=== PATIENT | male | born 1955 | race Native Hawaiian/Other Pacific Islander ===

== ENCOUNTER 2017-07-28 18:38 | Inpatient (IN) | payer OTHER ==
[2017-07-28] MEDS ORDERED: Sodium Chloride 0.9% 1,000 ML IV SCH (19:15)
[2017-07-28 19:27] LABS: URINE BILIRUBIN SMALL (NEGATIVE); URINE BLOOD TRACE-INTACT (NEGATIVE); URINE GLUCOSE (UA) NEGATIVE (NEGATIVE); URINE KETONE >=80 mg/dL (NEGATIVE); URINE LEUKOCYTE ESTERASE TRACE Leu/uL (NEGATIVE); URINE PROTEIN 30 mg/dL (<30 mg/dL); URINE UROBILINOGEN 0.2 E.U./dL (<1 E.U./dL)
[2017-07-28 19:30] LABS: URINE APPEARANCE SL CLOUDY (CLEAR); URINE COLOR YELLOW (YELLOW)
[2017-07-28 19:52] LABS: BASO # 0.04 K/mm3 (0.0-2.0); BASO % 0.2 % (0.0-3.0); GRAN # 18.98 (1.4-6.5); GRAN % 85.1 % (50.0-68.0); HEMATOCRIT 38.5 % (42.0-52.0); LYMPH # 1.2 (1.2-3.4); LYMPH % 5.3 % (22.0-35.0); MEAN CELL VOLUME 82.4 fl (80.0-105.0); MEAN CORPUSCULAR HEMOGLOBIN 28.5 pg (25.0-35.0); MEAN CORPUSCULAR HGB CONC 34.5 g/dl (31.0-37.0); MEAN PLATELET VOLUME 10.1 fl (7.0-11.0); MONO # 2.1 (0.1-0.6); MONO % 9.4 % (1.0-6.0); RED CELL DISTRIBUTION WIDTH 13.4 % (11.5-14.5); WHITE BLOOD COUNT 22.3 10^3/ul (4.5-11.0)
[2017-07-28 19:57] LABS: VENOUS BLOOD GAS BASE EXCESS -1.7 mmol/L (0.0-2.0); VENOUS BLOOD PH 7.42 (7.32-7.43)
[2017-07-28 20:02] LABS: ALB/GLOB RATIO 1.2 (1.1-1.8); ALKALINE PHOSPHATASE 60 U/L (38-126); ALT/SGPT 33 U/L (7-56); AMYLASE 68 U/L (35-125); AST/SGOT 27 U/L (17-59); BILIRUBIN,TOTAL 1.1 mg/dL (0.2-1.3); BLOOD UREA NITROGEN 16 mg/dL (7-21); CARBON DIOXIDE 20 mmol/L (21-33); CHLORIDE 103 mmol/L (98-107); GFR AFRICAN-AMERICAN > 60; GLUCOSE,RANDOM 133 mg/dL (70-110); LIPASE 118 U/L (23-300); POTASSIUM 3.9 mmol/L (3.6-5.0); SODIUM 136 mmol/L (132-148); TOTAL PROTEIN 7.3 g/dL (5.8-8.3)
[2017-07-28 20:06] LABS: INR 1.18 (0.93-1.08); PARTIAL THROMBOPLASTIN TIME 31.5 Seconds (23.7-30.8)
[2017-07-28 20:15] LABS: TROPONIN I < 0.01 ng/mL
[2017-07-28] MEDS ORDERED: metroNIDAZOLE IV 500 mg/100 ml 500 MG/100 ML BAG IVPB STA (20:29)
[2017-07-28] MEDS ORDERED: cefTRIAXone 1 gm 1 GM/100 ML BAG IVPB STA (20:33)
--- NOTE | 2017-07-28 21:36 | ED PDOC ---
Arrival/HPI - General Chief Complaint: Flu-like Symptoms Time Seen by Provider: 07/28/17 19:03 Historian: Patient - History of Present Illness Narrative History of Present Illness (Text): 07/28/17 21:37 A 61 year old male, whose past medical history includes ulcerative colitis, stomach ulcer, GI bleeding and Crohn's disease, presents to the emergency department complaining of abdominal pain and diarrhea for the past few days. Patient also notes chills and subjective fever. Patient denies any chest pain, nausea, vomiting, shortness of breath, headache, dizziness or any other complaints at this time. PMD: Dr. Lindo Time/Duration: < week Symptom Onset: Sudden Symptom Course: Unchanged Activities at Onset: Rest Context: Home Past Medical History - Provider Review Nursing Documentation Reviewed: Yes - Travel History If Yes, travel location?: [place] - Infectious Disease Hx of Infectious Diseases: None - Cardiac Hx Cardiac Disorders: No - Pulmonary Hx Respiratory Disorders: No - Neurological Hx Neurological Disorder: No Hx Paralysis: No - HEENT Hx HEENT Disorder: Yes Hx Cataracts: Yes (bilat iol) - Renal Hx Kidney Stones: Yes Other/Comment: ELEVATED PSA - Endocrine/Metabolic Hx Endocrine Disorders: No - Hematological/Oncological Hx Blood Transfusions: No Hx Blood Transfusion Reaction: No - Integumentary Hx Dermatological Disorder: No - Musculoskeletal/Rheumatological Hx Musculoskeletal Disorders: No - Gastrointestinal Hx Gastrointestinal Disorders: Yes (ulcerative colitis) Hx Bowel Surgery: Yes (colectomy) Hx Crohn's Disease: Yes - Genitourinary/Gynecological Hx Genitourinary Disorders: Yes (elevated psa) Hx Prostate Problems: Yes - Psychiatric Hx Emotional Abuse: No Hx Physical Abuse: No Hx Substance Use: No - Surgical History Hx Cardiac Catheterization: Yes (aug 2014 just routine asymtomatic per pt negative) Other/Comment: TURP and colectomy 2011 - Anesthesia Hx Anesthesia Reactions: No Hx Malignant Hyperthermia: No - Suicidal Assessment Feels Threatened In Home Enviroment: No Family/Social History - Physician Review Nursing Documentation Reviewed: Yes Family/Social History: No Known Family HX Smoking Status: Never Smoked Hx Alcohol Use: Yes (OCCASSIONAL) Frequency of alcohol use: Socially Hx Substance Use: No Allergies/Home Meds Allergies/Adverse Reactions: Allergies No Known Allergies Allergy (Verified 07/28/17 21:54) Home Medications: Home Meds Medication Instructions Recorded Confirmed Vedolizumab [Entyvio] 1 vial IV ONCE 07/28/17 07/28/17 Review of Systems - Physician Review All systems were reviewed & negative as marked: Yes - Review of Systems Constitutional: Fevers, Other (chills) Respiratory: absent: SOB Cardiovascular: absent: Chest Pain Gastrointestinal: Abdominal Pain, Diarrhea. absent: Nausea, Vomiting Neurological: absent: Headache, Dizziness Physical Exam Vital Signs Reviewed: Yes Vital Signs Temp Pulse Resp BP Pulse Ox 07/28/17 20:26 98.6 F 82 18 111/65 96 07/28/17 18:50 100.2 F H 97 H 18 127/63 96 Temperature: Afebrile Blood Pressure: Normal Pulse: Regular Respiratory Rate: Normal Appearance: Positive for: Well-Appearing, Non-Toxic, Comfortable Pain Distress: None Mental Status: Positive for: Alert and Oriented X 3 - Systems Exam Head: Present: Atraumatic, Normocephalic Pupils: Present: PERRL Extroacular Muscles: Present: EOMI Conjunctiva: Present: Normal Mouth: Present: Moist Mucous Membranes Neck: Present: Normal Range of Motion Respiratory/Chest: Present: Clear to Auscultation, Good Air Exchange. No: Respiratory Distress, Accessory Muscle Use Cardiovascular: Present: Regular Rate and Rhythm, Normal S1, S2. No: Murmurs Abdomen: Present: Normal Bowel Sounds. No: Tenderness, Distention, Peritoneal Signs Back: Present: Normal Inspection Upper Extremity: Present: Normal Inspection. No: Cyanosis, Edema Lower Extremity: Present: Normal Inspection. No: Edema Neurological: Present: GCS=15, CN II-XII Intact, Speech Normal Skin: Present: Warm, Dry, Normal Color. No: Rashes Psychiatric: Present: Alert, Oriented x 3, Normal Insight, Normal Concentration Medical Decision Making ED Course and Treatment: 07/28/17 21:34 Impression: A 61 year old male with abdominal pain, diarrhea, fever and chills. Plan: -- EKG -- chest xray -- labs -- Urinalysis -- Rocephin, IV fluids, Flagyl -- Reassess and disposition Prior Visits: Notes and results from previous visits were reviewed. Patient last reported to the emergency department on 11/10/16 for evaluation of non bloody, watery diarrhea. Progress Notes: EKG: Ordered, reviewed, and independently interpreted the EKG. Rate : 89 BPM Rhythm : NSR Interpretation : incomplete right bundle branch block, nonspecific ST segment changes chest xray: No active disease, interpreted by me. case d/w medical billing coder and dr prieto for admission 07/29/17 06:51 - Lab Interpretations Lab Results: 07/28/17 19:30 07/28/17 19:30 Lab Results 07/28/17 19:30: ESR 30 H 07/28/17 19:30: pO2 128 H, VBG pH 7.42, VBG pCO2 34.0 L, VBG HCO3 22.1, VBG Total CO2 23.1, VBG O2 Sat (Calc) 99.4 H, VBG Base Excess -1.7 L, VBG Potassium 4.0, Sodium 134.0, Chloride 104.0, Glucose 140 H, Lactate 1.9, FiO2 21.0, Venous Blood Potassium 4.0 07/28/17 19:30: Sodium 136, Chloride 103, Potassium 3.9, Carbon Dioxide 20 L, Anion Gap 17, BUN 16, Creatinine 1.1, Est GFR ( Amer) > 60, Est GFR (Non- Af Amer) > 60, Random Glucose 133 H, Calcium 9.0, Total Bilirubin 1.1, AST 27, ALT 33, Alkaline Phosphatase 60, Lactate Dehydrogenase 401, Total Creatine Kinase 98, Troponin I < 0.01, Total Protein 7.3, Albumin 4.0, Globulin 3.3, Albumin/Globulin Ratio 1.2, Amylase 68, Lipase 118 07/28/17 19:30: PT 12.7 H, INR 1.18 H, APTT 31.5 H 07/28/17 19:30: WBC 22.3 H D, RBC 4.67, Hgb 13.3 L, Hct 38.5 L, MCV 82.4, MCH 28.5, MCHC 34.5, RDW 13.4, Plt Count 160, MPV 10.1, Gran % 85.1 H, Lymph % (Auto ) 5.3 L, [place] % (Auto) 9.4 H, Eos % (Auto) 0.0 L, Baso % (Auto) 0.2, Gran # 18.98 H, Lymph # 1.2, [place] # 2.1 H, Eos # 0.0, Baso # 0.04 07/28/17 19:00: Urine Color Yellow, Urine Appearance Sl cloudy, Urine pH 6.0, Ur Specific [place] >= 1.030, Urine Protein 30 H, Urine Glucose (UA) Negative, Urine Ketones >=80, Urine Blood Trace-intact H, Urine Nitrate Negative, Urine Bilirubin Small H, Urine Urobilinogen 0.2, Ur Leukocyte Esterase Trace H, Urine RBC 1 - 3, Urine WBC 5 - 10, Ur Epithelial Cells 1 - 3 I have reviewed the lab results: Yes - RAD Interpretation Radiology Orders: 07/28/17 20:01 CHEST PORTABLE [RAD] Stat - EKG Interpretation Interpreted by ED Physician: Yes Type: 12 lead EKG - Medication Orders Current Medication Orders: Acetaminophen (Tylenol 325mg Tab) 650 mg PO Q6H PRN PRN Reason: Fever >100.4 F Docusate Sodium (Colace) 100 mg PO DAILY KRYS Sodium Chloride (Sodium Chloride 0.9%) 1,000 mls @ 150 mls/hr IV .Q6H40M KRYS Morphine Sulfate (Morphine) 2 mg IVP Q4H PRN PRN Reason: Pain, moderate (4-7) Discontinued Medications Sodium Chloride (Sodium Chloride 0.9%) 1,000 mls @ 200 mls/hr IV .Q5H KRYS Last Admin: 07/28/17 19:48 Dose: 200 mls/hr eMAR Start Stop Document 07/28/17 19:48 CNR (Rec: 07/28/17 19:49 CNR [id number] Intravenous Solution Start Date 07/28/17 Start Time 19:49 Metronidazole (Flagyl) 500 mg in 100 mls @ 100 mls/hr IVPB STAT STA PRN Reason: Protocol Stop: 07/28/17 21:28 Last Admin: 07/28/17 21:22 Dose: 100 mls/hr eMAR Start Stop Document 07/28/17 21:22 OCS (Rec: 07/28/17 21:22 OCS [id number]) Intravenous Solution Start Date 07/28/17 Start Time 21:22 Ceftriaxone Sodium (Rocephin 1 Gram Ivpb) 1 gm in 100 mls @ 200 mls/hr IVPB STAT STA PRN Reason: Protocol Stop: 07/28/17 21:02 Last Admin: 07/28/17 20:49 Dose: 200 mls/hr eMAR Start Stop Document 07/28/17 20:49 CNR (Rec: 07/28/17 20:49 CNR [id number]) Intravenous Solution Start Date 07/28/17 Start Time 20:49 Ciprofloxacin (Cipro 400mg/200ml Dsw) 400 mg in 200 mls @ 133.3 mls/hr IVPB Q12 KRYS PRN Reason: Protocol Stop: 07/29/17 00:31 Last Admin: 07/29/17 00:16 Dose: 133.3 mls/hr eMAR Start Stop Document 07/29/17 00:16 MIRIAM (Rec: 07/29/17 00:16 MIRIAM [id number]) Intravenous Solution Start Date 07/29/17 Start Time 00:16 End Date 07/29/17 End time 01:47 Total Infusion Time 91 Pneumococcal Polyvalent Vaccine (Pneumovax 23 Vaccine) 0.5 ml IM .ONCE ONE Stop: 07/28/17 23:14 - Scribe Statement The provider has reviewed the documentation as recorded by the Alvaro Phan Provider Scribe Attestation: All medical record entries made by the Scribcharlene were at my direction and personally dictated by me. I have reviewed the chart and agree that the record accurately reflects my personal performance of the history, physical exam, medical decision making, and the department course for this patient. I have also personally directed, reviewed, and agree with the discharge instructions and disposition. Disposition/Present on Arrival - Present on Arrival Any Indicators Present on Arrival: No History of DVT/PE: No History of Uncontrolled Diabetes: No Urinary Catheter: No History of Decub. Ulcer: No History Surgical Site Infection Following: None - Disposition Have Diagnosis and Disposition been Completed?: Yes Diagnosis: Leucocytosis Disposition: HOSPITALIZED Disposition Time: 21:00 Condition: GOOD
[2017-07-28] MEDS ORDERED: Ciprofloxacin 400mg/200ml D5W 400 MG/200 ML BAG IVPB SCH (23:00)
[2017-07-28] MEDS ORDERED: Pneumococcal 23-Valent Vaccine IM ONE (23:13)
[2017-07-28 23:14] VITALS: BMI 24.2
--- NOTE | 2017-07-29 06:01 | CP.PCM.HP ---
<ChynaAaron - Last Filed: 07/29/17 06:22> History of Present Illness - History of Present Illness History of Present Illness: H/P For IM - TKS DO, PGY-1 CC: Abdominal Pain + Intractible Diarrhea HPI: 61 M PMHx pertinent for Crohn's and UC s/p colectomy presents with ~36 hours duration of crampy, episodic, non-radiating abdominal pain of 8/10 severity associated with n/v/d and f/ch. Patient states that he returned from [place] yesterday, where he had fried chicken and pizza, but nothing out of the ordinary , and that the pain started when he got back. He states that he feels very similarly to the way he felt the last time he was here for the same complaint, which was in 2016. Of note, patient also describes some penile pain, and states that he had a TURP procedure in the past. Pt denies cp/sob/dysuria/frequency/urgency/hematuria/hematochezia/hematemesis PMHx: BPH, Ulcerative Colitis, Crohn's disease, GIB, gastric ulcer, Chronic iron -def anemia PSHx: TURP, prostate biopsy, Colectomy 2011, Left cardiac cath 2013, Bl cataracts SocialHx: +Social etoh; Never smoked, denies h/o drug use. Lives at home with family Allergies: NKDA FamilyHx: Denies Meds: None Present on Admission - Present on Admission Any Indicators Present on Admission: No Review of Systems - Hematologic/Lymphatic Additional comments: ROS: Constitutional: pt denies fever, chills, generalized weakness ENT: pt denies dysphagia, otalgia, hearing deficit, rhinorrhea Eyes: pt denies sudden loss of vision, diplopia, blurred vision MSK: pt denies muscle stiffness, joint pain, extremity cramping Cardio: pt denies sob, heart murmur, cp Pulm: pt denies cough, hemoptysis, wheeze GI: +see hpi : +see hpi; pt denies burning on urination, urinary frequency, hematuria, urinary urgency Neuro: pt denies paresis, paresthesia, dizziness, shirley, numbness, tingling Derm: pt denies skin changes, lesions, nail changes Endo: pt denies intolerance to heat/cold, diaphoresis, night sweats, polydipsia Psych: pt denies anxiety, depression, mood changes Past Patient History - Infectious Disease Hx of Infectious Diseases: None - Past Medical History & Family History Past Medical History?: Yes - Past Social History Smoking Status: Never Smoked - CARDIAC Hx Cardiac Disorders: Yes - PULMONARY Hx Respiratory Disorders: No - NEUROLOGICAL Hx Neurological Disorder: No - HEENT Hx HEENT Problems: Yes Hx Cataracts: Yes (bilat iol) - RENAL Hx Chronic Kidney Disease: Yes Hx Kidney Stones: Yes Other/Comment: ELEVATED PSA - ENDOCRINE/METABOLIC Hx Endocrine Disorders: No - HEMATOLOGICAL/ONCOLOGICAL Hx Blood Disorders: Yes Other/Comment: iron infusions by dr almaguer x 12 weeks - INTEGUMENTARY Hx Dermatological Problems: No - MUSCULOSKELETAL/RHEUMATOLOGICAL Hx Musculoskeletal Disorders: No Hx Falls: No - GASTROINTESTINAL Hx Gastrointestinal Disorders: Yes (ulcerative colitis,GI BLEED) Hx Crohn's Disease: Yes - GENITOURINARY/GYNECOLOGICAL Hx Genitourinary Disorders: Yes (elevated psa) Hx Prostate Problems: Yes - PSYCHIATRIC Hx Emotional Abuse: No Hx Physical Abuse: No Hx Substance Use: No - SURGICAL HISTORY Hx Surgeries: Yes Hx Cardiac Catheterization: Yes (aug 2014 just routine asymtomatic per pt negative) Other/Comment: TURP and colectomy 2011 - ANESTHESIA Hx Anesthesia Reactions: No Hx Malignant Hyperthermia: No Meds Allergies/Adverse Reactions: Allergies Allergy/AdvReac Type Severity Reaction Status Date / Time No Known Allergies Allergy Verified 07/28/17 21:54 Physical Exam - Additional Findings Additional findings: Phys Exam: VS as below Constitutional: a&o x 4, nad Head and Neck: neck supple, no jvd, trachea midline, carotid midline, no cervical/head mass Eyes: contreras, nonicteric sclera, eom intact ENT: auditory acuity grossly intact, throat not congested, no nasal deformity Cardio: rrr, no m/r/g, no carotid bruit, nml s1, s2 Pulm: no accessory muscle use, equal nml breath sounds bilaterally, ctab Abd: +diffuse abdominal tenderness; s/nd, nbs x 4 q, no palpable masses Derm: no rashes, no ulcers, no lesions Extr: no edema, no cyanosis, no calf tenderness, no lesions, no varicosities Neuro: cn II-XII grossly intact, ue and le 5/5 muscle strength bilaterally, no los ue, le bilaterally and core Results - Vital Signs Recent Vital Signs: Last Vital Signs Temp 98.6 F 07/28/17 22:59 Pulse 82 07/28/17 22:59 Resp 18 07/28/17 22:59 BP 111/65 07/28/17 22:59 Pulse Ox 98 07/28/17 22:57 - Labs Result Diagrams: 07/28/17 19:30 07/28/17 19:30 Assessment & Plan - Assessment and Plan (Free Text) Assessment: A/P 61 M w/ PMHx of UC and Crohn's presenting 36 hour duration abdominal pain + n/v/ d/f/ch, indicative of previous bouts of colitis Abdominal pain Patient has a h/o Crohn's disease s/p partical colectomy with anal sparing Previous CT A/P with po contrast shows s/p extensive partial colectomy, cholelithiasis without evidence of cholecystitis; No acute findings CT A/P with IV contrast ordered GI C/s: Dr. Albarran Stool studies with ova and parasites, c diff, cultures, electrolytes, occult blood Cipro/Flagyl IV morphine 2mg Q4hr PRN abdominal pain Dehydration - likely 2/2 diarrhea NS @ 125cc/hr Hx/o GIB, gastric ulcer No signs of GIB at this time DVT/GI ppx SCDs, Protonix TKS, DO PGY-1. D/w Dr. Harinder Gaming <Angela Gaming N - Last Filed: 07/30/17 06:18> History of Present Illness - History of Present Illness History of Present Illness: 61 yrs old male with hx of chrohn,s +?ulcerative colitis on vedolizumab , recently travelled to [place] and ate pizza and chicken , started having abdominal pain and watery diarrhea multiple times associated with chills and in the hospital had fever of 101.and elevated wbc of 22 ,000. pt has severe tenderness in the abdomen generalized. Results - Vital Signs Recent Vital Signs: Last Vital Signs Temp 98.8 F 07/30/17 00:00 Pulse 86 07/30/17 00:00 Resp 20 07/30/17 00:00 BP 100/49 L 07/29/17 06:00 Pulse Ox 97 07/29/17 06:00 - Labs Result Diagrams: 07/29/17 07:30 07/29/17 07:30 Labs: Laboratory Results - last 24 hr 07/29/17 07/29/17 07/29/17 07:30 07:30 10:50 WBC 22.1 H RBC 4.55 Hgb 12.8 L Hct 37.8 L MCV 83.1 MCH 28.1 MCHC 33.9 RDW 13.7 Plt Count 150 MPV 11.0 Gran % 82.7 H Lymph % (Auto) 7.2 L [place] % (Auto) 10.0 H Eos % (Auto) 0.0 L Baso % (Auto) 0.1 Gran # 18.25 H Lymph # 1.6 [place] # 2.2 H Eos # 0.0 Baso # 0.02 Sodium 137 Potassium 3.7 Chloride 106 Carbon Dioxide 20 L Anion Gap 15 BUN 11 Creatinine 1.0 Est GFR ( Amer) > 60 Est GFR (Non-Af Amer) > 60 Random Glucose 95 Calcium 8.8 Phosphorus 1.8 L Magnesium 1.7 Total Bilirubin 1.0 AST 24 ALT 29 Alkaline Phosphatase 74 Total Protein 7.0 Albumin 3.7 Globulin 3.3 Albumin/Globulin Ratio 1.1 Procalcitonin 3.22 H
[2017-07-29] MEDS ORDERED: Morphine 2 mg/ml ISec IVP PRN (06:47)
[2017-07-29 08:00] LABS: BASO # 0.02 K/mm3 (0.0-2.0); BASO % 0.1 % (0.0-3.0); GRAN # 18.25 (1.4-6.5); GRAN % 82.7 % (50.0-68.0); HEMATOCRIT 37.8 % (42.0-52.0); LYMPH # 1.6 (1.2-3.4); LYMPH % 7.2 % (22.0-35.0); MEAN CELL VOLUME 83.1 fl (80.0-105.0); MEAN CORPUSCULAR HEMOGLOBIN 28.1 pg (25.0-35.0); MEAN CORPUSCULAR HGB CONC 33.9 g/dl (31.0-37.0); MONO # 2.2 (0.1-0.6); RED CELL DISTRIBUTION WIDTH 13.7 % (11.5-14.5); WHITE BLOOD COUNT 22.1 10^3/ul (4.5-11.0)
[2017-07-29 08:15] LABS: ALB/GLOB RATIO 1.1 (1.1-1.8); ALKALINE PHOSPHATASE 74 U/L (38-126); ALT/SGPT 29 U/L (7-56); AST/SGOT 24 U/L (17-59); BLOOD UREA NITROGEN 11 mg/dL (7-21); CALCIUM 8.8 mg/dL (8.4-10.5); CARBON DIOXIDE 20 mmol/L (21-33); CHLORIDE 106 mmol/L (98-107); GFR AFRICAN-AMERICAN > 60; GLUCOSE,RANDOM 95 mg/dL (70-110); MAGNESIUM 1.7 mg/dL (1.7-2.2); PHOSPHOROUS 1.8 mg/dL (2.5-4.5); POTASSIUM 3.7 mmol/L (3.6-5.0); SODIUM 137 mmol/L (132-148)
[2017-07-29] MEDS ORDERED: Iohexol 350 MG/100 ML VIAL ONE (08:22)
--- NOTE | 2017-07-29 08:42 | CARD ---
APPROVED REPORT EKG Measurement Heart [id number] <Conclusion> Normal sinus rhythm Left axis deviation Incomplete right bundle branch block Septal infarct, age undetermined No change
[2017-07-29] MEDS ORDERED: Sodium Phosphate 15 MMOLE in Sodium Chloride 0.9% 250 ML IVPB ONE (09:12)
--- NOTE | 2017-07-29 09:47 | CT ---
PROCEDURE: CT Abdomen and Pelvis with contrast HISTORY: abd pain + nvd COMPARISON: 11/10/2016 TECHNIQUE: Contrast dose: 100 mL Omnipaque 350 Radiation dose: Total exam DLP = 303.94 mGy-cm. This CT exam was performed using one or more of the following dose reduction techniques: Automated exposure control, adjustment of the mA and/or kV according to patient size, and/or use of iterative reconstruction technique. FINDINGS: LOWER THORAX: Unremarkable. LIVER: Two small stable low-density lesions in the right lobe of the liver, 7 mm inferior and 12 mm superiorly. No change. No other mass. No biliary dilatation. Smooth contour. Normal attenuation. GALLBLADDER AND BILE DUCTS: Cholelithiasis. No evidence of cholecystitis. PANCREAS: Unremarkable. No gross lesion or ductal dilatation. SPLEEN: Unremarkable. ADRENALS: Unremarkable. No mass. KIDNEYS AND URETERS: Nonobstructing 2-3 mm mid left renal calculus. Left lower pole renal cortical cyst, 1.5 cm. This is difficult to appreciate on prior noncontrast CT examination. No hydronephrosis. VASCULATURE: Unremarkable. No aortic aneurysm. BOWEL: Status post extensive subtotal colectomy. Surgical anastomotic sutures seen in rectum. No bowel obstruction. APPENDIX: Not identified PERITONEUM: Unremarkable. No free fluid. No free air. LYMPH NODES: Unremarkable. No enlarged lymph nodes. BLADDER: Nondistended REPRODUCTIVE: Normal prostate BONES: No acute fracture. OTHER FINDINGS: None. IMPRESSION: Unremarkable contrast enhanced CT of the abdomen and pelvis. Status post extensive subtotal colectomy. No bowel obstruction. No change from 11/10/2016. Additional minor findings as above.
[2017-07-29] MEDS ORDERED: cefTRIAXone 1 gm 1 GM/100 ML BAG IVPB SCH (10:00)
--- NOTE | 2017-07-29 10:00 | RAD ---
HISTORY: cp COMPARISON: No prior. FINDINGS: LUNGS: Left basilar subsegmental atelectasis. No acute infiltrate. PLEURA: No significant pleural effusion identified, no pneumothorax apparent. CARDIOVASCULAR: Normal. OSSEOUS STRUCTURES: No significant abnormalities. VISUALIZED UPPER ABDOMEN: Normal. OTHER FINDINGS: None. IMPRESSION: No active disease.
[2017-07-29] MEDS: Vancomycin 1gm in NS 250ml 1 GM/250 ML BAG IVPB SCH ×2 (11:59→22:45)
[2017-07-29] MEDS: Meropenem 1g/NS 100mL IVPB 1 GM/100 ML PIGGYBACK IVPB SCH ×3 (12:00→21:38)
[2017-07-29] MEDS: levoFLOXacin 750 mg in D5W 750 MG/150 ML BAG IVPB SCH (12:00)
[2017-07-29] MEDS ORDERED: metroNIDAZOLE IV 500 mg/100 ml 500 MG/100 ML BAG IVPB SCH (14:00)
--- NOTE | 2017-07-29 15:28 | CON ---
DATE: 07/29/2017 LOCATION: The patient is seen earlier this morning in #[id number]. CHIEF COMPLAINT: Fevers and chills x1 to 2 days' duration. HISTORY OF PRESENT ILLNESS: This is a 61-year-old male, originally from [facility], who has a history of ulcerative colitis, history of GI bleed, who is admitted with abdominal discomfort, mild shortness of breath and diarrhea for a few days, now with fevers and chills. He denies any cough. He is having some shortness of breath, mild headaches. No dysuria or frequency. PAST MEDICAL HISTORY: Significant for ulcerative colitis, cataract, kidney stones, BPH. The patient was hospitalized in October 2016, had acute kidney failure secondary to gastroenteritis. PAST SURGICAL HISTORY: Significant for TURP; colonoscopy, upper endoscopy and colectomy; cardiac catheterization, as per the patient that was done in August 2014, which was negative and the patient had a colectomy in 2011. MEDICATIONS: Include, the patient is on vedolizumab and Tbo and the patient states that he was checked for tuberculosis prior to the medication and it was reported to be negative. PHYSICAL EXAMINATION: GENERAL: He is in bed. He has significant chills. VITAL SIGNS: Temperature of 103, heart rate of 102, blood pressure is 100/40 and respiratory rate of 20. The patient's saturation at 97%. HEENT: Unremarkable. NECK: Supple. LUNGS: Decreased breath sounds. HEART: Normal S1 and S2. ABDOMEN: Soft and nontender. No organomegaly. No rebound. No guarding. No masses. LABORATORY DATA: Reveal the patient's white count of 22,000; hemoglobin of 13 and platelets of 160. The patient has 85% granulocytosis. Coagulation is noted and INR of 1.18. Blood gases are reviewed with a pH of 7.43, pCO2 is 34 and FiO2 of 21%. Chemistries reveal the patient has sodium of 136, bicarb is 20, glucose is 133. LFTs are normal, alk phos is normal. Creatinine is 1.1 with a normal GFR. Amylase and lipase are normal. Troponin is negative. Phosphorus is low at 1.8. Urinalysis is noted to have 5 to 10 wbc's with 30 proteins. The patient had a CAT scan of the abdomen, no significant findings and the chest x-ray is reported to be atelectasis, this was read by Dr. Hua Romeo. History and physical examination is reviewed. ASSESSMENT AND PLAN: This is a 61-year-old male from [facility] with ulcerative colitis, on vedolizumab with history of cataracts, kidney stones, benign prostatic hypertrophy, history of kidney failure in October, now presenting with a fever of 103, mild shortness of breath. 1. Systemic inflammatory response syndrome with a white count of 22,000, must rule out healthcare-associated pneumonia through the exam, although the chest x-ray's report is atelectasis versus gastrointestinal pathology. Since the patient has significant fevers and chills, we will start vanco, meropenem and Levaquin and pending hammer culture, blood, urine, stool cultures, CAT scan of the chest, legionella, procalcitonin and we will discontinue the ceftriaxone and we will make further recommendations upon availability. The patient had a tuberculosis workup which was negative as per the patient prior to him starting on vedolizumab. Bradley Craig MD
[2017-07-30] MEDS: Meropenem 1g/NS 100mL IVPB 1 GM/100 ML PIGGYBACK IVPB SCH ×3 (05:20→21:10)
[2017-07-30 07:13] LABS: BASO # 0.02 K/mm3 (0.0-2.0); BASO % 0.1 % (0.0-3.0); EOS # 0.1 (0.0-0.7); EOS % 0.6 % (1.5-5.0); GRAN # 14.6 (1.4-6.5); GRAN % 83.2 % (50.0-68.0); HEMATOCRIT 35.2 % (42.0-52.0); LYMPH # 1.4 (1.2-3.4); LYMPH % 7.8 % (22.0-35.0); MEAN CELL VOLUME 82.2 fl (80.0-105.0); MEAN CORPUSCULAR HGB CONC 34.1 g/dl (31.0-37.0); MEAN PLATELET VOLUME 10.5 fl (7.0-11.0); MONO # 1.5 (0.1-0.6); MONO % 8.3 % (1.0-6.0); RED CELL DISTRIBUTION WIDTH 13.6 % (11.5-14.5); WHITE BLOOD COUNT 17.5 10^3/ul (4.5-11.0)
[2017-07-30 07:14] LABS: ALKALINE PHOSPHATASE 67 U/L (38-126); ALT/SGPT 28 U/L (7-56); AST/SGOT 21 U/L (17-59); BILIRUBIN,TOTAL 0.8 mg/dL (0.2-1.3); BLOOD UREA NITROGEN 8 mg/dL (7-21); CALCIUM 8.4 mg/dL (8.4-10.5); CARBON DIOXIDE 21 mmol/L (21-33); CHLORIDE 108 mmol/L (98-107); GFR AFRICAN-AMERICAN > 60; GLUCOSE,RANDOM 105 mg/dL (70-110); MAGNESIUM 1.9 mg/dL (1.7-2.2); POTASSIUM 3.8 mmol/L (3.6-5.0); SODIUM 136 mmol/L (132-148); TOTAL PROTEIN 6.3 g/dL (5.8-8.3)
[2017-07-30 07:32] LABS: PHOSPHOROUS 1.3 mg/dL (2.5-4.5)
[2017-07-30] MEDS: levoFLOXacin 750 mg in D5W 750 MG/150 ML BAG IVPB SCH (09:48)
[2017-07-30] MEDS: Sodium Chloride 0.9% 1,000 ML IV SCH ×2 (09:48→15:36)
[2017-07-30] MEDS: Vancomycin 1gm in NS 250ml 1 GM/250 ML BAG IVPB SCH ×2 (11:05→21:59)
--- NOTE | 2017-07-30 13:48 | CP.PCM.PN ---
Subjective - Date & Time of Evaluation Date of Evaluation: 07/30/17 Time of Evaluation: 10:25 - Subjective Subjective: Patient is feeling better, no fevers overnight, no nausea, no diarrhea, no cough currently. Objective - Vital Signs/Intake and Output Vital Signs (last 24 hours): Temp Pulse Resp BP Pulse Ox 99.4 F 74 20 123/70 98 07/30/17 06:00 07/30/17 06:00 07/30/17 06:00 07/30/17 06:00 07/30/17 06:00 Intake and Output: 07/30/17 07/30/17 06:59 18:59 Intake Total 2120 Balance 2120 - Medications Medications: Current Medications Acetaminophen (Tylenol 325mg Tab) 650 mg PO Q6H PRN PRN Reason: Fever >100.4 F Last Admin: 07/29/17 17:30 Dose: 650 mg Docusate Sodium (Colace) 100 mg PO DAILY [facility] Last Admin: 07/30/17 09:48 Dose: Not Given Sodium Chloride (Sodium Chloride 0.9%) 1,000 mls @ 150 mls/hr IV .Q6H40M [facility] Last Admin: 07/30/17 09:48 Dose: Not Given Meropenem 1g/NS 100mL IVPB (Meropenem 1g/Ns 100ml Ivpb) 1 gm in 100 mls @ 100 mls/hr IVPB Q8 KRYS PRN Reason: Protocol Stop: 08/07/17 10:46 Last Admin: 07/30/17 05:20 Dose: 100 mls/hr Vancomycin HCl (Vancomycin 1gm) 1 gm in 250 mls @ 167 mls/hr IVPB Q12H KRYS PRN Reason: Protocol Stop: 08/07/17 10:46 Last Admin: 07/29/17 22:45 Dose: 167 mls/hr Levofloxacin/Dextrose (Levaquin 750mg) 750 mg in 150 mls @ 100 mls/hr IVPB DAILY [facility] Stop: 08/07/17 10:46 Last Admin: 07/30/17 09:48 Dose: 100 mls/hr Morphine Sulfate (Morphine) 2 mg IVP Q4H PRN PRN Reason: Pain, moderate (4-7) - Labs Labs: 07/30/17 06:58 07/30/17 06:58 PT 12.7 Seconds (9.9-11.8) H 07/28/17 19:30 INR 1.18 (0.93-1.08) H 07/28/17 19:30 APTT 31.5 Seconds (23.7-30.8) H 07/28/17 19:30 - Constitutional Appears: Non-toxic, No Acute Distress - Head Exam Head Exam: NORMAL INSPECTION - ENT Exam ENT Exam: Mucous Membranes Moist - Neck Exam Neck Exam: absent: Lymphadenopathy, Meningismus - Respiratory Exam Respiratory Exam: Decreased Breath Sounds - Cardiovascular Exam Cardiovascular Exam: +S1, +S2 - GI/Abdominal Exam GI & Abdominal Exam: Soft. absent: Tenderness Assessment and Plan - Assessment and Plan (Free Text) Plan: Assessment Systemic Inflammatory Response Syndrome, R/O healthcare-associated pneumonia benign prostatic hyperplasia history of cataracts ulcerative colitis S/P subtotal colectomy on Vedolizumab history of kidney stones Plan Continue Vancomycin, Merrem and Levaquin day 2 pending final blood cx results, CT chest, urine Legionella Ag; PCT is elevated at 3.22 - will trend PCT and order for tomorrow will monitor clinically
--- NOTE | 2017-07-30 14:23 | CT ---
PROCEDURE: CT Chest without contrast HISTORY: r/ o infiltrate COMPARISON: None. TECHNIQUE: Contiguous axial images were obtained through the chest without intravenous contrast enhancement. Sagittal and coronal reconstructions were performed. Radiation dose (DLP): 263 mGy-cm. This CT exam was performed using one or more of the following dose reduction techniques: Automated exposure control, adjustment of the mA and/or kV according to patient size, and/or use of iterative reconstruction technique. FINDINGS: LUNGS: There is a focal density in the right middle lobe anteriorly that most likely represents scarring. Pneumonia is less likely. This is seen on image 77 series 4. The lungs are otherwise clear. MEDIASTINUM: Unremarkable thoracic aorta. No aneurysm. Normal sized heart. Main pulmonary artery unremarkable. No vascular congestion. No lymphadenopathy. PLEURA: No pleural fluid. No pneumothorax. BONES: No fracture. No destructive lesion. UPPER ABDOMEN: Grossly unremarkable. OTHER FINDINGS: None. IMPRESSION: There is a focal density in the right middle lobe anteriorly that most likely represents scarring. Pneumonia is less likely. This is seen on image 77 series 4. The lungs are otherwise clear.
--- NOTE | 2017-07-30 15:21 | CP.PCM.PN ---
<Joel Davis - Last Filed: 07/30/17 17:33> Subjective - Date & Time of Evaluation Date of Evaluation: 07/30/17 Time of Evaluation: 07:50 - Subjective Subjective: Medicine- Dr. Hernandez Pt seen and examined at bedside this AM. Had one episode of lose BM. Fever broke overnight. c/o current pain with urination. Currently Afebrile. tolerating current diet. Denies current N/V CP/SOB F/C/REED BRPR Objective - Vital Signs/Intake and Output Vital Signs (last 24 hours): Temp Pulse Resp BP Pulse Ox 99.4 F 74 20 123/70 98 07/30/17 06:00 07/30/17 06:00 07/30/17 06:00 07/30/17 06:00 07/30/17 06:00 Intake and Output: 07/30/17 07/30/17 06:59 18:59 Intake Total 2120 780 Balance 2120 780 - Medications Medications: Current Medications Acetaminophen (Tylenol 325mg Tab) 650 mg PO Q6H PRN PRN Reason: Fever >100.4 F Last Admin: 07/29/17 17:30 Dose: 650 mg Docusate Sodium (Colace) 100 mg PO DAILY [facility] Last Admin: 07/30/17 09:48 Dose: Not Given Sodium Chloride (Sodium Chloride 0.9%) 1,000 mls @ 150 mls/hr IV .Q6H40M [facility] Last Admin: 07/30/17 09:48 Dose: Not Given Meropenem 1g/NS 100mL IVPB (Meropenem 1g/Ns 100ml Ivpb) 1 gm in 100 mls @ 100 mls/hr IVPB Q8 KRYS PRN Reason: Protocol Stop: 08/07/17 10:46 Last Admin: 07/30/17 05:20 Dose: 100 mls/hr Vancomycin HCl (Vancomycin 1gm) 1 gm in 250 mls @ 167 mls/hr IVPB Q12H KRYS PRN Reason: Protocol Stop: 08/07/17 10:46 Last Admin: 07/30/17 11:05 Dose: 167 mls/hr Levofloxacin/Dextrose (Levaquin 750mg) 750 mg in 150 mls @ 100 mls/hr IVPB DAILY [facility] Stop: 08/07/17 10:46 Last Admin: 07/30/17 09:48 Dose: 100 mls/hr Morphine Sulfate (Morphine) 2 mg IVP Q4H PRN PRN Reason: Pain, moderate (4-7) - Labs Labs: 07/30/17 06:58 07/30/17 06:58 PT 12.7 Seconds (9.9-11.8) H 07/28/17 19:30 INR 1.18 (0.93-1.08) H 07/28/17 19:30 APTT 31.5 Seconds (23.7-30.8) H 07/28/17 19:30 - Constitutional Appears: Non-toxic, No Acute Distress - Head Exam Head Exam: ATRAUMATIC - Eye Exam Eye Exam: Normal appearance. absent: Scleral icterus - ENT Exam ENT Exam: Mucous Membranes Moist - Respiratory Exam Respiratory Exam: NORMAL BREATHING PATTERN. absent: Accessory Muscle Use, Respiratory Distress - Cardiovascular Exam Cardiovascular Exam: +S1, +S2 - GI/Abdominal Exam GI & Abdominal Exam: Soft. absent: Distended, Firm, Guarding, Tenderness - Neurological Exam Neurological Exam: Alert, Awake, Oriented x3 - Skin Skin Exam: Normal Color, Warm Assessment and Plan - Assessment and Plan (Free Text) Assessment: 61M w/ PMH of UC c/o abdominal pain that is progressively getting better. Leukocytosis trending downward. UA/UC negative. final BCx pending. Abdominal pain * abd pain resolving, continue to monitor * Previous CT A/P with po contrast shows s/p extensive partial colectomy, cholelithiasis without evidence of cholecystitis; No acute findings * CT A/P with IV contrast ordered * GI Avis Recs * C.Diff toxin negative. * Cipro/Flagyl * IV morphine 2mg Q4hr PRN abdominal pain Luekocytosis * Trending downwards * continue to monitor w/ daily CBC * ID on board, contining broad spectrum antibiotics. final BCx pending Dehydration - likely 2/2 diarrhea * NS @ 125cc/hr Hx/o GIB, gastric ulcer No signs of GIB at this time DVT/GI ppx SCDs, Protonix case discussed in detail with Dr. Mary Davis PGY1 <Mary DAVALOS,Kayce - Last Filed: 07/31/17 13:31> Objective - Vital Signs/Intake and Output Vital Signs (last 24 hours): Temp Pulse Resp BP Pulse Ox 97.9 F 81 20 125/67 97 07/31/17 10:10 07/31/17 06:00 07/31/17 06:00 07/31/17 06:00 07/31/17 06:00 Intake and Output: 07/31/17 07/31/17 06:59 18:59 Intake Total 300 100 Balance 300 100 - Medications Medications: Current Medications Acetaminophen (Tylenol 325mg Tab) 650 mg PO Q6H PRN PRN Reason: Fever >100.4 F Last Admin: 07/31/17 09:10 Dose: 650 mg Docusate Sodium (Colace) 100 mg PO DAILY [facility] Last Admin: 07/31/17 09:11 Dose: Not Given Sodium Chloride (Sodium Chloride 0.9%) 1,000 mls @ 150 mls/hr IV .Q6H40M [facility] Last Admin: 07/30/17 15:36 Dose: 150 mls/hr Meropenem 1g/NS 100mL IVPB (Meropenem 1g/Ns 100ml Ivpb) 1 gm in 100 mls @ 100 mls/hr IVPB Q8 KRYS PRN Reason: Protocol Stop: 08/07/17 10:46 Last Admin: 07/31/17 13:11 Dose: 100 mls/hr Vancomycin HCl (Vancomycin 1gm) 1 gm in 250 mls @ 167 mls/hr IVPB Q12H KRYS PRN Reason: Protocol Stop: 08/07/17 10:46 Last Admin: 07/31/17 12:02 Dose: 167 mls/hr Levofloxacin/Dextrose (Levaquin 750mg) 750 mg in 150 mls @ 100 mls/hr IVPB DAILY [facility] Stop: 08/07/17 10:46 Last Admin: 07/31/17 09:11 Dose: 100 mls/hr Potassium Phosphate 15 mmole/ (Sodium Chloride) 255 mls @ 42.5 mls/hr IVPB ONCE ONE Stop: 07/31/17 13:59 Last Admin: 07/31/17 09:12 Dose: 42.5 mls/hr Morphine Sulfate (Morphine) 2 mg IVP Q4H PRN PRN Reason: Pain, moderate (4-7) Pantoprazole Sodium (Protonix Ec Tab) 20 mg PO 0600 [facility] Potassium Phos/Sodium Phos (Neutra-Phos) 1 pkt PO TID KRYS Stop: 08/02/17 18:01 Last Admin: 07/31/17 13:11 Dose: 1 pkt - Labs Labs: 07/31/17 06:10 07/31/17 06:10 PT 12.7 Seconds (9.9-11.8) H 07/28/17 19:30 INR 1.18 (0.93-1.08) H 07/28/17 19:30 APTT 31.5 Seconds (23.7-30.8) H 07/28/17 19:30 Attending/Attestation - Attestation I have personally seen and examined this patient.: Yes I have fully participated in the care of the patient.: Yes I have reviewed all pertinent clinical information, including history, physical exam and plan: Yes Notes (Text): 07/31/17 13:28 Patient was seen and examined with medical biller coder. Agreed with resident assessment and plan. 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 Patient also has Hypophosphatemia, replacement has been given, we will follow up results. Management plan was discussed in detail with patient Education was provided.
[2017-07-30] MEDS ORDERED: Potassium Phosphate 3 mmol/ml Inj IV STA (15:54)
[2017-07-30] MEDS ORDERED: Potassium Phosphate 15 MMOLE in Sodium Chloride 0.9% 250 ML IV ONE (16:15)
[2017-07-30] MEDS: Potassium & Sodium Phosphate PO SCH (17:22)
[2017-07-31] MEDS: Meropenem 1g/NS 100mL IVPB 1 GM/100 ML PIGGYBACK IVPB SCH ×3 (05:32→21:36)
[2017-07-31 06:18] LABS: BASO # 0.02 K/mm3 (0.0-2.0); BASO % 0.2 % (0.0-3.0); EOS # 0.1 (0.0-0.7); EOS % 1.1 % (1.5-5.0); GRAN # 7.52 (1.4-6.5); GRAN % 81.1 % (50.0-68.0); HEMATOCRIT 34.8 % (42.0-52.0); LYMPH # 0.6 (1.2-3.4); LYMPH % 6.9 % (22.0-35.0); MEAN CELL VOLUME 81.7 fl (80.0-105.0); MEAN CORPUSCULAR HEMOGLOBIN 28.2 pg (25.0-35.0); MEAN CORPUSCULAR HGB CONC 34.5 g/dl (31.0-37.0); MEAN PLATELET VOLUME 10.6 fl (7.0-11.0); MONO % 10.7 % (1.0-6.0); RED CELL DISTRIBUTION WIDTH 13.5 % (11.5-14.5); WHITE BLOOD COUNT 9.3 10^3/ul (4.5-11.0)
[2017-07-31] MEDS ORDERED: Potassium Phosphate 3 mmol/ml Inj IV STA (07:46)
[2017-07-31] MEDS ORDERED: Potassium Phosphate 15 MMOLE in Sodium Chloride 0.9% 250 ML IVPB ONE (08:00)
[2017-07-31 08:16] LABS: ALKALINE PHOSPHATASE 69 U/L (38-126); ALT/SGPT 28 U/L (7-56); AST/SGOT 21 U/L (17-59); BILIRUBIN,TOTAL 0.6 mg/dL (0.2-1.3); BLOOD UREA NITROGEN 6 mg/dL (7-21); CALCIUM 8.2 mg/dL (8.4-10.5); CARBON DIOXIDE 20 mmol/L (21-33); CHLORIDE 109 mmol/L (98-107); GFR AFRICAN-AMERICAN > 60; GLUCOSE,RANDOM 100 mg/dL (70-110); POTASSIUM 3.6 mmol/L (3.6-5.0); SODIUM 138 mmol/L (132-148); TOTAL PROTEIN 6.1 g/dL (5.8-8.3)
[2017-07-31] MEDS: Potassium & Sodium Phosphate PO SCH ×3 (09:10→17:12)
[2017-07-31] MEDS: levoFLOXacin 750 mg in D5W 750 MG/150 ML BAG IVPB SCH (09:11)
--- NOTE | 2017-07-31 09:47 | CP.PCM.PN ---
<Edd Beard - Last Filed: 07/31/17 14:10> Subjective - Date & Time of Evaluation Date of Evaluation: 07/31/17 Time of Evaluation: 09:41 - Subjective Subjective: Pt seen and examined at bedside. Pt with fever of 101.7 F last night. Pt states he started feeling chills last night as well. Otherwise, his loose stools are back to baseline. No other complaints. Denies CP, SOB, nausea, vomiting. Objective - Vital Signs/Intake and Output Vital Signs (last 24 hours): Temp Pulse Resp BP Pulse Ox 100.1 F H 81 20 125/67 97 07/31/17 09:10 07/31/17 06:00 07/31/17 06:00 07/31/17 06:00 07/31/17 06:00 Intake and Output: 07/31/17 07/31/17 06:59 18:59 Intake Total 300 100 Balance 300 100 - Medications Medications: Current Medications Acetaminophen (Tylenol 325mg Tab) 650 mg PO Q6H PRN PRN Reason: Fever >100.4 F Last Admin: 07/31/17 09:10 Dose: 650 mg Docusate Sodium (Colace) 100 mg PO DAILY [facility] Last Admin: 07/31/17 09:11 Dose: Not Given Sodium Chloride (Sodium Chloride 0.9%) 1,000 mls @ 150 mls/hr IV .Q6H40M [facility] Last Admin: 07/30/17 15:36 Dose: 150 mls/hr Meropenem 1g/NS 100mL IVPB (Meropenem 1g/Ns 100ml Ivpb) 1 gm in 100 mls @ 100 mls/hr IVPB Q8 KRYS PRN Reason: Protocol Stop: 08/07/17 10:46 Last Admin: 07/31/17 05:32 Dose: 100 mls/hr Vancomycin HCl (Vancomycin 1gm) 1 gm in 250 mls @ 167 mls/hr IVPB Q12H KRYS PRN Reason: Protocol Stop: 08/07/17 10:46 Last Admin: 07/30/17 21:59 Dose: 167 mls/hr Levofloxacin/Dextrose (Levaquin 750mg) 750 mg in 150 mls @ 100 mls/hr IVPB DAILY [facility] Stop: 08/07/17 10:46 Last Admin: 07/31/17 09:11 Dose: 100 mls/hr Potassium Phosphate 15 mmole/ (Sodium Chloride) 255 mls @ 42.5 mls/hr IVPB ONCE ONE Stop: 07/31/17 13:59 Last Admin: 07/31/17 09:12 Dose: 42.5 mls/hr Morphine Sulfate (Morphine) 2 mg IVP Q4H PRN PRN Reason: Pain, moderate (4-7) Potassium Phos/Sodium Phos (Neutra-Phos) 1 pkt PO TID KRYS Stop: 08/02/17 18:01 Last Admin: 07/31/17 09:10 Dose: 1 pkt - Labs Labs: 07/31/17 06:10 07/31/17 06:10 PT 12.7 Seconds (9.9-11.8) H 07/28/17 19:30 INR 1.18 (0.93-1.08) H 07/28/17 19:30 APTT 31.5 Seconds (23.7-30.8) H 07/28/17 19:30 - Constitutional Appears: Non-toxic, No Acute Distress - Head Exam Head Exam: ATRAUMATIC, NORMAL INSPECTION, NORMOCEPHALIC - Respiratory Exam Respiratory Exam: Clear to Ausculation Bilateral, NORMAL BREATHING PATTERN. absent: Rales, Rhonchi, Wheezes - Cardiovascular Exam Cardiovascular Exam: RRR, +S1, +S2 - GI/Abdominal Exam GI & Abdominal Exam: Soft, Normal Bowel Sounds. absent: Tenderness - Extremities Exam Extremities Exam: Normal Inspection. absent: Calf Tenderness, Pedal Edema - Neurological Exam Neurological Exam: Alert, Awake, Oriented x3 - Psychiatric Exam Psychiatric exam: Normal Affect, Normal Mood - Skin Skin Exam: Intact, Normal Color, Warm Assessment and Plan - Assessment and Plan (Free Text) Plan: 61 y/o M with PMH of UC presenting with abdominal pain. Pain is resolved at this time. Pt developed fever last night despite being on antibiotic therapy. Will reculture patient. Previous blood and urine cultures negative at this time with elevated procalcitonin. C. diff stool testing negative. Patient is being followed by ID and GI. Abdominal pain Resolved at this time Regular diet Previous Abdomen/Pelvis CT with oral contrast demonstrates extensive, subtotal colectomy GI following, Dr. Albarran R/O Healthcare acquired pneumonia CT chest demonstrating right middle lobe scarring, unlikely pneumonia Legionella pending Procalcitonin elevated Urine and blood Culture negative On Vancomycin, Merrem, and Levaquin ID following, Dr. Shafer Dehydration NS @ 150 Continue monitor electrolytes, replenish as needed PPX Protonix SCDs Kisha, PGY-2 <Kayce Hernandez - Last Filed: 08/01/17 16:15> Objective - Vital Signs/Intake and Output Vital Signs (last 24 hours): Temp Pulse Resp BP Pulse Ox 97.6 F 78 20 118/83 98 08/01/17 06:00 08/01/17 06:00 08/01/17 06:00 08/01/17 06:00 08/01/17 06:00 Intake and Output: 08/01/17 08/01/17 06:59 18:59 Intake Total 1920 960 Balance 1920 960 - Medications Medications: Current Medications Acetaminophen (Tylenol 325mg Tab) 650 mg PO Q6H PRN PRN Reason: Fever >100.4 F Last Admin: 08/01/17 01:30 Dose: 650 mg Docusate Sodium (Colace) 100 mg PO DAILY [facility] Last Admin: 08/01/17 09:30 Dose: 100 mg Sodium Chloride (Sodium Chloride 0.9%) 1,000 mls @ 150 mls/hr IV .Q6H40M [facility] Last Admin: 08/01/17 03:00 Dose: 150 mls/hr Meropenem 1g/NS 100mL IVPB (Meropenem 1g/Ns 100ml Ivpb) 1 gm in 100 mls @ 100 mls/hr IVPB Q8 KRYS PRN Reason: Protocol Stop: 08/07/17 10:46 Last Admin: 08/01/17 14:28 Dose: 100 mls/hr Vancomycin HCl (Vancomycin 1gm) 1 gm in 250 mls @ 167 mls/hr IVPB Q12H KRYS PRN Reason: Protocol Stop: 08/07/17 10:46 Last Admin: 08/01/17 11:31 Dose: 167 mls/hr Levofloxacin/Dextrose (Levaquin 750mg) 750 mg in 150 mls @ 100 mls/hr IVPB DAILY [facility] Stop: 08/07/17 10:46 Last Admin: 08/01/17 09:30 Dose: 100 mls/hr Morphine Sulfate (Morphine) 2 mg IVP Q4H PRN PRN Reason: Pain, moderate (4-7) Pantoprazole Sodium (Protonix Ec Tab) 20 mg PO 0600 [facility] Last Admin: 08/01/17 06:04 Dose: 20 mg Potassium Phos/Sodium Phos (Neutra-Phos) 1 pkt PO TID [facility] Stop: 08/02/17 18:01 Last Admin: 08/01/17 14:28 Dose: 1 pkt - Labs Labs: 08/01/17 06:00 08/01/17 06:00 PT 12.7 Seconds (9.9-11.8) H 07/28/17 19:30 INR 1.18 (0.93-1.08) H 07/28/17 19:30 APTT 31.5 Seconds (23.7-30.8) H 07/28/17 19:30 Attending/Attestation - Attestation I have personally seen and examined this patient.: Yes I have fully participated in the care of the patient.: Yes I have reviewed all pertinent clinical information, including history, physical exam and plan: Yes Notes (Text): 08/01/17 16:12 Patient was seen and examined with medical social consultant. Agreed with resident assessment and plan. Patient is still having fever, etiology of fever is not cleat.He is feeling that his diarrhea is better.Levaquin has been added in addition to Vancomycin and Meropenem. Blood cultures are negative for any growth. Management plan was discussed in detail with patient Education was provided.
[2017-07-31] MEDS: Vancomycin 1gm in NS 250ml 1 GM/250 ML BAG IVPB SCH ×2 (12:02→23:12)
--- NOTE | 2017-07-31 13:09 | PN ---
DATE: 07/31/2017 SUBJECTIVE: The patient is in bed in no acute distress. PHYSICAL EXAMINATION: VITAL SIGNS: Temperature is 97, T-max is 100.6, blood pressure is 125/60, and respiratory rate 20. HEENT: Unremarkable. NECK: Supple. LUNGS: Decreased breath sounds. HEART: Normal S1 and S2. ABDOMEN: Soft. LABORATORY DATA: Reveals a white count of 9,000 and hemoglobin of 12. Chemistry today reveals the patient's BUN of 6, creatinine of 0.6, and procalcitonin is 3.2. Microbiology reveals the patient's blood cultures to be negative. Urine cultures to be negative and stool for C. diff, antigen, and toxin is negative. The patient had a CAT scan of the chest on 07/29/2017 and results are noted as questionable scarring versus density. His lungs are otherwise clear. The patient also had an unremarkable CAT scan of the abdomen and pelvis. 's note is reviewed. ASSESSMENT AND PLAN: This is a 61-year-old male originally from [facility] with systemic inflammatory response syndrome, benign prostatic hypertrophy, history of cataract, history of ulcerative colitis status post colectomy on vedolizumab, history of kidney stones on vancomycin and meropenem, Levaquin day #3 with negative cultures, negative imaging, elevated PCT, and negative CAT scan of the chest and abdomen. No clear cut reason. I suspect it is intraabdominal and although he is walking around. He has no abdominal pain on vancomycin, meropenem, and Levaquin. The fevers appears to be slowly responding. We will continue the present course and follow closely with you. He is still having chills. Bradley Craig MD
--- NOTE | 2017-07-31 16:06 | CP.PCM.PN ---
<Mariah Acuna - Last Filed: 07/31/17 16:06> Subjective - Date & Time of Evaluation Date of Evaluation: 07/31/17 Time of Evaluation: 10:45 - Subjective Subjective: seen and examined and the chart was reviewed earlier this morning, the patient was having breakfast he denies nausea, vomiting, or abdominal pain. However he did complain of having fever, Tmax of 100.0 F last night with severe chills and shakes. Frequency of BM is improving, still report loose bowel movement, no reports of overt GI bleed. Objective - Vital Signs/Intake and Output Vital Signs (last 24 hours): Temp Pulse Resp BP Pulse Ox 97.9 F 81 20 125/67 97 07/31/17 10:10 07/31/17 06:00 07/31/17 06:00 07/31/17 06:00 07/31/17 06:00 Intake and Output: 07/31/17 07/31/17 06:59 18:59 Intake Total 300 500 Output Total 900 Balance 300 -400 - Medications Medications: Current Medications Acetaminophen (Tylenol 325mg Tab) 650 mg PO Q6H PRN PRN Reason: Fever >100.4 F Last Admin: 07/31/17 09:10 Dose: 650 mg Docusate Sodium (Colace) 100 mg PO DAILY [facility] Last Admin: 07/31/17 09:11 Dose: Not Given Sodium Chloride (Sodium Chloride 0.9%) 1,000 mls @ 150 mls/hr IV .Q6H40M [facility] Last Admin: 07/30/17 15:36 Dose: 150 mls/hr Meropenem 1g/NS 100mL IVPB (Meropenem 1g/Ns 100ml Ivpb) 1 gm in 100 mls @ 100 mls/hr IVPB Q8 [facility] PRN Reason: Protocol Stop: 08/07/17 10:46 Last Admin: 07/31/17 13:11 Dose: 100 mls/hr Vancomycin HCl (Vancomycin 1gm) 1 gm in 250 mls @ 167 mls/hr IVPB Q12H [facility] PRN Reason: Protocol Stop: 08/07/17 10:46 Last Admin: 07/31/17 12:02 Dose: 167 mls/hr Levofloxacin/Dextrose (Levaquin 750mg) 750 mg in 150 mls @ 100 mls/hr IVPB DAILY [facility] Stop: 08/07/17 10:46 Last Admin: 07/31/17 09:11 Dose: 100 mls/hr Morphine Sulfate (Morphine) 2 mg IVP Q4H PRN PRN Reason: Pain, moderate (4-7) Pantoprazole Sodium (Protonix Ec Tab) 20 mg PO 0600 [facility] Potassium Phos/Sodium Phos (Neutra-Phos) 1 pkt PO TID [facility] Stop: 08/02/17 18:01 Last Admin: 07/31/17 13:11 Dose: 1 pkt - Labs Labs: 07/31/17 06:10 07/31/17 06:10 PT 12.7 Seconds (9.9-11.8) H 07/28/17 19:30 INR 1.18 (0.93-1.08) H 07/28/17 19:30 APTT 31.5 Seconds (23.7-30.8) H 07/28/17 19:30 - Constitutional Appears: No Acute Distress - Head Exam Head Exam: NORMOCEPHALIC - Eye Exam Eye Exam: Normal appearance. absent: Scleral icterus - ENT Exam ENT Exam: Mucous Membranes Moist - Neck Exam Neck Exam: Normal Inspection - Respiratory Exam Respiratory Exam: NORMAL BREATHING PATTERN. absent: Respiratory Distress - Cardiovascular Exam Cardiovascular Exam: +S1, +S2 - GI/Abdominal Exam GI & Abdominal Exam: Soft, Normal Bowel Sounds. absent: Guarding, Tenderness, Rebound - Extremities Exam Extremities Exam: Normal Capillary Refill. absent: Calf Tenderness, Pedal Edema - Neurological Exam Neurological Exam: Alert, Awake, Oriented x3 - Skin Skin Exam: Dry, Warm Assessment and Plan - Assessment and Plan (Free Text) Assessment: Assessment: History of Crohn's disease Abdominal pain, resolved Improved diarrhea likely gastroenteritis History of subtotal colectomy Fevers Status post CT scan chest reporting right middle lobe scarring, unlikely pneumonia Plan: Diet as tolerated Continue IV antibiotics on meropenem and Levaquin and vancomycin IV fluids Monitor electrolytes and replete as necessary Continue PPI DVT prophylaxis, SCDs ID FU Seen and discussed with Dr. Albarran <Rosa Albarran V - Last Filed: 07/31/17 23:09> Objective - Vital Signs/Intake and Output Vital Signs (last 24 hours): Temp Pulse Resp BP Pulse Ox 103.1 F H 81 20 125/67 97 07/31/17 17:11 07/31/17 06:00 07/31/17 06:00 07/31/17 06:00 07/31/17 06:00 Intake and Output: 07/31/17 08/01/17 18:59 06:59 Intake Total 500 120 Output Total 900 Balance -400 120 - Medications Medications: Current Medications Acetaminophen (Tylenol 325mg Tab) 650 mg PO Q6H PRN PRN Reason: Fever >100.4 F Last Admin: 07/31/17 17:11 Dose: 650 mg Docusate Sodium (Colace) 100 mg PO DAILY [facility] Last Admin: 07/31/17 09:11 Dose: Not Given Sodium Chloride (Sodium Chloride 0.9%) 1,000 mls @ 150 mls/hr IV .Q6H40M [facility] Last Admin: 07/31/17 17:12 Dose: 150 mls/hr Meropenem 1g/NS 100mL IVPB (Meropenem 1g/Ns 100ml Ivpb) 1 gm in 100 mls @ 100 mls/hr IVPB Q8 [facility] PRN Reason: Protocol Stop: 08/07/17 10:46 Last Admin: 07/31/17 21:36 Dose: 100 mls/hr Vancomycin HCl (Vancomycin 1gm) 1 gm in 250 mls @ 167 mls/hr IVPB Q12H [facility] PRN Reason: Protocol Stop: 08/07/17 10:46 Last Admin: 07/31/17 12:02 Dose: 167 mls/hr Levofloxacin/Dextrose (Levaquin 750mg) 750 mg in 150 mls @ 100 mls/hr IVPB DAILY [facility] Stop: 08/07/17 10:46 Last Admin: 07/31/17 09:11 Dose: 100 mls/hr Morphine Sulfate (Morphine) 2 mg IVP Q4H PRN PRN Reason: Pain, moderate (4-7) Pantoprazole Sodium (Protonix Ec Tab) 20 mg PO 0600 [facility] Potassium Phos/Sodium Phos (Neutra-Phos) 1 pkt PO TID [facility] Stop: 08/02/17 18:01 Last Admin: 07/31/17 17:12 Dose: 1 pkt - Labs Labs: 07/31/17 06:10 07/31/17 06:10 PT 12.7 Seconds (9.9-11.8) H 07/28/17 19:30 INR 1.18 (0.93-1.08) H 07/28/17 19:30 APTT 31.5 Seconds (23.7-30.8) H 07/28/17 19:30 Attending/Attestation - Attestation I have personally seen and examined this patient.: Yes I have fully participated in the care of the patient.: Yes I have reviewed all pertinent clinical information, including history, physical exam and plan: Yes Notes (Text): This is an addendum to GI progress report dictated by Mariah Acuna APN.The patient was seen and examined earlier. Medical records, lab studies, imagings were reviewed. Last 24 hours events reviewed. Agreed with the above treatment plan as outlined in Mariah Acuna APN's notes the with the addition of the following ppatient start a spiking fever from last night. Denies any abdominal pain. Abdomen soft no tenderness History of Crohn's disease on entyvio Acute onset of diarrhea abdominal pain clinically appears to be like gastroenteritis Concern is spiking fever in spite of patient being on antibiotics Would consider repeating the CT with po contrast with the by mouth contrast and iv 07/31/17 23:03 07/31/17 23:07
[2017-07-31] MEDS: Sodium Chloride 0.9% 1,000 ML IV SCH (17:12)
[2017-08-01] MEDS: Sodium Chloride 0.9% 1,000 ML IV SCH (03:00)
[2017-08-01] MEDS: Pantoprazole 20 mg EC Tab PO SCH (06:04)
[2017-08-01] MEDS: Meropenem 1g/NS 100mL IVPB 1 GM/100 ML PIGGYBACK IVPB SCH ×3 (06:04→22:02)
[2017-08-01 07:06] LABS: ALKALINE PHOSPHATASE 54 U/L (38-126); ALT/SGPT 46 U/L (7-56); AST/SGOT 46 U/L (17-59); BILIRUBIN,TOTAL 0.3 mg/dL (0.2-1.3); BLOOD UREA NITROGEN 8 mg/dL (7-21); CALCIUM 8.1 mg/dL (8.4-10.5); CARBON DIOXIDE 22 mmol/L (21-33); CHLORIDE 109 mmol/L (98-107); GFR AFRICAN-AMERICAN > 60; GLUCOSE,RANDOM 99 mg/dL (70-110); POTASSIUM 3.8 mmol/L (3.6-5.0); SODIUM 139 mmol/L (132-148); TOTAL PROTEIN 5.8 g/dL (5.8-8.3)
[2017-08-01 07:30] LABS: BASO # 0.03 K/mm3 (0.0-2.0); BASO % 0.5 % (0.0-3.0); EOS % 0.7 % (1.5-5.0); GRAN # 3.39 (1.4-6.5); HEMATOCRIT 34.1 % (42.0-52.0); LYMPH # 1.3 (1.2-3.4); LYMPH % 22.4 % (22.0-35.0); MEAN CELL VOLUME 81.2 fl (80.0-105.0); MEAN CORPUSCULAR HEMOGLOBIN 27.6 pg (25.0-35.0); MEAN PLATELET VOLUME 10.5 fl (7.0-11.0); MONO % 17.4 % (1.0-6.0); RED CELL DISTRIBUTION WIDTH 13.5 % (11.5-14.5); WHITE BLOOD COUNT 5.8 10^3/ul (4.5-11.0)
--- NOTE | 2017-08-01 08:41 | RAD ---
HISTORY: coughing and fever COMPARISON: 07/28/2017 FINDINGS: LUNGS: No active pulmonary disease. PLEURA: No significant pleural effusion identified, no pneumothorax apparent. CARDIOVASCULAR: Mild cardiomegaly OSSEOUS STRUCTURES: No significant abnormalities. VISUALIZED UPPER ABDOMEN: Normal. OTHER FINDINGS: Mild aortic tortuosity IMPRESSION: No active disease.
[2017-08-01] MEDS: Potassium & Sodium Phosphate PO SCH ×3 (09:30→18:39)
[2017-08-01] MEDS: levoFLOXacin 750 mg in D5W 750 MG/150 ML BAG IVPB SCH (09:30)
[2017-08-01] MEDS ORDERED: Barium Sulfate Susp 2.1% w/v, 2.0% w/w 450 mL Bottle PO ONE (10:21)
--- NOTE | 2017-08-01 11:24 | CP.PCM.PN ---
<Avis,Kovil V - Last Filed: 08/01/17 20:10> Objective - Vital Signs/Intake and Output Vital Signs (last 24 hours): Temp Pulse Resp BP Pulse Ox 99.5 F 62 20 106/66 98 08/01/17 16:44 08/01/17 16:44 08/01/17 16:44 08/01/17 16:44 08/01/17 16:44 Intake and Output: 08/01/17 08/02/17 18:59 06:59 Intake Total 960 Balance 960 - Medications Medications: Current Medications Acetaminophen (Tylenol 325mg Tab) 650 mg PO Q6H PRN PRN Reason: Fever >100.4 F Last Admin: 08/01/17 01:30 Dose: 650 mg Docusate Sodium (Colace) 100 mg PO DAILY [facility] Last Admin: 08/01/17 09:30 Dose: 100 mg Sodium Chloride (Sodium Chloride 0.9%) 1,000 mls @ 150 mls/hr IV .Q6H40M [facility] Last Admin: 08/01/17 03:00 Dose: 150 mls/hr Meropenem 1g/NS 100mL IVPB (Meropenem 1g/Ns 100ml Ivpb) 1 gm in 100 mls @ 100 mls/hr IVPB Q8 [facility] PRN Reason: Protocol Stop: 08/07/17 10:46 Last Admin: 08/01/17 14:28 Dose: 100 mls/hr Vancomycin HCl (Vancomycin 1gm) 1 gm in 250 mls @ 167 mls/hr IVPB Q12H [facility] PRN Reason: Protocol Stop: 08/07/17 10:46 Last Admin: 08/01/17 11:31 Dose: 167 mls/hr Levofloxacin/Dextrose (Levaquin 750mg) 750 mg in 150 mls @ 100 mls/hr IVPB DAILY [facility] Stop: 08/07/17 10:46 Last Admin: 08/01/17 09:30 Dose: 100 mls/hr Morphine Sulfate (Morphine) 2 mg IVP Q4H PRN PRN Reason: Pain, moderate (4-7) Pantoprazole Sodium (Protonix Ec Tab) 20 mg PO 0600 [facility] Last Admin: 08/01/17 06:04 Dose: 20 mg Potassium Phos/Sodium Phos (Neutra-Phos) 1 pkt PO TID [facility] Stop: 08/02/17 18:01 Last Admin: 08/01/17 18:39 Dose: Not Given - Labs Labs: 08/01/17 06:00 08/01/17 06:00 PT 12.7 Seconds (9.9-11.8) H 07/28/17 19:30 INR 1.18 (0.93-1.08) H 07/28/17 19:30 APTT 31.5 Seconds (23.7-30.8) H 07/28/17 19:30 Attending/Attestation - Attestation I have personally seen and examined this patient.: Yes I have fully participated in the care of the patient.: Yes I have reviewed all pertinent clinical information, including history, physical exam and plan: Yes Notes (Text): This is an addendum to GI progress report dictated by Mariah Acuna APN.The patient was seen and examined earlier. Medical records, lab studies, imagings were reviewed. Last 24 hours events reviewed. Agreed with the above treatment plan as outlined in Mariah Acuna APN's notes the with the addition of the following Feel slightly better today Abdomen soft no tenderness Rectal examination done by Mariah Acuna SHUTTLER findings noted Awaiting for CAT scan Continue antibiotics patient is off entyvio now. 08/01/17 20:10 <Mariah Acuna - Last Filed: 08/02/17 13:45> Subjective - Date & Time of Evaluation Date of Evaluation: 08/01/17 Time of Evaluation: 08:00 - Subjective Subjective: Seen and examined at the bedside this morning and the chart was reviewed. Patient still reports to have fever of Tmax of 103, patient complains of chills. No reports of nausea, vomiting, or abdominal pain remains to have his usual loose BMs but no increase in frequency. No reports of blood per rectum. Objective - Vital Signs/Intake and Output Vital Signs (last 24 hours): Temp Pulse Resp BP Pulse Ox 97.6 F 78 20 118/83 98 08/01/17 06:00 08/01/17 06:00 08/01/17 06:00 08/01/17 06:00 08/01/17 06:00 Intake and Output: 08/01/17 08/01/17 06:59 18:59 Intake Total 1920 120 Balance 1920 120 - Medications Medications: Current Medications Acetaminophen (Tylenol 325mg Tab) 650 mg PO Q6H PRN PRN Reason: Fever >100.4 F Last Admin: 08/01/17 01:30 Dose: 650 mg Docusate Sodium (Colace) 100 mg PO DAILY [facility] Last Admin: 08/01/17 09:30 Dose: 100 mg Sodium Chloride (Sodium Chloride 0.9%) 1,000 mls @ 150 mls/hr IV .Q6H40M [facility] Last Admin: 08/01/17 03:00 Dose: 150 mls/hr Meropenem 1g/NS 100mL IVPB (Meropenem 1g/Ns 100ml Ivpb) 1 gm in 100 mls @ 100 mls/hr IVPB Q8 [facility] PRN Reason: Protocol Stop: 08/07/17 10:46 Last Admin: 08/01/17 06:04 Dose: 100 mls/hr Vancomycin HCl (Vancomycin 1gm) 1 gm in 250 mls @ 167 mls/hr IVPB Q12H [facility] PRN Reason: Protocol Stop: 08/07/17 10:46 Last Admin: 07/31/17 23:12 Dose: 167 mls/hr Levofloxacin/Dextrose (Levaquin 750mg) 750 mg in 150 mls @ 100 mls/hr IVPB DAILY [facility] Stop: 08/07/17 10:46 Last Admin: 08/01/17 09:30 Dose: 100 mls/hr Morphine Sulfate (Morphine) 2 mg IVP Q4H PRN PRN Reason: Pain, moderate (4-7) Pantoprazole Sodium (Protonix Ec Tab) 20 mg PO 0600 [facility] Last Admin: 08/01/17 06:04 Dose: 20 mg Potassium Phos/Sodium Phos (Neutra-Phos) 1 pkt PO TID [facility] Stop: 08/02/17 18:01 Last Admin: 08/01/17 09:30 Dose: 1 pkt - Labs Labs: 08/01/17 06:00 08/01/17 06:00 PT 12.7 Seconds (9.9-11.8) H 07/28/17 19:30 INR 1.18 (0.93-1.08) H 07/28/17 19:30 APTT 31.5 Seconds (23.7-30.8) H 07/28/17 19:30 - Constitutional Appears: No Acute Distress - Head Exam Head Exam: NORMOCEPHALIC - Eye Exam Eye Exam: Normal appearance. absent: Scleral icterus - ENT Exam ENT Exam: Mucous Membranes Moist - Neck Exam Neck Exam: Normal Inspection - Respiratory Exam Respiratory Exam: Clear to Ausculation Bilateral, NORMAL BREATHING PATTERN. absent: Respiratory Distress - Cardiovascular Exam Cardiovascular Exam: +S1, +S2 - GI/Abdominal Exam GI & Abdominal Exam: Soft, Normal Bowel Sounds. absent: Guarding, Tenderness, Rebound - Rectal Exam Rectal Exam: NORMAL INSPECTION - Extremities Exam Extremities Exam: Normal Capillary Refill. absent: Calf Tenderness, Pedal Edema - Neurological Exam Neurological Exam: Alert, Awake, Oriented x3 - Skin Skin Exam: Dry, Warm Assessment and Plan - Assessment and Plan (Free Text) Assessment: Assessment: History of Crohn's disease Abdominal pain, resolved Improved diarrhea likely gastroenteritis History of subtotal colectomy Fevers, unknown etiology Status post CT scan chest reporting right middle lobe scarring, unlikely pneumonia Plan: request for ct scan chest/A&P w/IV and oral contrast r/o abscess Diet as tolerated Continue IV antibiotics on meropenem and Levaquin and vancomycin IV fluids Monitor electrolytes and replete as necessary Continue PPI DVT prophylaxis, SCDs ID FU Seen and discussed with Dr. Albarran
[2017-08-01] MEDS: Vancomycin 1gm in NS 250ml 1 GM/250 ML BAG IVPB SCH (11:31)
--- NOTE | 2017-08-01 13:22 | CP.PCM.PN ---
<Edd Beard - Last Filed: 08/01/17 13:26> Subjective - Date & Time of Evaluation Date of Evaluation: 08/01/17 Time of Evaluation: 13:19 - Subjective Subjective: Pt seen and examined at bedside. Pt with no acute complaints at this time. Pt developed a fever of 103 F last night, requiring tylenol. Pt is still complaining of occasional chills. BM's are at baseline. Denies CP, SOB, N/V/D. Objective - Vital Signs/Intake and Output Vital Signs (last 24 hours): Temp Pulse Resp BP Pulse Ox 97.6 F 78 20 118/83 98 08/01/17 06:00 08/01/17 06:00 08/01/17 06:00 08/01/17 06:00 08/01/17 06:00 Intake and Output: 08/01/17 08/01/17 06:59 18:59 Intake Total 1920 120 Balance 1920 120 - Medications Medications: Current Medications Acetaminophen (Tylenol 325mg Tab) 650 mg PO Q6H PRN PRN Reason: Fever >100.4 F Last Admin: 08/01/17 01:30 Dose: 650 mg Docusate Sodium (Colace) 100 mg PO DAILY [facility] Last Admin: 08/01/17 09:30 Dose: 100 mg Sodium Chloride (Sodium Chloride 0.9%) 1,000 mls @ 150 mls/hr IV .Q6H40M [facility] Last Admin: 08/01/17 03:00 Dose: 150 mls/hr Meropenem 1g/NS 100mL IVPB (Meropenem 1g/Ns 100ml Ivpb) 1 gm in 100 mls @ 100 mls/hr IVPB Q8 [facility] PRN Reason: Protocol Stop: 08/07/17 10:46 Last Admin: 08/01/17 06:04 Dose: 100 mls/hr Vancomycin HCl (Vancomycin 1gm) 1 gm in 250 mls @ 167 mls/hr IVPB Q12H [facility] PRN Reason: Protocol Stop: 08/07/17 10:46 Last Admin: 08/01/17 11:31 Dose: 167 mls/hr Levofloxacin/Dextrose (Levaquin 750mg) 750 mg in 150 mls @ 100 mls/hr IVPB DAILY [facility] Stop: 08/07/17 10:46 Last Admin: 08/01/17 09:30 Dose: 100 mls/hr Morphine Sulfate (Morphine) 2 mg IVP Q4H PRN PRN Reason: Pain, moderate (4-7) Pantoprazole Sodium (Protonix Ec Tab) 20 mg PO 0600 [facility] Last Admin: 08/01/17 06:04 Dose: 20 mg Potassium Phos/Sodium Phos (Neutra-Phos) 1 pkt PO TID [facility] Stop: 08/02/17 18:01 Last Admin: 08/01/17 09:30 Dose: 1 pkt - Labs Labs: 08/01/17 06:00 08/01/17 06:00 PT 12.7 Seconds (9.9-11.8) H 07/28/17 19:30 INR 1.18 (0.93-1.08) H 07/28/17 19:30 APTT 31.5 Seconds (23.7-30.8) H 07/28/17 19:30 - Constitutional Appears: Non-toxic, No Acute Distress - Head Exam Head Exam: ATRAUMATIC, NORMAL INSPECTION, NORMOCEPHALIC - ENT Exam ENT Exam: Mucous Membranes Moist, Normal Exam - Respiratory Exam Respiratory Exam: Clear to Ausculation Bilateral, NORMAL BREATHING PATTERN. absent: Rales, Rhonchi, Wheezes - Cardiovascular Exam Cardiovascular Exam: RRR, +S1, +S2 - GI/Abdominal Exam GI & Abdominal Exam: Soft, Normal Bowel Sounds. absent: Tenderness - Extremities Exam Extremities Exam: Normal Inspection. absent: Calf Tenderness, Pedal Edema - Neurological Exam Neurological Exam: Alert, Awake, Oriented x3 - Psychiatric Exam Psychiatric exam: Normal Affect, Normal Mood - Skin Skin Exam: Intact, Normal Color, Warm Assessment and Plan - Assessment and Plan (Free Text) Plan: 61 y/o M with PMH of BPH, Crohn's disease, GIB, gastric ulcer, and iron deficiency anemia presenting with abdominal pain. Pain is resolved at this time and pt develops fevers nightly. Pt is being continued on abx therapy. Pt will have CT scan of abdomen/pelvis with IV and oral contrast to rule out abscess. Repeat blood cultures have been negative so far. C. diff stool testing negative. Patient is being followed by ID and GI. Abdominal pain Resolved at this time Repeat CT abdomen/Pelvis with IV and Oral contrast Previous Abdomen/Pelvis CT with oral contrast demonstrates extensive, subtotal colectomy GI following, Dr. Albarran [facility] acquired pneumonia CT chest demonstrating right middle lobe scarring, unlikely pneumonia Legionella negative Procalcitonin initially elevated Repeat blood culture negative at 24 hours On Vancomycin, Merrem, and Levaquin ID following, Dr. Shafer Dehydration NS @ 150 Continue monitor electrolytes, replenish as needed PPX Protonix SCDs Bhagwandin, PGY-2 <Kayce Hernandez - Last Filed: 08/01/17 16:19> Objective - Vital Signs/Intake and Output Vital Signs (last 24 hours): Temp Pulse Resp BP Pulse Ox 97.6 F 78 20 118/83 98 08/01/17 06:00 08/01/17 06:00 08/01/17 06:00 08/01/17 06:00 08/01/17 06:00 Intake and Output: 08/01/17 08/01/17 06:59 18:59 Intake Total 1920 960 Balance 1920 960 - Medications Medications: Current Medications Acetaminophen (Tylenol 325mg Tab) 650 mg PO Q6H PRN PRN Reason: Fever >100.4 F Last Admin: 08/01/17 01:30 Dose: 650 mg Docusate Sodium (Colace) 100 mg PO DAILY [facility] Last Admin: 08/01/17 09:30 Dose: 100 mg Sodium Chloride (Sodium Chloride 0.9%) 1,000 mls @ 150 mls/hr IV .Q6H40M [facility] Last Admin: 08/01/17 03:00 Dose: 150 mls/hr Meropenem 1g/NS 100mL IVPB (Meropenem 1g/Ns 100ml Ivpb) 1 gm in 100 mls @ 100 mls/hr IVPB Q8 [facility] PRN Reason: Protocol Stop: 08/07/17 10:46 Last Admin: 08/01/17 14:28 Dose: 100 mls/hr Vancomycin HCl (Vancomycin 1gm) 1 gm in 250 mls @ 167 mls/hr IVPB Q12H [facility] PRN Reason: Protocol Stop: 08/07/17 10:46 Last Admin: 08/01/17 11:31 Dose: 167 mls/hr Levofloxacin/Dextrose (Levaquin 750mg) 750 mg in 150 mls @ 100 mls/hr IVPB DAILY [facility] Stop: 08/07/17 10:46 Last Admin: 08/01/17 09:30 Dose: 100 mls/hr Morphine Sulfate (Morphine) 2 mg IVP Q4H PRN PRN Reason: Pain, moderate (4-7) Pantoprazole Sodium (Protonix Ec Tab) 20 mg PO 0600 [facility] Last Admin: 08/01/17 06:04 Dose: 20 mg Potassium Phos/Sodium Phos (Neutra-Phos) 1 pkt PO TID [facility] Stop: 08/02/17 18:01 Last Admin: 08/01/17 14:28 Dose: 1 pkt - Labs Labs: 08/01/17 06:00 08/01/17 06:00 PT 12.7 Seconds (9.9-11.8) H 07/28/17 19:30 INR 1.18 (0.93-1.08) H 07/28/17 19:30 APTT 31.5 Seconds (23.7-30.8) H 07/28/17 19:30 Attending/Attestation - Attestation I have personally seen and examined this patient.: Yes I have fully participated in the care of the patient.: Yes I have reviewed all pertinent clinical information, including history, physical exam and plan: Yes Notes (Text): 08/01/17 16:16 Patient was seen and examined with medical claims manager. Agreed with resident assessment and plan. Patient is feeling better, but still febrile.His diarrhea is at his base line.We will get CT scan of abdomen and Pelvis to rule abdominal abscess. Management plan was discussed in detail with patient Education was provided.
[2017-08-01] MEDS ORDERED: Iohexol 350 MG/100 ML VIAL ONE (17:52)
--- NOTE | 2017-08-01 18:58 | CT ---
PROCEDURE: CT Chest, Abdomen and Pelvis with intravenous contrast HISTORY: fevers, r/o abcess h/o Crohns disease COMPARISON: Comparison is made to the previous study 07/29/2017 TECHNIQUE: IV dose administered: 96 mL of Omnipaque 350. Axial and reformatted coronal and sagittal CT images of the chest abdomen and pelvis were obtained after IV contrast administration. Radiation dose: Total exam DLP = 837.6 mGy-cm. This CT exam was performed using one or more of the following dose reduction techniques: Automated exposure control, adjustment of the mA and/or kV according to patient size, and/or use of iterative reconstruction technique. FINDINGS: CT CHEST WITH CONTRAST: LUNGS: There is a small airspace opacity at the medial aspect of the right middle lobe image 88 may represent a pneumonia or less likely atelectasis. Partial atelectasis of the right lower lobe is noted. MEDIASTINUM: Unremarkable. Normal caliber aorta and pulmonary arterial trunk. No aortic dissection. The heart is mildly enlarged. LYMPH NODES: Unremarkable. PLEURA: There is a small right pleural effusion and trace left pleural effusion noted. BONES: Unremarkable. OTHER FINDINGS: None. CT ABDOMEN AND PELVIS: LIVER: Again seen is small low-attenuation lesion at the right liver lobe may represent benign cyst. GALLBLADDER AND BILE DUCTS: Gallstone is again seen without evidence of cholecystitis. PANCREAS: Unremarkable. No gross lesion or ductal dilatation. SPLEEN: Unremarkable. ADRENALS: Mild nodular enlargement of the left adrenal gland is noted again. KIDNEYS AND URETERS: Unremarkable. No hydronephrosis. No solid mass. VASCULATURE: Unremarkable. No aortic aneurysm. BOWEL: Again seen are postsurgical changes suggestive of prior partial colectomy. . No obstruction. No gross mural thickening. APPENDIX: No evidence of appendicitis. PERITONEUM: Interval appearance of trace free fluid at the right lower abdomen since the previous exam of uncertain etiology. LYMPH NODES: Unremarkable. No enlarged lymph nodes. BLADDER: He the urinary bladder is collapsed therefore cannot be evaluated. Possible diffuse bladder wall thickening. REPRODUCTIVE: [id number] enlarged prostate. BONES: No acute fracture. OTHER FINDINGS: None. IMPRESSION: No evidence of abscess formation in the chest abdomen and pelvis. Small airspace opacity at the right middle lobe may represent pneumonia or less likely atelectasis. Small right and trace left pleural effusions. Mild cardiomegaly. Gallstone without evidence of acute cholecystitis. Trace free fluid at the right lower abdomen new compared to the previous exam of uncertain etiology. Otherwise no significant interval change.
[2017-08-02] MEDS: Sodium Chloride 0.9% 1,000 ML IV SCH (04:03)
[2017-08-02] MEDS: Meropenem 1g/NS 100mL IVPB 1 GM/100 ML PIGGYBACK IVPB SCH ×3 (06:00→21:19)
[2017-08-02] MEDS: Pantoprazole 20 mg EC Tab PO SCH (06:05)
[2017-08-02 07:09] LABS: BASO # 0.07 K/mm3 (0.0-2.0); BASO % 0.8 % (0.0-3.0); EOS # 0.1 (0.0-0.7); EOS % 1.1 % (1.5-5.0); GRAN # 5.77 (1.4-6.5); HEMATOCRIT 36.3 % (42.0-52.0); LYMPH # 1.7 (1.2-3.4); LYMPH % 18.4 % (22.0-35.0); MEAN CELL VOLUME 80.3 fl (80.0-105.0); MEAN CORPUSCULAR HEMOGLOBIN 27.9 pg (25.0-35.0); MEAN CORPUSCULAR HGB CONC 34.7 g/dl (31.0-37.0); MEAN PLATELET VOLUME 9.9 fl (7.0-11.0); MONO # 1.5 (0.1-0.6); MONO % 16.7 % (1.0-6.0); RED CELL DISTRIBUTION WIDTH 13.5 % (11.5-14.5); WHITE BLOOD COUNT 9.2 10^3/ul (4.5-11.0)
[2017-08-02 07:23] LABS: ALB/GLOB RATIO 1.1 (1.1-1.8); ALKALINE PHOSPHATASE 58 U/L (38-126); ALT/SGPT 80 U/L (7-56); AST/SGOT 95 U/L (17-59); BILIRUBIN,TOTAL 0.5 mg/dL (0.2-1.3); BLOOD UREA NITROGEN 8 mg/dL (7-21); CALCIUM 8.9 mg/dL (8.4-10.5); CARBON DIOXIDE 24 mmol/L (21-33); CHLORIDE 107 mmol/L (98-107); GFR AFRICAN-AMERICAN > 60; GLUCOSE,RANDOM 99 mg/dL (70-110); POTASSIUM 3.9 mmol/L (3.6-5.0); SODIUM 140 mmol/L (132-148); TOTAL PROTEIN 6.7 g/dL (5.8-8.3)
[2017-08-02] MEDS: Potassium & Sodium Phosphate PO SCH ×3 (10:06→19:35)
[2017-08-02] MEDS ORDERED: Sodium Chloride 0.9% 1,000 ML IV SCH (11:49)
--- NOTE | 2017-08-02 12:37 | PN ---
DATE: 08/01/2017 SUBJECTIVE: The patient is in bed in no acute distress. The patient was seen earlier this morning and appears to be comfortable, continues to have intermittent fever. PHYSICAL EXAMINATION: VITAL SIGNS: He did have a temperature of 103 this morning with a T-max of 103.1, blood pressure is 106/66, respiratory rate of 20, heart rate of 62. HEENT: Unremarkable. NECK: Supple. LUNGS: Decreased breath sounds. HEART: Normal S1 and S2. ABDOMEN: Soft and nontender. No rebound. No guarding. No masses. Completely benign abdomen on exam. On presentation, white count is 5.8, hemoglobin 11, platelets of 144. Sed rate is 30. Coagulation is noted and blood gases are noted. BUN is 8 and creatinine 0.9 and procalcitonin was 1.35. The urinalysis is noted. Unremarkable factor X. Urine for Legionella pneumonia is negative. Microbiology reveals the blood cultures are negative. Urine cultures are negative. Stool for Salmonella-Shigella is also negative. Stool C. diff antigen and toxin is negative. Another urine culture is negative. Initial blood cultures are negative with no growth at days. The patient also had CAT scan of the chest and CAT scan of the abdomen repeated today with IV and p.o. contrast. The CAT scan of the chest is noted to have small right pleural effusion, trace left pleural effusion. There is a small airspace opacity in the medial aspect of right middle lobe, represents pneumonia, less likely to be atelectasis. The liver has small attenuation lesion at the right liver lobe, may represent a benign cyst. The gallbladder is unremarkable. Pancreas is unremarkable. Spleen is unremarkable. Review of orders reveals the patient to be on Levaquin, meropenem and vancomycin. Dr. Kayce Hernandez's progress note is reviewed and appreciated. ASSESSMENT AND PLAN: A 61-year-old male originally from [facility] with systemic inflammatory response syndrome with benign prostatic hypertrophy, history of cataract, history of ulcerative colitis status post colectomy, on vedolizumab; history of kidney stones, continued day #4 vancomycin, meropenem and Levaquin with cultures negative. Repeat CAT scan has questionable infiltrate. We will discontinue the vancomycin and the IV Levaquin and continue with cefepime for now. We will add doxycycline p.o. Bacterial infection should have responded with antibiotic regimen. The patient states he had a tuberculosis workup before his medications started for the ulcerative colitis. We will continue to follow the fever curve. We will also order a QuantiFERON. He does not appear toxic. His white count has responded; however, his fevers persist. He does have an elevated procalcitonin colitis, significance of that is unclear. We will follow with you. We will also order a QuantiFERON, although I am certain he had a QuantiFERON. He states that he had a tuberculosis workup prior to the vedolizumab initiation. He is immunocompromized. We will continue the present course with changes as stated. Bradley Craig MD
--- NOTE | 2017-08-02 13:39 | CP.PCM.PN ---
<Joel Davis - Last Filed: 08/02/17 13:46> Subjective - Date & Time of Evaluation Date of Evaluation: 08/02/17 Time of Evaluation: 09:45 - Subjective Subjective: Medicine Note Pt S&E at bedside this AM. Fever overnight Tm: 102.7. Fever has resolved this AM. Pt still complaining of chills at night. Diarrhea has resolved. Denies Abdominal pain N/V/REED, numbness tingling in extremities. Objective - Vital Signs/Intake and Output Vital Signs (last 24 hours): Temp Pulse Resp BP Pulse Ox 102.5 F H 71 20 135/83 95 08/02/17 10:17 08/02/17 06:00 08/02/17 06:00 08/02/17 06:00 08/02/17 06:00 Intake and Output: 08/02/17 08/02/17 06:59 18:59 Intake Total 1149 Output Total 1200 Balance -51 - Medications Medications: Current Medications Acetaminophen (Tylenol 325mg Tab) 650 mg PO Q6H PRN PRN Reason: Fever >100.4 F Last Admin: 08/02/17 10:07 Dose: 650 mg Docusate Sodium (Colace) 100 mg PO DAILY [facility] Last Admin: 08/02/17 10:07 Dose: 100 mg Doxycycline Hyclate (Doryx) 100 mg PO Q12 KRYS PRN Reason: Protocol Stop: 08/10/17 22:01 Last Admin: 08/02/17 10:06 Dose: 100 mg Meropenem 1g/NS 100mL IVPB (Meropenem 1g/Ns 100ml Ivpb) 1 gm in 100 mls @ 100 mls/hr IVPB Q8 KRYS PRN Reason: Protocol Stop: 08/07/17 10:46 Last Admin: 08/01/17 22:02 Dose: 100 mls/hr Sodium Chloride (Sodium Chloride 0.9%) 1,000 mls @ 50 mls/hr IV .Q20H [facility] Last Admin: 08/02/17 12:54 Dose: 50 mls/hr Pantoprazole Sodium (Protonix Ec Tab) 20 mg PO 0600 [facility] Last Admin: 08/02/17 06:05 Dose: 20 mg Potassium Phos/Sodium Phos (Neutra-Phos) 1 pkt PO TID KRYS Stop: 08/02/17 18:01 Last Admin: 08/02/17 10:06 Dose: 1 pkt - Labs Labs: 08/02/17 06:47 08/02/17 06:47 PT 12.7 Seconds (9.9-11.8) H 07/28/17 19:30 INR 1.18 (0.93-1.08) H 07/28/17 19:30 APTT 31.5 Seconds (23.7-30.8) H 07/28/17 19:30 - Constitutional Appears: Non-toxic, No Acute Distress - Head Exam Head Exam: ATRAUMATIC - Eye Exam Eye Exam: EOMI. absent: Scleral icterus - ENT Exam ENT Exam: Mucous Membranes Moist - Respiratory Exam Respiratory Exam: Wheezes, NORMAL BREATHING PATTERN. absent: Accessory Muscle Use, Respiratory Distress - Cardiovascular Exam Cardiovascular Exam: +S1, +S2. absent: Bradycardia, Tachycardia - GI/Abdominal Exam GI & Abdominal Exam: Soft, Normal Bowel Sounds. absent: Distended, Rigid, Tenderness - Extremities Exam Extremities Exam: Normal Inspection. absent: Calf Tenderness - Neurological Exam Neurological Exam: Alert, Awake, Oriented x3 - Psychiatric Exam Psychiatric exam: Normal Affect - Skin Skin Exam: Normal Color Assessment and Plan - Assessment and Plan (Free Text) Assessment: 61 y/o M with PMH of BPH, Crohn's disease, GIB, gastric ulcer, and iron deficiency anemia presenting with abdominal pain. Pain is resolved at this time and pt develops fevers nightly. Pt is being continued on abx therapy. Pt will have CT scan of abdomen/pelvis with IV and oral contrast to rule out abscess. Repeat blood cultures have been negative so far. C. diff stool testing negative. Patient is being followed by ID and GI. Abdominal pain ABD pain and dirrhea resolved at this time Repeat CT abdomen/Pelvis with IV and Oral contrast- No evidence of abscess. slight increased fluid collection at the right lower abdomen Previous Abdomen/Pelvis CT with oral contrast demonstrates extensive, subtotal colectomy R/O Healthcare acquired pneumonia CT chest demonstrating right middle lobe scarring, unlikely pneumonia Legionella negative [place] Procalcitonin initially elevated, repeat Procal tomorrow Repeat blood culture negative at 24 hours On Merrem Doxy ID following, Dr. Shafer NS @ 50- tolerating current diet Continue monitor electrolytes, replenish as needed Leukocytosis resolved PPX Protonix SCDs will continue another day of antibiotics. Joel Davis PGY1 <Kayce Hernandez - Last Filed: 08/02/17 14:15> Objective - Vital Signs/Intake and Output Vital Signs (last 24 hours): Temp Pulse Resp BP Pulse Ox 102.5 F H 71 20 135/83 95 08/02/17 10:17 08/02/17 06:00 08/02/17 06:00 08/02/17 06:00 08/02/17 06:00 Intake and Output: 08/02/17 08/02/17 06:59 18:59 Intake Total 1149 Output Total 1200 Balance -51 - Medications Medications: Current Medications Acetaminophen (Tylenol 325mg Tab) 650 mg PO Q6H PRN PRN Reason: Fever >100.4 F Last Admin: 08/02/17 10:07 Dose: 650 mg Docusate Sodium (Colace) 100 mg PO DAILY [facility] Last Admin: 08/02/17 10:07 Dose: 100 mg Doxycycline Hyclate (Doryx) 100 mg PO Q12 [facility] PRN Reason: Protocol Stop: 08/10/17 22:01 Last Admin: 08/02/17 10:06 Dose: 100 mg Meropenem 1g/NS 100mL IVPB (Meropenem 1g/Ns 100ml Ivpb) 1 gm in 100 mls @ 100 mls/hr IVPB Q8 [facility] PRN Reason: Protocol Stop: 08/07/17 10:46 Last Admin: 08/01/17 22:02 Dose: 100 mls/hr Sodium Chloride (Sodium Chloride 0.9%) 1,000 mls @ 50 mls/hr IV .Q20H [facility] Last Admin: 08/02/17 12:54 Dose: 50 mls/hr Pantoprazole Sodium (Protonix Ec Tab) 20 mg PO 0600 [facility] Last Admin: 08/02/17 06:05 Dose: 20 mg Potassium Phos/Sodium Phos (Neutra-Phos) 1 pkt PO TID [facility] Stop: 08/02/17 18:01 Last Admin: 08/02/17 10:06 Dose: 1 pkt - Labs Labs: 08/02/17 06:47 08/02/17 06:47 PT 12.7 Seconds (9.9-11.8) H 07/28/17 19:30 INR 1.18 (0.93-1.08) H 07/28/17 19:30 APTT 31.5 Seconds (23.7-30.8) H 07/28/17 19:30 Attending/Attestation - Attestation I have personally seen and examined this patient.: Yes I have fully participated in the care of the patient.: Yes I have reviewed all pertinent clinical information, including history, physical exam and plan: Yes Notes (Text): 08/02/17 14:12 Patient was seen and examined with medical data analyst. Agreed with resident assessment and plan. Patient is still febrile,CT Scan of chest ,abdomen and Pelvis was negative for any abscess, Case was discussed with GI, no anal abscess as per GI. Patient is clinically better, Procalcitonin is coming down, Leukocytosis has resolved. Case was discussed with ID, Plan for MRI of liver to rule out any abscess and for further evaluation of liver lesions.. Management plan was discussed in detail with patient Education was provided.
--- NOTE | 2017-08-02 13:48 | CP.PCM.PN ---
<Mariah Acuna - Last Filed: 08/02/17 13:47> Subjective - Date & Time of Evaluation Date of Evaluation: 08/02/17 Time of Evaluation: 09:55 - Subjective Subjective: Seen and examined at the bedside earlier today, the chart was reviewed, no acute overnight events reported. Tmax 102. HAs chills. No distress, tolerating oral intake. Ct scan reviewed, [facility], findings on chest ct may represent Pnuemonia, A&P: small lesion in the right lobe of liver, gallstone, pelvic fluid, no abcess. Objective - Vital Signs/Intake and Output Vital Signs (last 24 hours): Temp Pulse Resp BP Pulse Ox 102.5 F H 71 20 135/83 95 08/02/17 10:17 08/02/17 06:00 08/02/17 06:00 08/02/17 06:00 08/02/17 06:00 Intake and Output: 08/02/17 08/02/17 06:59 18:59 Intake Total 1149 Output Total 1200 Balance -51 - Medications Medications: Current Medications Acetaminophen (Tylenol 325mg Tab) 650 mg PO Q6H PRN PRN Reason: Fever >100.4 F Last Admin: 08/02/17 10:07 Dose: 650 mg Docusate Sodium (Colace) 100 mg PO DAILY [facility] Last Admin: 08/02/17 10:07 Dose: 100 mg Doxycycline Hyclate (Doryx) 100 mg PO Q12 [facility] PRN Reason: Protocol Stop: 08/10/17 22:01 Last Admin: 08/02/17 10:06 Dose: 100 mg Meropenem 1g/NS 100mL IVPB (Meropenem 1g/Ns 100ml Ivpb) 1 gm in 100 mls @ 100 mls/hr IVPB Q8 [facility] PRN Reason: Protocol Stop: 08/07/17 10:46 Last Admin: 08/01/17 22:02 Dose: 100 mls/hr Sodium Chloride (Sodium Chloride 0.9%) 1,000 mls @ 50 mls/hr IV .Q20H [facility] Last Admin: 08/02/17 12:54 Dose: 50 mls/hr Pantoprazole Sodium (Protonix Ec Tab) 20 mg PO 0600 [facility] Last Admin: 08/02/17 06:05 Dose: 20 mg Potassium Phos/Sodium Phos (Neutra-Phos) 1 pkt PO TID [facility] Stop: 08/02/17 18:01 Last Admin: 08/02/17 10:06 Dose: 1 pkt - Labs Labs: 08/02/17 06:47 08/02/17 06:47 PT 12.7 Seconds (9.9-11.8) H 07/28/17 19:30 INR 1.18 (0.93-1.08) H 07/28/17 19:30 APTT 31.5 Seconds (23.7-30.8) H 07/28/17 19:30 - Constitutional Appears: No Acute Distress - Head Exam Head Exam: NORMOCEPHALIC - Eye Exam Eye Exam: Normal appearance. absent: Scleral icterus - ENT Exam ENT Exam: Mucous Membranes Moist - Neck Exam Neck Exam: Normal Inspection - Respiratory Exam Respiratory Exam: NORMAL BREATHING PATTERN. absent: Respiratory Distress - Cardiovascular Exam Cardiovascular Exam: +S1, +S2 - GI/Abdominal Exam GI & Abdominal Exam: Soft, Normal Bowel Sounds. absent: Guarding, Tenderness, Rebound - Extremities Exam Extremities Exam: absent: Calf Tenderness, Normal Capillary Refill, Pedal Edema - Neurological Exam Neurological Exam: Alert, Awake, Oriented x3 - Skin Skin Exam: Dry, Warm Assessment and Plan - Assessment and Plan (Free Text) Assessment: Assessment: History of Crohn's disease Abdominal pain, resolved Improved diarrhea likely gastroenteritis Mild elevation of LFT, ? medication induced History of subtotal colectomy Fevers, unknown etiology, s/p Ct scan reviewed, see [facility] for full report, findings on chest ct may represent Pnuemonia, A&P: small lesion in the right lobe of liver, gallstone, pelvic fluid, no abcess. Plan: request abdominal US hepatitis panel Diet as tolerated Continue IV antibiotics on meropenem and Levaquin and vancomycin IV fluids Monitor electrolytes and replete as necessary Continue PPI DVT prophylaxis, SCDs ID GILBERTO Davis pending discuss w/ medical team. Seen and discussed with Dr. Albarran <Rosa Albarran V - Last Filed: 08/02/17 22:10> Objective - Vital Signs/Intake and Output Vital Signs (last 24 hours): Temp Pulse Resp BP Pulse Ox 103 F H 54 L 20 120/62 100 08/02/17 20:12 08/02/17 17:42 08/02/17 17:42 08/02/17 17:42 08/02/17 17:42 Intake and Output: 08/02/17 08/03/17 18:59 06:59 Intake Total 1300 Balance 1300 - Medications Medications: Current Medications Acetaminophen (Tylenol 325mg Tab) 650 mg PO Q6H PRN PRN Reason: Fever >100.4 F Last Admin: 08/02/17 20:12 Dose: 650 mg Docusate Sodium (Colace) 100 mg PO DAILY [facility] Last Admin: 08/02/17 10:07 Dose: 100 mg Doxycycline Hyclate (Doryx) 100 mg PO Q12 [facility] PRN Reason: Protocol Stop: 08/10/17 22:01 Last Admin: 08/02/17 21:18 Dose: 100 mg Meropenem 1g/NS 100mL IVPB (Meropenem 1g/Ns 100ml Ivpb) 1 gm in 100 mls @ 100 mls/hr IVPB Q8 [facility] PRN Reason: Protocol Stop: 08/07/17 10:46 Last Admin: 08/02/17 21:19 Dose: 100 mls/hr Sodium Chloride (Sodium Chloride 0.9%) 1,000 mls @ 50 mls/hr IV .Q20H [facility] Last Admin: 08/02/17 12:54 Dose: 50 mls/hr Pantoprazole Sodium (Protonix Ec Tab) 20 mg PO 0600 [facility] Last Admin: 08/02/17 06:05 Dose: 20 mg - Labs Labs: 08/02/17 06:47 08/02/17 06:47 PT 12.7 Seconds (9.9-11.8) H 07/28/17 19:30 INR 1.18 (0.93-1.08) H 07/28/17 19:30 APTT 31.5 Seconds (23.7-30.8) H 07/28/17 19:30 Attending/Attestation - Attestation I have personally seen and examined this patient.: No I have fully participated in the care of the patient.: No I have reviewed all pertinent clinical information, including history, physical exam and plan: Yes Notes (Text): This is an addendum to GI progress report dictated by Mariah Acuna APN.The patient was seen and examined earlier. Medical records, lab studies, imagings were reviewed. Last 24 hours events reviewed. Agreed with the above treatment plan as outlined in Mariah Acuna APN's notes the with the addition of the following the patient is still spiking temperature CT scan was reviewedon examination abdomen soft tenderness tthe small hypodense dense lesion noticed in the right lobe was present to the scan done in the past. CT was compared to the previous CAT scan continue the antibiotics as per ID 08/02/17 21:40
--- NOTE | 2017-08-02 17:41 | PN ---
DATE: 08/02/2017 SUBJECTIVE: The patient is in bed. He is nontoxic. He is still having fevers and chills. PHYSICAL EXAMINATION: VITAL SIGNS: Temperature is 102.5, respiratory rate of 20 and heart rate of 71. HEENT: Unremarkable. NECK: Supple. LUNGS: Decreased breath sounds. HEART: Normal S1 and S2. ABDOMEN: Soft and nontender. No rebound or guarding. No masses. EXTREMITIES: The patient started infiltrate in the right upper arm with tenderness. LABORATORY DATA: Reveals white count is 99.2, hemoglobin of 12 and platelets of 156. Coagulation is noted. Chemistry reveals a BUN of 8, creatinine of 0.9, procalcitonin is down to 1.35 and LFTs are mildly elevated. Blood cultures are negative. Urine cultures are negative. Stool cultures are negative. Another urine culture is negative. Stool C. diff antigen and toxin are negative. CAT scan of the chest and abdomen is repeated looking for abscesses. No evidence of any abscess. CAT scan of the chest does show questionable minimal infiltrates, although reviewing the CAT scan of the chest does not explain this degree of fevers. The patient is nontoxic. The patient is currently on meropenem and doxycycline. Dr. Kayce Hernandez's progress note is reviewed and appreciated. Case discussed with Dr. Hernandez. ASSESSMENT AND PLAN: This is a 61-year-old male originally from [facility] with systemic inflammatory response syndrome with a benign prostatic hypertrophy, enlarged prostate on CAT scan, history of cataract, history of ulcerative colitis, history of colectomy, the patient is on vedolizumab, history of kidney stones, on day #5 of meropenem and now day #2 of doxycycline, with repeat CAT scan unremarkable, questionable liver lesion on CAT scan, must rule out a liver abscess, concerned complication of monoclonal antibodies, Listeria, CMV, Giardia and of course tuberculosis, although no evidence in the review of CAT scan of the chest. If the patient does have diarrhea, may consider gastrointestinal for further reevaluation and biopsy. Currently, we will order an MRI of the abdomen. Still suspicious of the source since the patient continues to have fevers and chills. I will order a CMV PCR, lung and colon, CMV is a possibility and Listeria is also a possibility. We will order a CMV, DNA PCR and cryptococcal antigen. No obvious source. We will check on final culture results. We will follow closely with you. I suspect this is a combination of ulcerative colitis versus monoclonal antibody. Complications of immunosuppression T-cells. We will check on the MRI. Reviewed MRI of the liver to see if the enhancement on the liver is an abscess. We will make further recommendations. The patient is nontoxic. If the liver function tests continue to rise, we will discontinue the doxycycline. Bradley Craig MD
[2017-08-02] MEDS ORDERED: Gadodiamide 287 MG/ML VIAL (15ML) IV ONE (18:04)
[2017-08-03] MEDS: Meropenem 1g/NS 100mL IVPB 1 GM/100 ML PIGGYBACK IVPB SCH ×3 (05:10→21:26)
[2017-08-03] MEDS: Pantoprazole 20 mg EC Tab PO SCH (05:11)
--- NOTE | 2017-08-03 07:44 | US ---
EXAM: US Abdomen Complete CLINICAL HISTORY: 61 years old, male; Pain; Abdominal pain; Generalized; Additional info: Elevated lft/fever TECHNIQUE: Real-time ultrasound of the abdomen (complete) with image documentation. COMPARISON: CT - CHEST,ABD,PEL W/IV PO CONTRAST 08/01/2017 6:06:57 PM FINDINGS: Liver: There are no focal liver lesions present. A cyst in the right lobe of the liver measures 1.0 CM. A second cyst in the right lobe measures 0.6 CM. No intrahepatic bile duct dilation. Gallbladder: The gallbladder wall is mildly prominent measuring 0.3-0.4 CM. However, the gallbladder appears partially decompressed and therefore this may relate to under distention. Please correlate clinically. A shadowing gallstone is present. Sonographic Mullen sign is negative. Common bile duct: Common bile duct is normal in caliber measuring 0.4 CM. No stones. No dilation. Pancreas: The pancreas is normal. Kidneys: The right kidney is normal. The left kidney is normal. No stones. No hydronephrosis. Spleen: The spleen is normal. Aorta: Unremarkable. No aneurysm. Inferior vena cava: Unremarkable. Pleural space: There is a right pleural effusion. IMPRESSION: 1. There is a right pleural effusion. 2. The gallbladder wall is mildly prominent measuring 0.3-0.4 CM. However, the gallbladder appears partially decompressed and therefore this may relate to under distention. Please correlate clinically. Negative sonographic Mullen's sign. 3. 2 small cysts in the right lower liver.
--- NOTE | 2017-08-03 09:57 | MRI ---
PROCEDURE: Abdominal MRI HISTORY: R/O Hepatic and pelvic abscess COMPARISON: CT chest, abdomen and pelvis 08/01/2017 TECHNIQUE: Multi sequence, multiplanar imaging of the abdomen was performed both with and without intravenous gadolinium administration. Following gadolinium administration, multiple sequential images were obtained utilizing rapid T1 weighted gradient echo imaging. FINDINGS: There is minimal right pleural effusion and trace left pleural effusion. The liver is normal in size, contour and signal intensity. Two small fluid signal masses are seen within the liver. There is an 11 mm mass/ cyst in the superior right lobe and a 7 mm lesion in the inferior right lobe of the liver. These show low T1 and high T2 signal. They do not enhance following gadolinium administration. There is no other hepatic mass. There is no biliary ductal dilatation. There is a calculus in the gallbladder neck. The gallbladder wall is not thickened. There is no pericholecystic fluid. The common bile duct is normal caliber. There is no filling defect seen. The pancreas is normal in appearance without evidence of mass or ductal dilatation. No peripancreatic fluid is appreciated. The spleen is normal in size, contour and signal intensity. There is no focal mass. There is no adrenal mass identified. There is no renal mass or hydronephrosis. There is no ascites. There is no retroperitoneal lymphadenopathy appreciated. The marrow signal of the visualized osseous structures is within normal limits. IMPRESSION: Two small fluid signal hepatic masses, likely cysts. No biliary dilatation. No evidence of hepatic abscess. Cholelithiasis without evidence of cholecystitis. No additional abnormality is identified.
--- NOTE | 2017-08-03 13:07 | CP.PCM.PN ---
<Joel Davis - Last Filed: 08/03/17 13:32> Subjective - Date & Time of Evaluation Date of Evaluation: 08/03/17 Time of Evaluation: 11:00 - Subjective Subjective: Medicine Note Pt S&E at bedside this AM. Febrile overnight. Tm 103.0. Currently abfrible. Denies night sweats. Tolerating current diet. +OOB. Denies Chills, SOB/CP N/V/ D. Objective - Vital Signs/Intake and Output Vital Signs (last 24 hours): Temp Pulse Resp BP Pulse Ox 97.9 F 59 L 20 94/58 L 96 08/03/17 00:00 08/03/17 00:00 08/03/17 00:00 08/03/17 00:00 08/03/17 00:00 Intake and Output: 08/03/17 08/03/17 06:59 18:59 Intake Total 180 Balance 180 - Medications Medications: Current Medications Acetaminophen (Tylenol 325mg Tab) 650 mg PO Q6H PRN PRN Reason: Fever >100.4 F Last Admin: 08/02/17 20:12 Dose: 650 mg Docusate Sodium (Colace) 100 mg PO DAILY [facility] Last Admin: 08/03/17 11:08 Dose: 100 mg Doxycycline Hyclate (Doryx) 100 mg PO Q12 [facility]YS PRN Reason: Protocol Stop: 08/10/17 22:01 Last Admin: 08/03/17 11:09 Dose: 100 mg Meropenem 1g/NS 100mL IVPB (Meropenem 1g/Ns 100ml Ivpb) 1 gm in 100 mls @ 100 mls/hr IVPB Q8 [facility]YS PRN Reason: Protocol Stop: 08/07/17 10:46 Last Admin: 08/03/17 05:10 Dose: 100 mls/hr Sodium Chloride (Sodium Chloride 0.9%) 1,000 mls @ 50 mls/hr IV .Q20H [facility] Last Admin: 08/02/17 12:54 Dose: 50 mls/hr Pantoprazole Sodium (Protonix Ec Tab) 20 mg PO 0600 [facility] Last Admin: 08/03/17 05:11 Dose: 20 mg - Labs Labs: 08/02/17 06:47 08/02/17 06:47 PT 12.7 Seconds (9.9-11.8) H 07/28/17 19:30 INR 1.18 (0.93-1.08) H 07/28/17 19:30 APTT 31.5 Seconds (23.7-30.8) H 07/28/17 19:30 - Constitutional Appears: Non-toxic, No Acute Distress - Head Exam Head Exam: ATRAUMATIC - Eye Exam Eye Exam: EOMI. absent: Scleral icterus - ENT Exam ENT Exam: Mucous Membranes Moist - Respiratory Exam Respiratory Exam: NORMAL BREATHING PATTERN. absent: Accessory Muscle Use, Rales , Rhonchi, Wheezes, Respiratory Distress Additional comments: decreased breath sounds in Left lower lobe - Cardiovascular Exam Cardiovascular Exam: REGULAR RHYTHM, RRR, +S1, +S2. absent: Bradycardia, Tachycardia, Gallop - GI/Abdominal Exam GI & Abdominal Exam: Soft, Normal Bowel Sounds. absent: Distended, Firm, Guarding, Tenderness - Extremities Exam Extremities Exam: Normal Inspection. absent: Calf Tenderness - Neurological Exam Neurological Exam: Alert, Awake, Oriented x3 - Psychiatric Exam Psychiatric exam: Normal Affect - Skin Skin Exam: Normal Color, Warm Assessment and Plan - Assessment and Plan (Free Text) Assessment: 61M with PMH of BPH, Crohn's disease, GIB, gastric ulcer, and iron deficiency anemia presenting with abdominal pain. Pain and nausea is resolved at this time. Pt develops fevers nightly. Pt is on abx therapy per infectious disease. Pt to have Echo performed today to rule out endocarditits. Repeat blood cultures have been negative so far. C. diff stool testing negative. Patient is being followed by ID and GI. Abdominal pain ABD pain and dirrhea resolved at this time Repeat CT abdomen/Pelvis with IV and Oral contrast- No evidence of abscess. slight increased fluid collection at the right lower abdomen Previous Abdomen/Pelvis CT with oral contrast demonstrates extensive, subtotal colectomy MRI of abdomen Two small fluid signal hepatic masses, likely cysts US of Abdomen reveals small right pleural effusion. 2 small cysts in right lower liver R/O Healthcare acquired pneumonia CT chest demonstrating right middle lobe scarring, unlikely pneumonia Legionella negative Quanterfeuron Procalcitonin initially elevated, repeat Procal pending today Repeat blood culture negative at 24 hours On Merrem Doxy ID following, Dr. Shafer NS @ 50- tolerating current diet. Plan to discontinue due to diarrhea resolving Continue monitor electrolytes, replenish as needed Leukocytosis resolved PPX Protonix SCDs No signs of hepatic or pelvic abscess. Patient to shower PRN Plan for Echo today Joel Davis PGY1 <Kayce Hernandez - Last Filed: 08/03/17 15:56> Objective - Vital Signs/Intake and Output Vital Signs (last 24 hours): Temp Pulse Resp BP Pulse Ox 98.8 F 59 L 20 94/58 L 96 08/03/17 14:00 08/03/17 00:00 08/03/17 00:00 08/03/17 00:00 08/03/17 00:00 Intake and Output: 08/03/17 08/03/17 06:59 18:59 Intake Total 180 600 Balance 180 600 - Medications Medications: Current Medications Acetaminophen (Tylenol 325mg Tab) 650 mg PO Q6H PRN PRN Reason: Fever >100.4 F Last Admin: 08/02/17 20:12 Dose: 650 mg Docusate Sodium (Colace) 100 mg PO DAILY [facility] Last Admin: 08/03/17 11:08 Dose: 100 mg Doxycycline Hyclate (Doryx) 100 mg PO Q12 KRYS PRN Reason: Protocol Stop: 08/10/17 22:01 Last Admin: 08/03/17 11:09 Dose: 100 mg Meropenem 1g/NS 100mL IVPB (Meropenem 1g/Ns 100ml Ivpb) 1 gm in 100 mls @ 100 mls/hr IVPB Q8 KRYS PRN Reason: Protocol Stop: 08/07/17 10:46 Last Admin: 08/03/17 13:54 Dose: 100 mls/hr Sodium Chloride (Sodium Chloride 0.9%) 1,000 mls @ 50 mls/hr IV .Q20H [facility] Last Admin: 08/02/17 12:54 Dose: 50 mls/hr Pantoprazole Sodium (Protonix Ec Tab) 20 mg PO 0600 [facility] Last Admin: 08/03/17 05:11 Dose: 20 mg - Labs Labs: 08/03/17 13:10 08/03/17 13:10 PT 12.7 Seconds (9.9-11.8) H 07/28/17 19:30 INR 1.18 (0.93-1.08) H 07/28/17 19:30 APTT 31.5 Seconds (23.7-30.8) H 07/28/17 19:30 Attending/Attestation - Attestation I have personally seen and examined this patient.: Yes I have fully participated in the care of the patient.: Yes I have reviewed all pertinent clinical information, including history, physical exam and plan: Yes Notes (Text): 08/03/17 15:52 Patient was seen and examined with medical coding technician. Agreed with resident assessment and plan. Patient is still having fever, etiology is unclear.MRI of liver is negative for any abscess. We will get 2D and WBC scan. Patient transaminase are stable. Patient diarrhea is at base line. Patient case was discussed with ID Management plan was discussed in detail with patient Education was provided.
[2017-08-03 13:34] LABS: ALB/GLOB RATIO 1.1 (1.1-1.8); ALKALINE PHOSPHATASE 65 U/L (38-126); ALT/SGPT 97 U/L (7-56); AST/SGOT 73 U/L (17-59); BILIRUBIN,TOTAL 0.6 mg/dL (0.2-1.3); BLOOD UREA NITROGEN 10 mg/dL (7-21); CALCIUM 9.1 mg/dL (8.4-10.5); CARBON DIOXIDE 21 mmol/L (21-33); CHLORIDE 104 mmol/L (98-107); GFR AFRICAN-AMERICAN > 60; GLUCOSE,RANDOM 116 mg/dL (70-110); POTASSIUM 3.7 mmol/L (3.6-5.0); SODIUM 138 mmol/L (132-148); TOTAL PROTEIN 7.5 g/dL (5.8-8.3)
--- NOTE | 2017-08-03 17:47 | CP.PCM.PN ---
Subjective - Date & Time of Evaluation Date of Evaluation: 08/03/17 Time of Evaluation: 10:30 - Subjective Subjective: Still having fevers, and occasional chills, no cough,no abdominal pain, no diarrhea. Objective - Vital Signs/Intake and Output Vital Signs (last 24 hours): Temp Pulse Resp BP Pulse Ox 97.9 F 59 L 20 94/58 L 96 08/03/17 00:00 08/03/17 00:00 08/03/17 00:00 08/03/17 00:00 08/03/17 00:00 Intake and Output: 08/03/17 08/03/17 06:59 18:59 Intake Total 180 Balance 180 - Medications Medications: Current Medications Acetaminophen (Tylenol 325mg Tab) 650 mg PO Q6H PRN PRN Reason: Fever >100.4 F Last Admin: 08/02/17 20:12 Dose: 650 mg Docusate Sodium (Colace) 100 mg PO DAILY [facility] Last Admin: 08/02/17 10:07 Dose: 100 mg Doxycycline Hyclate (Doryx) 100 mg PO Q12 KRYS PRN Reason: Protocol Stop: 08/10/17 22:01 Last Admin: 08/02/17 21:18 Dose: 100 mg Meropenem 1g/NS 100mL IVPB (Meropenem 1g/Ns 100ml Ivpb) 1 gm in 100 mls @ 100 mls/hr IVPB Q8 KRYS PRN Reason: Protocol Stop: 08/07/17 10:46 Last Admin: 08/03/17 05:10 Dose: 100 mls/hr Sodium Chloride (Sodium Chloride 0.9%) 1,000 mls @ 50 mls/hr IV .Q20H [facility] Last Admin: 08/02/17 12:54 Dose: 50 mls/hr Pantoprazole Sodium (Protonix Ec Tab) 20 mg PO 0600 [facility] Last Admin: 08/03/17 05:11 Dose: 20 mg - Labs Labs: 08/02/17 06:47 08/02/17 06:47 PT 12.7 Seconds (9.9-11.8) H 07/28/17 19:30 INR 1.18 (0.93-1.08) H 07/28/17 19:30 APTT 31.5 Seconds (23.7-30.8) H 09/30/17 19:30 - Constitutional Appears: Non-toxic, No Acute Distress - Head Exam Head Exam: NORMAL INSPECTION - ENT Exam ENT Exam: Mucous Membranes Moist - Neck Exam Neck Exam: absent: Meningismus - Respiratory Exam Respiratory Exam: Decreased Breath Sounds - Cardiovascular Exam Cardiovascular Exam: +S1, +S2 - GI/Abdominal Exam GI & Abdominal Exam: Soft. absent: Tenderness Assessment and Plan - Assessment and Plan (Free Text) Plan: Assessment Systemic Inflammatory Response Syndrome, sepsis with right middle lobe healthcare-associated pneumonia; still with fevers R/O intra-abdominal infection R/O CMV infection R/O due to ulcerative colitis benign prostatic hyperplasia history of cataracts ulcerative colitis S/P subtotal colectomy on Vedolizumab history of kidney stones Plan Continue Merrem and Doxycycline; reviewed CT C/A/P which showed right middle lobe pneumonia, questionable liver lesion -but MRI of the abdomen only shows liver cysts; follow up CMV PCR, Quantiferon TB test will monitor clinically
--- NOTE | 2017-08-04 04:35 | PN ---
DATE: 08/03/2017 SUBJECTIVE: This patient was seen and evaluated earlier today. The patient's family was at bedside. The patient seems much better now. The patient is afebrile now. PHYSICAL EXAMINATION: VITAL SIGNS: Temperature is 99.2, T-max yesterday night was 103. HEENT: Atraumatic, anicteric. NECK: Supple. HEART: S1 and S2. LUNGS: Bilateral air entry present. ABDOMEN: Soft. There is no mass palpable. No tenderness. LABORATORY DATA: WBC count is 9.4. The patient did have an MRI done before, which was reviewed. Small cystic lesion in the liver noticed. cholelithiasis, no evidence of cholecystitis. Gallstone present. IMPRESSION AND PLAN: A 61-year-old patient with Crohn's disease status post total colectomy with a ileal pouch. Admitted with fever after he returned from [place]. The patient has been on IV antibiotic. Requested CMV, PCR, and quantifier on TB test by the Infectious Disease. Continue the antibiotics as per Infectious Disease, tolerating the diet. We will continue to closely follow up his care and suggest further management based on the clinical course. Rosa Albarran MD MTDD
[2017-08-04] MEDS: Pantoprazole 20 mg EC Tab PO SCH (06:05)
[2017-08-04] MEDS: Meropenem 1g/NS 100mL IVPB 1 GM/100 ML PIGGYBACK IVPB SCH ×3 (06:26→21:38)
[2017-08-04 07:51] LABS: BASO # 0.04 K/mm3 (0.0-2.0); BASO % 0.4 % (0.0-3.0); EOS # 0.2 (0.0-0.7); EOS % 2.2 % (1.5-5.0); GRAN # 5.92 (1.4-6.5); GRAN % 65.2 % (50.0-68.0); HEMATOCRIT 36.3 % (42.0-52.0); LYMPH # 1.7 (1.2-3.4); LYMPH % 19.1 % (22.0-35.0); MEAN CELL VOLUME 80.1 fl (80.0-105.0); MEAN CORPUSCULAR HEMOGLOBIN 27.4 pg (25.0-35.0); MEAN CORPUSCULAR HGB CONC 34.2 g/dl (31.0-37.0); MEAN PLATELET VOLUME 10.3 fl (7.0-11.0); MONO # 1.2 (0.1-0.6); MONO % 13.1 % (1.0-6.0); RED CELL DISTRIBUTION WIDTH 13.6 % (11.5-14.5); WHITE BLOOD COUNT 9.1 10^3/ul (4.5-11.0)
[2017-08-04 08:16] LABS: ALB/GLOB RATIO 1.1 (1.1-1.8); ALKALINE PHOSPHATASE 60 U/L (38-126); ALT/SGPT 78 U/L (7-56); AST/SGOT 57 U/L (17-59); BILIRUBIN,TOTAL 0.5 mg/dL (0.2-1.3); BLOOD UREA NITROGEN 11 mg/dL (7-21); CARBON DIOXIDE 24 mmol/L (21-33); CHLORIDE 105 mmol/L (98-107); GFR AFRICAN-AMERICAN > 60; GLUCOSE,RANDOM 93 mg/dL (70-110); POTASSIUM 4.2 mmol/L (3.6-5.0); SODIUM 139 mmol/L (132-148)
--- NOTE | 2017-08-04 10:38 | CP.PCM.PN ---
<KatrinJessican - Last Filed: 08/04/17 10:46> Subjective - Date & Time of Evaluation Date of Evaluation: 08/04/17 Time of Evaluation: 07:35 - Subjective Subjective: Patient seen and examined at bedside. The patient denies any fevers or chills from overnight. The patient does reports some new onset left buttock pain. The patient denies any chest pain, abdominal pain, lightheadedness, dizziness, changes in vision, or any other complaints. Objective - Vital Signs/Intake and Output Vital Signs (last 24 hours): Temp Pulse Resp BP Pulse Ox 98 F 76 20 96/64 L 96 08/04/17 10:20 08/04/17 10:20 08/04/17 10:20 08/04/17 10:20 08/04/17 10:20 Intake and Output: 08/04/17 08/04/17 06:59 18:59 Intake Total 0 Balance 0 - Medications Medications: Current Medications Acetaminophen (Tylenol 325mg Tab) 650 mg PO Q6H PRN PRN Reason: Fever >100.4 F Last Admin: 08/02/17 20:12 Dose: 650 mg Docusate Sodium (Colace) 100 mg PO DAILY [facility] Last Admin: 08/04/17 09:17 Dose: Not Given Doxycycline Hyclate (Doryx) 100 mg PO Q12 [facility] PRN Reason: Protocol Stop: 08/10/17 22:01 Last Admin: 08/04/17 09:18 Dose: 100 mg Meropenem 1g/NS 100mL IVPB (Meropenem 1g/Ns 100ml Ivpb) 1 gm in 100 mls @ 100 mls/hr IVPB Q8 [facility] PRN Reason: Protocol Stop: 08/07/17 10:46 Last Admin: 08/04/17 06:26 Dose: 100 mls/hr Sodium Chloride (Sodium Chloride 0.9%) 1,000 mls @ 50 mls/hr IV .Q20H [facility] Last Admin: 08/02/17 12:54 Dose: 50 mls/hr Pantoprazole Sodium (Protonix Ec Tab) 20 mg PO 0600 [facility] Last Admin: 08/03/17 05:11 Dose: 20 mg - Labs Labs: 08/04/17 07:42 08/04/17 07:42 PT 12.7 Seconds (9.9-11.8) H 07/28/17 19:30 INR 1.18 (0.93-1.08) H 07/28/17 19:30 APTT 31.5 Seconds (23.7-30.8) H 07/28/17 19:30 - Head Exam Head Exam: ATRAUMATIC, NORMAL INSPECTION, NORMOCEPHALIC - Eye Exam Eye Exam: EOMI, Normal appearance, PERRL. absent: Periorbital tenderness Pupil Exam: NORMAL ACCOMODATION, PERRL. absent: Irregular, Unequal - ENT Exam ENT Exam: Mucous Membranes Moist, Normal Exam, TM's Normal Bilaterally - Neck Exam Neck Exam: Normal Inspection. absent: Lymphadenopathy, Thyromegaly - Respiratory Exam Respiratory Exam: Clear to Ausculation Bilateral, NORMAL BREATHING PATTERN. absent: Prolonged Expiratory Phase, Respiratory Distress - Cardiovascular Exam Cardiovascular Exam: REGULAR RHYTHM, RRR, +S1, +S2. absent: Gallop, Rubs - GI/Abdominal Exam GI & Abdominal Exam: Soft, Normal Bowel Sounds. absent: Tenderness, Hyperactive Bowel Sounds - Extremities Exam Extremities Exam: Normal Inspection. absent: Joint Swelling, Pedal Edema - Back Exam Back Exam: NORMAL INSPECTION. absent: CVA tenderness (L), CVA tenderness (R), paraspinal tenderness - Neurological Exam Neurological Exam: Alert, Awake, CN II-XII Intact, Normal Gait, Oriented x3 - Psychiatric Exam Psychiatric exam: Normal Affect, Normal Mood - Skin Skin Exam: Dry, Intact Assessment and Plan - Assessment and Plan (Free Text) Assessment: 61M with PMH of BPH, Crohn's disease, GIB, gastric ulcer, and iron deficiency anemia presenting with abdominal pain. Pain and nausea is resolved at this time. Pt develops fevers nightly. Pt is on abx therapy per infectious disease. Pt to have Echo performed today to rule out endocarditits. Repeat blood cultures have been negative so far. C. diff stool testing negative. Patient is being followed by ID and GI. Plan: 1. Abdominal pain -ABD pain and dirrhea resolved at this time -Repeat CT abdomen/Pelvis with IV and Oral contrast- No evidence of abscess. slight increased fluid collection at the right lower abdomen -Previous Abdomen/Pelvis CT with oral contrast demonstrates extensive, subtotal colectomy -MRI of abdomen Two small fluid signal hepatic masses, likely cysts -US of Abdomen reveals small right pleural effusion. 2 small cysts in right lower liver -Patient tolerating diet with no complaints. Continue to advance as tolerated. -Continue antibiotics per ID. -Patient a-febrile overnight and no leukocytosis. Will continue to monitor. 2.R/O Healthcare acquired pneumonia -CT chest demonstrating right middle lobe scarring, unlikely pneumonia -Legionella negative -Quanterfeuron -Procalcitonin initially elevated, repeat Procal pending today -Repeat blood culture negative at 24 hours -Continue Merrem Doxy -ID following, Dr. Shafer 3. New onset left buttock pain -Most likely 2/2 to sitting in the bed for long periods at a time. Clinical exam showed no erythema, ulcers, abscess, or discharge. -Left buttock U/S ordered. Will f/u with rec's tomorrow. 4. Diarheaa -Resolving and patient tolerating diet. Leukocytosis resolved. -NS d/c'ed. Will continue to monitor closely. PPX Protonix SCDs <Kayce Hernandez - Last Filed: 08/04/17 17:21> Objective - Vital Signs/Intake and Output Vital Signs (last 24 hours): Temp Pulse Resp BP Pulse Ox 98 F 76 20 96/64 L 96 08/04/17 10:20 08/04/17 10:20 08/04/17 10:20 08/04/17 10:20 08/04/17 10:20 Intake and Output: 08/04/17 08/04/17 06:59 18:59 Intake Total 0 1100 Balance 0 1100 - Medications Medications: Current Medications Acetaminophen (Tylenol 325mg Tab) 650 mg PO Q6H PRN PRN Reason: Fever >100.4 F Last Admin: 08/02/17 20:12 Dose: 650 mg Docusate Sodium (Colace) 100 mg PO DAILY [facility] Last Admin: 08/04/17 09:17 Dose: Not Given Doxycycline Hyclate (Doryx) 100 mg PO Q12 [facility] PRN Reason: Protocol Stop: 08/10/17 22:01 Last Admin: 08/04/17 09:18 Dose: 100 mg Meropenem 1g/NS 100mL IVPB (Meropenem 1g/Ns 100ml Ivpb) 1 gm in 100 mls @ 100 mls/hr IVPB Q8 [facility] PRN Reason: Protocol Stop: 08/07/17 10:46 Last Admin: 08/04/17 14:54 Dose: 100 mls/hr Pantoprazole Sodium (Protonix Ec Tab) 20 mg PO 0600 [facility] Last Admin: 08/03/17 05:11 Dose: 20 mg - Labs Labs: 08/04/17 07:42 08/04/17 07:42 PT 12.7 Seconds (9.9-11.8) H 07/28/17 19:30 INR 1.18 (0.93-1.08) H 07/28/17 19:30 APTT 31.5 Seconds (23.7-30.8) H 07/28/17 19:30 Attending/Attestation - Attestation I have personally seen and examined this patient.: Yes I have fully participated in the care of the patient.: Yes I have reviewed all pertinent clinical information, including history, physical exam and plan: Yes Notes (Text): 08/04/17 17:17 Patient was seen and examined with medical imaging tech. Agreed with resident assessment and plan. Patient is feeling better.He is afebrile since last 24 hour, etiology is unclear.MRI of liver is negative for any abscess. There is no evidence of buttock abscess or fluid collection on USG. Blood cultures are negative for any growth. Patient transaminase are improving Patient diarrhea is at base line. Management plan was discussed in detail with patient Education was provided. 08/04/17 17:18
--- NOTE | 2017-08-04 11:09 | US ---
PROCEDURE: Soft tissue ultrasound HISTORY: left buttock COMPARISON: None TECHNIQUE: Standard protocol for this study/examination. FINDINGS: No abnormal fluid collections or masses. No sinus tracts identified. Gluteal muscles are symmetrical. IMPRESSION: No significant or acute findings to account for/ related to the clinical presentation.
--- NOTE | 2017-08-04 14:38 | CP.PCM.PN ---
Subjective - Date & Time of Evaluation Date of Evaluation: 08/04/17 Time of Evaluation: 11:10 - Subjective Subjective: No fevers overnight, cough is improving, no SOB at rest, not in distress, no diarrhea, no abdominal pain. Objective - Vital Signs/Intake and Output Vital Signs (last 24 hours): Temp Pulse Resp BP Pulse Ox 99.2 F 67 20 122/71 98 08/03/17 16:43 08/03/17 16:43 08/03/17 16:43 08/03/17 16:43 08/03/17 16:43 Intake and Output: 08/04/17 08/04/17 06:59 18:59 Intake Total 0 Balance 0 - Medications Medications: Current Medications Acetaminophen (Tylenol 325mg Tab) 650 mg PO Q6H PRN PRN Reason: Fever >100.4 F Last Admin: 08/02/17 20:12 Dose: 650 mg Docusate Sodium (Colace) 100 mg PO DAILY [facility] Last Admin: 08/03/17 11:08 Dose: 100 mg Doxycycline Hyclate (Doryx) 100 mg PO Q12 [facility] PRN Reason: Protocol Stop: 08/10/17 22:01 Last Admin: 08/03/17 21:26 Dose: 100 mg Meropenem 1g/NS 100mL IVPB (Meropenem 1g/Ns 100ml Ivpb) 1 gm in 100 mls @ 100 mls/hr IVPB Q8 [facility] PRN Reason: Protocol Stop: 08/07/17 10:46 Last Admin: 08/04/17 06:26 Dose: 100 mls/hr Sodium Chloride (Sodium Chloride 0.9%) 1,000 mls @ 50 mls/hr IV .Q20H [facility] Last Admin: 08/02/17 12:54 Dose: 50 mls/hr Pantoprazole Sodium (Protonix Ec Tab) 20 mg PO 0600 [facility] Last Admin: 08/03/17 05:11 Dose: 20 mg - Labs Labs: 08/03/17 13:10 08/03/17 13:10 PT 12.7 Seconds (9.9-11.8) H 07/28/17 19:30 INR 1.18 (0.93-1.08) H 07/28/17 19:30 APTT 31.5 Seconds (23.7-30.8) H 07/28/17 19:30 - Constitutional Appears: Non-toxic, No Acute Distress - Head Exam Head Exam: NORMAL INSPECTION - ENT Exam ENT Exam: Mucous Membranes Moist - Neck Exam Neck Exam: absent: Lymphadenopathy, Meningismus - Respiratory Exam Respiratory Exam: Decreased Breath Sounds - Cardiovascular Exam Cardiovascular Exam: +S1, +S2 - GI/Abdominal Exam GI & Abdominal Exam: Soft. absent: Tenderness Assessment and Plan - Assessment and Plan (Free Text) Plan: Assessment Systemic Inflammatory Response Syndrome, sepsis with right middle lobe healthcare-associated pneumonia; R/O CMV infection R/O due to ulcerative colitis benign prostatic hyperplasia history of cataracts ulcerative colitis S/P subtotal colectomy on Vedolizumab history of kidney stones Plan Continue Merrem and Doxycycline for now; reviewed CT C/A/P which showed right middle lobe pneumonia, questionable liver lesion -but MRI of the abdomen only shows liver cysts; follow up CMV PCR, Quantiferon TB test will continue to monitor clinically and trend fever curve
--- NOTE | 2017-08-04 19:20 | PN ---
DATE: 08/04/2017 SUBJECTIVE: This patient was seen and evaluated earlier, discussed. The patient is comfortable. Feels much better than before. Remains afebrile. PHYSICAL EXAMINATION: VITAL SIGNS: Blood pressure 122/71, pulse rate 67, respiration is 20. HEENT: Atraumatic, anicteric. NECK: Supple. HEART: S1 and S2 heard. LUNGS: Bilateral air entry present. ABDOMEN: Soft. There is no mass palpable. No tenderness. EXTREMITIES: No edema. LABORATORY DATA: Hemoglobin 12.4, hematocrit 36.3, WBC 9.1, platelets 238. Chemistry is essentially unremarkable except alkaline phosphatase mildly elevated 78. IMPRESSION AND PLAN: This 61-year-old patient with Crohn's disease on Entyvio, admitted with fever, diarrhea, abdominal pain, clinically suggestive of acute gastroenteritis. The patient has been spiking fever on broad-spectrum antibiotic coverage as per Infectious Disease. Repeat CT scan reviewed. Possible right middle lobe pneumonia. The patient has been also evaluated by the Infectious Disease. Rule out CMV. The patient has Crohn's disease however, no abscess noticed. The patient had a pouch presently, mildly elevated AST. Hepatitis serology has been negative. Blood sent also for a QuantiFERON gold test. Rule out CMV. Continue the antibiotics as per Infectious Disease. We will continue to follow up of the LFT's. Continue to closely follow up his care. Thank you very much for allowing me to participate in the care of the patient. Rosa Albarran MD
--- NOTE | 2017-08-04 22:20 | CARD ---
APPROVED REPORT EXAM: Two-dimensional and M-mode echocardiogram with Doppler and color Doppler. INDICATION Infection:Rule out subacute bacterial endocarditis 2D DIMENSIONS Left Atrium (2D)3.4 (1.6-4.0cm)IVSd1.0 (0.7-1.1cm) LVDd4.1 (3.9-5.9cm)PWd0.9 (0.7-1.1cm) LVDs2.8 (2.5-4.0cm)FS (%) 31.5 % LVEF (%)59.9 (>50%) M-Mode DIMENSIONS Aortic Root3.00 (2.2-3.7cm)Aortic Cusp Exc.1.70 (1.5-2.0cm) Aortic Valve AoV Peak Uhgqkbpr501.0cm/Praveen Peak GR.8mmHg Mitral Valve MV E Afsnzacb90.0cm/sMV A Yamqugzz01.3cm/sE/A ratio0.8 TDI Lateral E' Peak V12.00cm/sMedial E' Peak V8.68cm/sE/Lateral E'4.2 E/Medial E'5.8 Pulmonary Valve PV Peak Vdmqvqml52.5cm/sPV Peak Grad.2mmHg Tricuspid Valve TR Peak Upwneybs127lv/sRAP [id number] Peak Gr.28mmHg [id number] LEFT VENTRICLE The left ventricle is normal size. There is normal left ventricular wall thickness. The left ventricular function is normal. The left ventricular ejection fraction is within the normal range. There is normal LV segmental wall motion. Transmitral Doppler flow pattern is Grade I-abnormal relaxation pattern. RIGHT VENTRICLE The right ventricle is normal size. There is normal right ventricular wall thickness. The right ventricular systolic function is normal. ATRIA The left atrium size is normal. The right atrium size is normal. AORTIC VALVE The aortic valve is normal in structure. No aortic regurgitation is present. There is no aortic valvular stenosis. MITRAL VALVE The mitral valve is mildly thickened. There is no mitral valve regurgitation noted. TRICUSPID VALVE There is mild tricuspid regurgitation. There is mild pulmonary hypertension. GREAT VESSELS The aortic root is normal in size. <Conclusion> The left ventricle is normal size. There is normal left ventricular wall thickness. The left ventricular function is normal. The left ventricular ejection fraction is within the normal range. There is normal LV segmental wall motion. Transmitral Doppler flow pattern is Grade I-abnormal relaxation pattern. There is mild tricuspid regurgitation. There is mild pulmonary hypertension. No vegitation seen
[2017-08-05] MEDS: Pantoprazole 20 mg EC Tab PO SCH (06:05)
[2017-08-05] MEDS: Meropenem 1g/NS 100mL IVPB 1 GM/100 ML PIGGYBACK IVPB SCH (06:05)
[2017-08-05 07:26] LABS: BASO # 0.04 K/mm3 (0.0-2.0); BASO % 0.4 % (0.0-3.0); EOS # 0.2 (0.0-0.7); EOS % 2.1 % (1.5-5.0); GRAN # 7.3 (1.4-6.5); GRAN % 69.8 % (50.0-68.0); HEMATOCRIT 37.3 % (42.0-52.0); LYMPH # 1.8 (1.2-3.4); LYMPH % 16.9 % (22.0-35.0); MEAN CELL VOLUME 80.9 fl (80.0-105.0); MEAN CORPUSCULAR HGB CONC 34.6 g/dl (31.0-37.0); MEAN PLATELET VOLUME 9.9 fl (7.0-11.0); MONO # 1.1 (0.1-0.6); MONO % 10.8 % (1.0-6.0); RED CELL DISTRIBUTION WIDTH 13.7 % (11.5-14.5); WHITE BLOOD COUNT 10.5 10^3/ul (4.5-11.0)
[2017-08-05 07:46] LABS: ALB/GLOB RATIO 1.1 (1.1-1.8); ALKALINE PHOSPHATASE 70 U/L (38-126); ALT/SGPT 84 U/L (7-56); AST/SGOT 52 U/L (17-59); BILIRUBIN,TOTAL 0.6 mg/dL (0.2-1.3); BLOOD UREA NITROGEN 13 mg/dL (7-21); CALCIUM 9.3 mg/dL (8.4-10.5); CARBON DIOXIDE 23 mmol/L (21-33); CHLORIDE 104 mmol/L (98-107); GFR AFRICAN-AMERICAN > 60; GLUCOSE,RANDOM 92 mg/dL (70-110); POTASSIUM 4.3 mmol/L (3.6-5.0); SODIUM 139 mmol/L (132-148); TOTAL PROTEIN 7.4 g/dL (5.8-8.3)
[2017-08-05 08:30] VITALS: BP 117/72; PULSE 74; RESP 18; TEMP 98.5; O2SAT 97
[2017-08-05] MEDS ORDERED: [UNRECOGNIZED DRUG - OTHER] IV SCH (11:15)
--- NOTE | 2017-08-05 16:34 | CP.PCM.PN ---
Subjective - Date & Time of Evaluation Date of Evaluation: 08/05/17 Time of Evaluation: 10:50 - Subjective Subjective: Comfortable, afebrile, not in distress. Objective - Vital Signs/Intake and Output Vital Signs (last 24 hours): Temp Pulse Resp BP Pulse Ox 98.5 F 74 18 117/72 97 08/05/17 08:29 08/05/17 08:29 08/05/17 08:29 08/05/17 08:29 08/05/17 08:29 Intake and Output: 08/05/17 08/05/17 06:59 18:59 Intake Total 240 Balance 240 - Medications Medications: Current Medications Acetaminophen (Tylenol 325mg Tab) 650 mg PO Q6H PRN PRN Reason: Fever >100.4 F Last Admin: 08/02/17 20:12 Dose: 650 mg Docusate Sodium (Colace) 100 mg PO DAILY [facility] Last Admin: 08/05/17 09:09 Dose: Not Given Doxycycline Hyclate (Doryx) 100 mg PO Q12 KRYS PRN Reason: Protocol Stop: 08/10/17 22:01 Last Admin: 08/05/17 09:08 Dose: 100 mg Meropenem 1g/NS 100mL IVPB (Meropenem 1g/Ns 100ml Ivpb) 1 gm in 100 mls @ 100 mls/hr IVPB Q8 KRYS PRN Reason: Protocol Stop: 08/07/17 10:46 Last Admin: 08/05/17 06:05 Dose: 100 mls/hr Pantoprazole Sodium (Protonix Ec Tab) 20 mg PO 0600 [facility] Last Admin: 08/05/17 06:05 Dose: 20 mg - Labs Labs: 08/05/17 07:00 08/05/17 07:00 PT 12.7 Seconds (9.9-11.8) H 07/28/17 19:30 INR 1.18 (0.93-1.08) H 07/28/17 19:30 APTT 31.5 Seconds (23.7-30.8) H 07/28/17 19:30 - Constitutional Appears: Non-toxic, No Acute Distress - Head Exam Head Exam: NORMAL INSPECTION - Neck Exam Neck Exam: absent: Meningismus - Respiratory Exam Respiratory Exam: Decreased Breath Sounds - Cardiovascular Exam Cardiovascular Exam: +S1, +S2 - GI/Abdominal Exam GI & Abdominal Exam: Soft. absent: Tenderness Assessment and Plan - Assessment and Plan (Free Text) Plan: Assessment Systemic Inflammatory Response Syndrome, sepsis with right middle lobe healthcare-associated pneumonia; R/O CMV infection R/O due to ulcerative colitis benign prostatic hyperplasia history of cataracts ulcerative colitis S/P subtotal colectomy on Vedolizumab history of kidney stones Plan on Merrem and Doxycycline day 8; reviewed CT C/A/P which showed right middle lobe pneumonia, questionable liver lesion -but MRI of the abdomen only shows liver cysts; follow up CMV PCR, Quantiferon TB test (which can be followed by PMD) he continues to be afebrile, can switch to PO Levaquin for another [address] Hernandez
--- NOTE | 2017-08-05 20:14 | PN ---
DATE: 08/05/2017 SUBJECTIVE: This patient was seen and evaluated today. Patient remains afebrile, tolerating the diet. No complains of any abdominal pain. PHYSICAL EXAMINATION VITAL SIGNS: Temperature is 98.5, pulse 74, blood pressure 117/72, respirations 18, O2 saturations 97%. HEENT: Atraumatic and anicteric. NECK: Supple. HEART: S1 and S2 heard. LUNGS: Bilateral air entry present. ABDOMEN: Soft. There is no tenderness. EXTREMITIES: No edema or cyanosis. LABORATORY DATA: Hemoglobin 12.9, hematocrit 37.3, WBC's 10.5, platelets 292. Chemistries; ALT is 84, otherwise, unremarkable. ASSESSMENT: This 61-year-old patient with Crohn's disease status post Entyvio injection once on 2 monthly basis, last one was in May, admitted with severe sepsis, systemic inflammatory syndrome. Patient is on meropenem and doxycycline antibiotics for pneumonia. Patient has been switched over to p.o. antibiotics Levaquin for another 3 days. Course of plan to be discharged. 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 Garcia, #[phone]. Patient needs to get an Infectious Disease clearance prior to resuming the interview. This was also discussed with Dr. Tejada who administers infusion therapy. Thank you very much for allowing me to participate in the care of this patient. Rosa Albarran MD
== END 2017-08-05 13:56 | disposition home or self-care (01) | DRG 584 ==
LOC: ED 18:38 → ERH 21:10 → 3RNO 22:22
PROVIDERS: ADMIT Internal Medicine; ATTEND Internal Medicine
DX: A41.9 Sepsis, unspecified organism (principal); J18.9 Pneumonia, unspecified organism; K50.90 Crohn's disease, unspecified, without complications; E86.0 Dehydration; K52.9 Noninfective gastroenteritis and colitis, unspecified; E83.39 Other disorders of phosphorus metabolism; D50.9 Iron deficiency anemia, unspecified; N40.0 Benign prostatic hyperplasia without lower urinary tract symptoms; K80.20 Calculus of gallbladder without cholecystitis without obstruction; K76.89 Other specified diseases of liver; Z87.442 Personal history of urinary calculi; Z87.11 Personal history of peptic ulcer disease

== ENCOUNTER 2018-01-14 02:44 | Inpatient (IN) | payer OTHER ==
[2018-01-14 02:51] VITALS: BMI 24.5
[2018-01-14] MEDS ORDERED: Morphine 2 mg/ml ISec IVP STA ×2 (03:00→06:25)
[2018-01-14] MEDS ORDERED: Pantoprazole 40 MG in Sodium Chloride 0.9% 100 ML IV STA (03:00)
[2018-01-14] MEDS ORDERED: Sodium Chloride 0.9% 1,000 ML IV STA (03:00)
--- NOTE | 2018-01-14 03:09 | ED PDOC ---
Arrival/HPI - General Chief Complaint: Abdominal Pain Time Seen by Provider: 01/14/18 02:46 Historian: Patient - History of Present Illness Narrative History of Present Illness (Text): 01/14/18 03:08 A 62 year old male, whose past medical history includes ulcerative colitis, stomach ulcer, GI bleeding and Crohn's disease, presents to the emergency department complaining of abdominal pain. Patient describes pain as cramping. Reports he can't get comfortable. Patient denies any fever, chills, dysuria, nausea, vomiting, diarrhea, headache, dizziness or any other complaints at this time. Symptom Onset: Sudden Symptom Course: Unchanged Activities at Onset: Rest Context: Home Past Medical History - Provider Review Nursing Documentation Reviewed: Yes - Infectious Disease Hx of Infectious Diseases: None - Cardiac Hx Cardiac Disorders: No - Pulmonary Hx Respiratory Disorders: No - Neurological Hx Neurological Disorder: No Hx Paralysis: No - HEENT Hx HEENT Disorder: Yes Hx Cataracts: Yes (bilat iol) - Renal Hx Kidney Stones: Yes Other/Comment: ELEVATED PSA - Endocrine/Metabolic Hx Endocrine Disorders: No - Hematological/Oncological Hx Blood Transfusions: No Hx Blood Transfusion Reaction: No - Integumentary Hx Dermatological Disorder: No - Musculoskeletal/Rheumatological Hx Musculoskeletal Disorders: No - Gastrointestinal Hx Gastrointestinal Disorders: Yes (ulcerative colitis) Hx Bowel Surgery: Yes (colectomy) Hx Crohn's Disease: Yes - Genitourinary/Gynecological Hx Genitourinary Disorders: Yes (elevated psa) Hx Prostate Problems: Yes - Psychiatric Hx Emotional Abuse: No Hx Physical Abuse: No Hx Substance Use: No - Surgical History Hx Cardiac Catheterization: Yes (aug 2014 just routine asymtomatic per pt negative) Other/Comment: TURP and colectomy 2011 - Anesthesia Hx Anesthesia: Yes Hx Anesthesia Reactions: No Hx Malignant Hyperthermia: No - Suicidal Assessment Feels Threatened In Home Enviroment: No Family/Social History - Physician Review Nursing Documentation Reviewed: Yes Family/Social History: No Known Family HX Smoking Status: Never Smoked Hx Alcohol Use: Yes (OCCASSIONAL) Hx Substance Use: No Allergies/Home Meds Allergies/Adverse Reactions: Allergies No Known Allergies Allergy (Verified 01/14/18 11:54) Home Medications: Home Meds Medication Instructions Recorded Confirmed Vedolizumab [Entyvio] 1 vial IV ONCE 07/28/17 01/14/18 Meloxicam [Mobic] 15 mg PO DAILY 01/14/18 01/14/18 Tamsulosin [Flomax] 0.4 mg PO DAILY 01/14/18 01/14/18 Review of Systems - Physician Review All systems were reviewed & negative as marked: Yes - Review of Systems Constitutional: absent: Fevers, Other (chills) Gastrointestinal: Abdominal Pain. absent: Diarrhea, Nausea, Vomiting Genitourinary Male: absent: Dysuria Neurological: absent: Headache, Dizziness Physical Exam Vital Signs Reviewed: Yes Vital Signs Temp Pulse Resp BP Pulse Ox 01/14/18 08:04 97.8 F 68 18 127/76 98 01/14/18 06:45 79 18 119/89 100 01/14/18 02:58 97.5 F L 71 18 132/92 H 100 Temperature: Afebrile Blood Pressure: Hypotensive Pulse: Regular Respiratory Rate: Normal Appearance: Positive for: Well-Appearing, Non-Toxic, Comfortable Pain Distress: None Mental Status: Positive for: Alert and Oriented X 3 - Systems Exam Head: Present: Atraumatic, Normocephalic Pupils: Present: PERRL Extroacular Muscles: Present: EOMI Conjunctiva: Present: Normal Mouth: Present: Moist Mucous Membranes Neck: Present: Normal Range of Motion Respiratory/Chest: Present: Clear to Auscultation, Good Air Exchange. No: Respiratory Distress, Accessory Muscle Use Cardiovascular: Present: Regular Rate and Rhythm, Normal S1, S2. No: Murmurs Abdomen: Present: Tenderness, Normal Bowel Sounds. No: Distention, Peritoneal Signs, Rebound Back: Present: Normal Inspection Upper Extremity: Present: Normal Inspection. No: Cyanosis, Edema Lower Extremity: Present: Normal Inspection. No: Edema Neurological: Present: GCS=15, CN II-XII Intact, Speech Normal Skin: Present: Warm, Dry, Normal Color. No: Rashes Psychiatric: Present: Alert, Oriented x 3, Normal Insight, Normal Concentration Medical Decision Making ED Course and Treatment: 01/14/18 03:07 Impression: A 62 year old male with abdominal pain/cramping. Plan: -- EKG -- labs -- Urinalysis -- Morphine, IV fluids, Zofran, Protonix -- Reassess and disposition Prior Visits: Notes and results from previous visits were reviewed. Patient was last seen in the emergency department on 07/28/17 for evaluation of abdominal pain and diarrhea. Progress Notes: 01/14/18 05:33 CT abdomen and pelvis without intravenous contrast Impression: Mid to distal small bowel obstruction with transition point in the right midabdomen likely secondary to adhesions. Status post colectomy. Right lateral abdominal wall hernia containing short segment of bowel. Gallstone. Nonobstructing left renal stone. Mild prostate hypertrophy. Too small to characterize liver hypodensities probably cysts. No followup necessary. Dictated and Authenticated by: Sandy Jalloh MD 01/14/2018 5:18 AM Eastern Time ([place] & [place]) 01/14/18 06:00 EKG: Ordered, reviewed, and independently interpreted the EKG. Rate : 64 BPM Rhythm : NSR Interpretation : Nonspecific ST segment changes - Lab Interpretations Microbiology Results: Microbiology Results 01/14/18 03:45 Blood-Venous Blood Culture - Preliminary NO GROWTH AFTER 4 DAYS 01/14/18 03:50 Blood-Venous Blood Culture - Preliminary NO GROWTH AFTER 4 DAYS Lab Results: 01/14/18 04:08 01/14/18 04:08 Lab Results 01/14/18 06:04: Urine Color Yellow, Urine Appearance Clear, Urine pH 6.0, Ur Specific [place] >= 1.030, Urine Protein Negative, Urine Glucose (UA) Negative, Urine Ketones Negative, Urine Blood Negative, Urine Nitrate Negative, Urine Bilirubin Negative, Urine Urobilinogen 0.2, Ur Leukocyte Esterase Negative 01/14/18 04:08: Magnesium 2.2 01/14/18 04:08: Lactic Acid 1.8 01/14/18 04:08: Sodium 143, Potassium 4.3, Chloride 107, Carbon Dioxide 24, Anion Gap 16, BUN 21, Creatinine 1.0, Est GFR ( Amer) > 60, Est GFR (Non- Af Amer) > 60, Random Glucose 102, Calcium 10.3, Total Bilirubin 0.6, AST 23, ALT 28, Alkaline Phosphatase 73, Lactate Dehydrogenase 396, Total Creatine Kinase 103, Troponin I < 0.01, Total Protein 8.0, Albumin 4.3, Globulin 3.7, Albumin/Globulin Ratio 1.1, Amylase 89, Lipase 213 01/14/18 04:08: PT 11.8, INR 1.03, APTT 26.4 01/14/18 04:08: WBC 12.1 H, RBC 5.01, Hgb 14.4, Hct 41.7 L, MCV 83.2, MCH 28.7, MCHC 34.5, RDW 13.3, Plt Count 199, MPV 10.6, Gran % 78.5 H, Lymph % (Auto) 14.0 L, [place] % (Auto) 6.3 H, Eos % (Auto) 0.9 L, Baso % (Auto) 0.3, Gran # 9.48 H, Lymph # (Auto) 1.7, [place] # (Auto) 0.8 H, Eos # (Auto) 0.1, Baso # (Auto) 0.04 I have reviewed the lab results: Yes - RAD Interpretation Radiology Orders: 01/14/18 04:10 ABD & PELVIS W/O PO OR IV CONT [CT] Stat - EKG Interpretation Interpreted by ED Physician: Yes Type: 12 lead EKG - Medication Orders Current Medication Orders: Enoxaparin Sodium (Lovenox) 30 mg SC DAILY COUNT INCLUDES THE [facility] PRN Reason: Protocol Last Admin: 01/18/18 09:53 Dose: 30 mg Subcutaneous Administrations Document 01/18/18 09:53 [facility] (Rec: 01/18/18 09:53 [id number]) Charges for Administration # of Subcutaneous Administrations 1 Lactated Ringer's (Lactated Ringer's) 1,000 mls @ 110 mls/hr IV .Q9H6M COUNT INCLUDES THE [facility] Last Admin: 01/17/18 19:36 Dose: 110 mls/hr eMAR Start Stop Document 01/17/18 19:36 (Rec: 01/17/18 19:36 [id number] Intravenous Solution Start Date 01/17/18 Start Time 19:36 Metoclopramide HCl (Reglan) 5 mg IVP Q8 COUNT INCLUDES THE [facility] Last Admin: 01/18/18 05:36 Dose: 5 mg IVP Administration Document 01/18/18 05:36 (Rec: 01/18/18 05:36 [id number] Charges for Administration # of IVP Administrations 1 Ondansetron HCl (Zofran Inj) 4 mg IVP Q4H PRN PRN Reason: Nausea/Vomiting Pantoprazole Sodium (Protonix Inj) 40 mg IVP DAILY COUNT INCLUDES [facility] Last Admin: 01/18/18 09:53 Dose: 40 mg IVP Administration Document 01/18/18 09:53 BIR (Rec: 01/18/18 09:53 [id number]) Charges for Administration # of IVP Administrations 1 Vitamin A (Vitamin A & D Oint Ud Foilpak) 1 ea TOP Q2 PRN PRN Reason: Dry mouth Last Admin: 01/17/18 09:50 Dose: 1 ea Discontinued Medications Acetaminophen (Tylenol 325mg Tab) 650 mg PO STAT STA Stop: 01/18/18 04:48 Last Admin: 01/18/18 04:51 Dose: 650 mg MAR Pain/Vitals Document 01/18/18 04:51 MJ (Rec: 01/18/18 04:51 [id number] Pain Reassessment Is This A Pain ReAssessment? No Sleep Is patient sleeping during reassessment? No Presence of Pain Presence of Pain Yes Pain Scale Used Pain Scale Used Numeric Location Pain Location Body [employer]oph[employer] Rep Description Constant Intensity 7 Re-Assess: MAR Pain/Vitals Document 01/18/18 05:51 MJ (Rec: 01/18/18 07:08 MJ [id number]) Pain Reassessment Is This A Pain ReAssessment? Yes Sleep Is patient sleeping during reassessment? Yes Sodium Chloride (Sodium Chloride 0.9%) 1,000 mls @ 100 mls/hr IV .Q10H STA Stop: 01/14/18 12:59 Last Admin: 01/14/18 03:46 Dose: 100 mls/hr eMAR Start Stop Document 01/14/18 03:46 AD (Rec: 01/14/18 03:46 AD [id number]) Intravenous Solution Start Date 01/14/18 Start Time 03:46 Sodium Chloride (Sodium Chloride 0.9%) 1,000 mls @ 100 mls/hr IV .Q10H KRYS Last Admin: 01/16/18 12:31 Dose: 100 mls/hr eMAR Start Stop Document 01/16/18 12:31 EP (Rec: 01/16/18 12:31 EP [id number]) Intravenous Solution Start Date 01/16/18 Start Time 12:31 Morphine Sulfate (Morphine) 2 mg IVP STAT STA Stop: 01/14/18 03:01 Last Admin: 01/14/18 03:47 Dose: 2 mg MAR Pain Assessment Document 01/14/18 03:47 AD (Rec: 01/14/18 03:47 AD [id number]) Pain Reassessment Is this a pain reassessment? No Presence of Pain Presence of Pain Yes Pain Scale Used Pain Scale Used Numeric Description Intensity of Pain at present 8 Pain Behavior Moaning Facial Grimacing IVP Administration Document 01/14/18 03:47 AD (Rec: 01/14/18 03:47 AD [id number]) Charges for Administration # of IVP Administrations 1 Morphine Sulfate (Morphine) 2 mg IVP Q4H PRN PRN Reason: Pain, moderate (4-7) Last Admin: 01/14/18 04:31 Dose: 2 mg MAR Pain Assessment Document 01/14/18 04:31 AD (Rec: 01/14/18 04:33 AD [id number]) Pain Reassessment Is this a pain reassessment? No Presence of Pain Presence of Pain Yes Pain Scale Used Pain Scale Used Numeric Location Pain Location Body Site Abdomen Description Description Constant Intensity of Pain at present 7 Pain Behavior Facial Grimacing IVP Administration Document 01/14/18 04:31 AD (Rec: 01/14/18 04:33 AD [id number]) Charges for Administration # of IVP Administrations 1 Morphine Sulfate (Morphine) 2 mg IVP STAT STA Stop: 01/14/18 06:26 Last Admin: 01/14/18 06:39 Dose: 2 mg MAR Pain Assessment Document 01/14/18 06:39 AD (Rec: 01/14/18 06:39 AD [id number]) Pain Reassessment Is this a pain reassessment? No Presence of Pain Presence of Pain Yes Pain Scale Used Pain Scale Used Numeric Location Pain Location Body Site Abdomen Description Intensity of Pain at present 7 Pain Behavior Facial Grimacing IVP Administration Document 01/14/18 06:39 AD (Rec: 01/14/18 06:39 AD [id number]) Charges for Administration # of IVP Administrations 1 Morphine Sulfate (Morphine) 2 mg IVP Q4H PRN PRN Reason: Pain, moderate (4-7) Ondansetron HCl (Zofran Inj) 4 mg IVP STAT STA Stop: 01/14/18 03:01 Last Admin: 01/14/18 03:46 Dose: 4 mg IVP Administration Document 01/14/18 03:46 AD (Rec: 01/14/18 03:47 AD [id number]) Charges for Administration # of IVP Administrations 1 Pantoprazole Sodium (Protonix Inj) 40 mg IVP STAT STA Stop: 01/14/18 03:06 Last Admin: 01/14/18 03:47 Dose: 40 mg IVP Administration Document 01/14/18 03:47 AD (Rec: 01/14/18 03:47 AD [id number]) Charges for Administration # of IVP Administrations 1 Pneumococcal Polyvalent Vaccine (Pneumovax 23 Vaccine) 0.5 ml IM .ONCE ONE Stop: 01/14/18 15:29 Potassium Chloride (Potassium Chloride Oral Soln) 40 meq PO ONCE ONE Stop: 01/17/18 08:42 Last Admin: 01/17/18 09:50 Dose: 40 meq - Transfer of Care Patient signed out to Dr:: sheri will speak with hospitalist and dr hall - Alvaro Statement The provider has reviewed the documentation as recorded by the Alvaro Phan Provider Scribe Attestation: All medical record entries made by the Rodriibcharlene were at my direction and personally dictated by me. I have reviewed the chart and agree that the record accurately reflects my personal performance of the history, physical exam, medical decision making, and the department course for this patient. I have also personally directed, reviewed, and agree with the discharge instructions and disposition. Disposition/Present on Arrival - Present on Arrival Any Indicators Present on Arrival: No History of DVT/PE: No History of Uncontrolled Diabetes: No Urinary Catheter: No History of Decub. Ulcer: No History Surgical Site Infection Following: None - Disposition Have Diagnosis and Disposition been Completed?: Yes Diagnosis: Small bowel obstruction Disposition: HOSPITALIZED Disposition Time: 06:30 Condition: FAIR
[2018-01-14] MEDS ORDERED: Morphine 2 mg/ml ISec IVP PRN ×3 (04:20→08:45)
[2018-01-14 04:21] LABS: BASO # 0.04 K/mm3 (0.0-2.0); BASO % 0.3 % (0.0-3.0); EOS # 0.1 (0.0-0.7); EOS % 0.9 % (1.5-5.0); GRAN # 9.48 (1.4-6.5); GRAN % 78.5 % (50.0-68.0); HEMOGLOBIN 14.4 g/dL (14.0-18.0); LYMPH # 1.7 (1.2-3.4); MEAN CELL VOLUME 83.2 fl (80.0-105.0); MEAN CORPUSCULAR HEMOGLOBIN 28.7 pg (25.0-35.0); MEAN CORPUSCULAR HGB CONC 34.5 g/dl (31.0-37.0); MEAN PLATELET VOLUME 10.6 fl (7.0-11.0); MONO # 0.8 (0.1-0.6); MONO % 6.3 % (1.0-6.0); RBC 5.01 10^6/uL (3.5-6.1); RED CELL DISTRIBUTION WIDTH 13.3 % (11.5-14.5); WHITE BLOOD COUNT 12.1 10^3/ul (4.5-11.0)
[2018-01-14 04:26] LABS: ALB/GLOB RATIO 1.1 (1.1-1.8); ALBUMIN 4.3 g/dL (3.0-4.8); ALT/SGPT 28 U/L (7-56); AMYLASE 89 U/L (35-125); AST/SGOT 23 U/L (17-59); BLOOD UREA NITROGEN 21 mg/dL (7-21); CALCIUM 10.3 mg/dL (8.4-10.5); GFR AFRICAN-AMERICAN > 60; GFR NON-AFRICAN AMERICAN > 60; LIPASE 213 U/L (23-300)
[2018-01-14 04:31] LABS: INR 1.03 (0.93-1.08); PARTIAL THROMBOPLASTIN TIME 26.4 Seconds (25.1-36.5); PROTHROMBIN TIME 11.8 SECONDS (9.4-12.5)
[2018-01-14 04:37] LABS: TROPONIN I < 0.01 ng/mL
--- NOTE | 2018-01-14 05:18 | CT ---
EXAM: CT Abdomen and Pelvis Without Intravenous Contrast CLINICAL HISTORY: 62 years old, male; Pain; Abdominal pain; Generalized; Additional info: Abd pain TECHNIQUE: Axial computed tomography images of the abdomen and pelvis without intravenous contrast. All CT scans at this facility use one or more dose reduction techniques, viz.: automated exposure control; ma/kV adjustment per patient size (including targeted exams where dose is matched to indication; i.e. head); or iterative reconstruction technique. Coronal and sagittal reformatted images were created and reviewed. COMPARISON: CT - CHEST,ABD,PEL W/IV PO CONTRAST 2017-08-01 18:06 FINDINGS: Lower thorax: No acute findings. ABDOMEN: Liver: There are two right hepatic lobe hypodensities that cannot be further characterized on the current examination. Gallbladder and bile ducts: A calcified gallstone is present. No ductal dilation. Pancreas: Unremarkable. No ductal dilation. Spleen: Unremarkable. No splenomegaly. Adrenals: Unremarkable. No mass. Kidneys and ureters: There is a 2 mm nonobstructing stone in the lower pole of the right kidney.The right kidney is normal. Stomach and bowel: There are postsurgical changes consistent with colectomy. There are anastomotic sutures in the right midabdomen small bowel and at the rectal pouch. Moderate to severe fluid-filled distention of the proximal and mid small bowel measuring up to 4 cm. There is a transition point in the right midabdomen with decompressed distal small bowel consistent with small bowel obstruction likely secondary to adhesions. PELVIS: Bladder: Unremarkable. No stones. Reproductive: The prostate gland demonstrates mild hypertrophy. ABDOMEN and PELVIS: Intraperitoneal space: Unremarkable. No free air. No significant fluid collection. Bones/joints: No acute fracture. No dislocation. Soft tissues: There is a small hernia in the right lateral abdominal wall. Coronal image 24, series 601. Vasculature: The vasculature demonstrates diffuse mild atherosclerotic calcification. No abdominal aortic aneurysm. Lymph nodes: Unremarkable. No enlarged lymph nodes. IMPRESSION: Mid to distal small bowel obstruction with transition point in the right midabdomen likely secondary to adhesions. Status post colectomy. Right lateral abdominal wall hernia containing short segment of bowel. Gallstone. Nonobstructing left renal stone. Mild prostate hypertrophy. Too small to characterize liver hypodensities probably cysts. No followup necessary.
[2018-01-14 06:52] LABS: URINE BILIRUBIN NEGATIVE (NEGATIVE); URINE BLOOD NEGATIVE (NEGATIVE); URINE GLUCOSE (UA) NEGATIVE (NEGATIVE); URINE LEUKOCYTE ESTERASE NEGATIVE Leu/uL (NEGATIVE); URINE PROTEIN NEGATIVE mg/dL (<30 mg/dL); URINE UROBILINOGEN 0.2 E.U./dL (<1 E.U./dL)
[2018-01-14 06:56] LABS: URINE APPEARANCE CLEAR (CLEAR); URINE COLOR YELLOW (YELLOW)
[2018-01-14] MEDS ORDERED: Vitamins A & D Oint UD Foilpak TOP PRN (06:57)
[2018-01-14] MEDS: Sodium Chloride 0.9% 1,000 ML IV SCH ×2 (07:02→22:55)
--- NOTE | 2018-01-14 08:28 | CP.PCM.CON ---
History of Present Illness - History of Present Illness History of Present Illness: Surgery: Dr. Leone CC: Abd pain HPI: 62M w. pmh of Crohn's s/p proctocolectomy w. J pouch 2011 at [facility], presents w. worsening abd pain. Pain started yesterday at 5 PM. Pain is diffuse , constant, w. no alleviating/aggravating factors. Pt denies N/V. Pt has not had BM/Flatus since yesterday. He does not have appetite. He denies F/C, no REED/ blurred vision, no CP/palpitations, no SOB/cough, no weakness. CT done in ED showed signs consistent w. SBO PMH: Crohn's PSH: Colectomy and J pouch, inguinal hernia NKDA Meds: Entyvio Social: No Tobacco/drugs, social ETOH Fhx: Non-contributory Review of Systems - Review of Systems All systems: reviewed and no additional remarkable complaints except (HPI) Past Patient History - Infectious Disease Hx of Infectious Diseases: None - Past Medical History & Family History Past Medical History?: Yes - Past Social History Smoking Status: Never Smoked - CARDIAC Hx Cardiac Disorders: No - PULMONARY Hx Respiratory Disorders: No - NEUROLOGICAL Hx Neurological Disorder: No Hx Paralysis: No - HEENT Hx HEENT Problems: Yes Hx Cataracts: Yes (bilat iol) - RENAL Hx Kidney Stones: Yes Other/Comment: ELEVATED PSA - ENDOCRINE/METABOLIC Hx Endocrine Disorders: No - HEMATOLOGICAL/ONCOLOGICAL Hx Blood Transfusions: No Hx Blood Transfusion Reaction: No - INTEGUMENTARY Hx Dermatological Problems: No - MUSCULOSKELETAL/RHEUMATOLOGICAL Hx Musculoskeletal Disorders: No - GASTROINTESTINAL Hx Gastrointestinal Disorders: Yes (ulcerative colitis) Hx Bowel Surgery: Yes (colectomy) Hx Crohn's Disease: Yes - GENITOURINARY/GYNECOLOGICAL Hx Genitourinary Disorders: Yes (elevated psa) Hx Prostate Problems: Yes - PSYCHIATRIC Hx Emotional Abuse: No Hx Physical Abuse: No Hx Substance Use: No - SURGICAL HISTORY Hx Cardiac Catheterization: Yes (aug 2014 just routine asymtomatic per pt negative) Other/Comment: TURP and colectomy 2011 - ANESTHESIA Hx Anesthesia: Yes Hx Anesthesia Reactions: No Hx Malignant Hyperthermia: No Meds Allergies/Adverse Reactions: Allergies Allergy/AdvReac Type Severity Reaction Status Date / Time No Known Allergies Allergy Verified 07/28/17 21:54 - Medications Medications: Current Medications Sodium Chloride (Sodium Chloride 0.9%) 1,000 mls @ 100 mls/hr IV .Q10H STA Stop: 01/14/18 12:59 Last Admin: 01/14/18 03:46 Dose: 100 mls/hr Sodium Chloride (Sodium Chloride 0.9%) 1,000 mls @ 100 mls/hr IV .Q10H KRYS Last Admin: 01/14/18 07:02 Dose: 100 mls/hr Morphine Sulfate (Morphine) 2 mg IVP Q4H PRN PRN Reason: Pain, moderate (4-7) Ondansetron HCl (Zofran Inj) 4 mg IVP Q4H PRN PRN Reason: Nausea/Vomiting Pantoprazole Sodium (Protonix Inj) 40 mg IVP DAILY [facility] Vitamin A (Vitamin A & D Oint Ud Foilpak) 1 ea TOP Q2 PRN PRN Reason: Dry mouth Physical Exam - Constitutional Appears: Non-toxic, No Acute Distress - Head Exam Head Exam: ATRAUMATIC, NORMOCEPHALIC - Eye Exam Eye Exam: EOMI - ENT Exam ENT Exam: Mucous Membranes Moist - Neck Exam Neck exam: Positive for: Full Rom - Respiratory Exam Respiratory Exam: NORMAL BREATHING PATTERN. absent: Accessory Muscle Use, Respiratory Distress - GI/Abdominal Exam GI & Abdominal Exam: Distended, Soft, Tenderness (diffuse). absent: Firm, Guarding, Hernia, Rebound, Rigid - Extremities Exam Extremities exam: Negative for: calf tenderness, pedal edema - Neurological Exam Neurological exam: Alert, Oriented x3 - Psychiatric Exam Psychiatric exam: Normal Affect, Normal Mood - Skin Skin Exam: Dry, Warm Results - Vital Signs Recent Vital Signs: Last Vital Signs Temp 97.8 F 01/14/18 08:04 Pulse 68 01/14/18 08:04 Resp 18 01/14/18 08:04 BP 127/76 01/14/18 08:04 Pulse Ox 98 01/14/18 08:04 - Labs Result Diagrams: 01/14/18 04:08 01/14/18 04:08 - Imaging and Cardiology CT scan - abdomen Status: Image reviewed by me, Report reviewed by me Assessment & Plan - Assessment and Plan (Free Text) Assessment: 62M w. hx of crohn's s/p proctocolectomy w. J fina, presenting w. SBO Plan: -NPO w. ice chips -IVF -pain management -serial abd exams -will place NGT if symptoms worsen -d/w attending Jovi PGY3
--- NOTE | 2018-01-14 09:16 | RAD ---
HISTORY: Abdominal Pain/SBO COMPARISON: 07/31/2017 FINDINGS: LUNGS: No active pulmonary disease. PLEURA: No significant pleural effusion identified, no pneumothorax apparent. CARDIOVASCULAR: Normal. OSSEOUS STRUCTURES: No significant abnormalities. VISUALIZED UPPER ABDOMEN: Normal. OTHER FINDINGS: None. IMPRESSION: No active disease.
[2018-01-14] MEDS: Enoxaparin 30 mg Syringe SC SCH (12:11)
--- NOTE | 2018-01-14 12:18 | CARD ---
APPROVED REPORT EKG Measurement Heart [id number] <Conclusion> Normal sinus rhythm Possible Left atrial enlargement Incomplete right bundle branch block
--- NOTE | 2018-01-14 15:10 | CP.PCM.HP ---
<Kodak Leone - Last Filed: 01/14/18 15:00> History of Present Illness - History of Present Illness History of Present Illness: Mr. Acosta is a 62 year old male with a past medical history significant for BPH , Ulcerative Colitis, Crohn's disease, GIB, gastric ulcer, and iron deficiency anemia who presents with one day of worsening diffuse sharp abdominal pain that is constant and failure to pass flatus or stool. He reports that this all started yesterday at approximately 1700 with no inciting event. He reports that he usually has 9-10 loose BM's per day and for him to go this long without a BM is highly abnormal. He denies any changes in his diet recently. He also denies fever, chills, headache, dysphagia, chest pain, palpitations, SOB, cough, sputum production, N/V/D/C, melena, hematochezia, hematemesis, dysuria, hematuria, skin changes or any numbness/tingling/weakness of any extremity. Patient had a CT abdomen/pelvis done in the ED which showed mid to distal SBO with transition point in the right midabdomen. PMH: BPH, Ulcerative Colitis, Crohn's disease, GIB, gastric ulcer, Chronic iron- def anemia PSH: TURP, prostate biopsy, Colectomy 2011, Left cardiac cath 2013, Bl cataracts Family: Denies Social: Denies tobacco or illicit drug use; Endorses social alcohol consumption ; Lives at home with family; Ambulates without assistance Allergies: NKDA Home Medications: As per MAR Present on Admission - Present on Admission Any Indicators Present on Admission: No Review of Systems - Review of Systems Review of Systems: As per HPI, otherwise negative Past Patient History - Infectious Disease Hx of Infectious Diseases: None - Past Medical History & Family History Past Medical History?: Yes - Past Social History Smoking Status: Never Smoked - CARDIAC Hx Cardiac Disorders: No - PULMONARY Hx Respiratory Disorders: No - NEUROLOGICAL Hx Neurological Disorder: No Hx Paralysis: No - HEENT Hx HEENT Problems: Yes Hx Cataracts: Yes (bilat iol) - RENAL Hx Kidney Stones: Yes Other/Comment: ELEVATED PSA - ENDOCRINE/METABOLIC Hx Endocrine Disorders: No - HEMATOLOGICAL/ONCOLOGICAL Hx Blood Transfusions: No Hx Blood Transfusion Reaction: No - INTEGUMENTARY Hx Dermatological Problems: No - MUSCULOSKELETAL/RHEUMATOLOGICAL Hx Musculoskeletal Disorders: No - GASTROINTESTINAL Hx Gastrointestinal Disorders: Yes (ulcerative colitis) Hx Bowel Surgery: Yes (colectomy) Hx Crohn's Disease: Yes - GENITOURINARY/GYNECOLOGICAL Hx Genitourinary Disorders: Yes (elevated psa) Hx Prostate Problems: Yes - PSYCHIATRIC Hx Emotional Abuse: No Hx Physical Abuse: No Hx Substance Use: No - SURGICAL HISTORY Hx Cardiac Catheterization: Yes (aug 2014 just routine asymtomatic per pt negative) Other/Comment: TURP and colectomy 2011 - ANESTHESIA Hx Anesthesia: Yes Hx Anesthesia Reactions: No Hx Malignant Hyperthermia: No Meds Allergies/Adverse Reactions: Allergies Allergy/AdvReac Type Severity Reaction Status Date / Time No Known Allergies Allergy Verified 01/14/18 11:54 Physical Exam - Constitutional Appears: Non-toxic, No Acute Distress - Head Exam Head Exam: ATRAUMATIC, NORMOCEPHALIC - Eye Exam Eye Exam: EOMI, Normal appearance, PERRL Pupil Exam: NORMAL ACCOMODATION, PERRL - ENT Exam ENT Exam: Mucous Membranes Moist, Normal Exam - Neck Exam Neck exam: Positive for: Full Rom, Normal Inspection. Negative for: Lymphadenopathy - Respiratory Exam Respiratory Exam: Clear to Auscultation Bilateral, NORMAL BREATHING PATTERN. absent: Accessory Muscle Use, Chest Wall Tenderness, Decreased Breath Sounds, Prolonged Expiratory Phase, Rales, Rhonchi, Wheezes, Respiratory Distress, Stridor - Cardiovascular Exam Cardiovascular Exam: REGULAR RHYTHM, RRR, +S1, +S2. absent: Bradycardia, Tachycardia, Clicks, Diastolic murmur, Gallop, Irregular Rhythm, JVD, Rubs, +S4 , Systolic Murmur - GI/Abdominal Exam GI & Abdominal Exam: Normal Bowel Sounds, Soft, Tenderness (Diffusely TTP). absent: Bruit, Diminished Bowel Sounds, Distended, Firm, Guarding, Hernia, Hyperactive Bowel Sounds, Hypoactive Bowel Sounds, Mass, Organomegaly, Pulsatile Mass, Rebound, Rigid - Extremities Exam Extremities exam: Positive for: full ROM, normal capillary refill, normal inspection, pedal pulses present. Negative for: calf tenderness, joint swelling , pedal edema, tenderness - Back Exam Back exam: NORMAL INSPECTION - Neurological Exam Neurological exam: Alert, CN II-XII Intact, Normal Gait, Oriented x3, Reflexes Normal - Psychiatric Exam Psychiatric exam: Normal Affect, Normal Mood - Skin Skin Exam: Dry, Intact, Normal Color, Warm Results - Vital Signs Recent Vital Signs: Last Vital Signs Temp 98.7 F 03/19/18 09:30 Pulse 71 01/14/18 09:30 Resp 18 01/14/18 09:30 BP 118/79 01/14/18 09:30 Pulse Ox 98 01/14/18 09:30 - Labs Result Diagrams: 01/14/18 04:08 01/14/18 04:08 Assessment & Plan - Assessment and Plan (Free Text) Assessment: 62 year old male with a past medical history significant for BPH, Ulcerative Colitis, Crohn's disease, GIB, gastric ulcer, and iron deficiency anemia who presents with one day of worsening diffuse sharp abdominal pain that is constant and failure to pass flatus or stool. Patient had a CT abdomen/pelvis done in the ED which showed mid to distal SBO with transition point in the right midabdomen. Plan: 1. SBO -CT Abdomen/Pelvis showed mid to distal SBO with transition point in the right midabdomen -Reglan 5mg IVP Q8 and Morphine 4mg IVP Q4H PRN for pain control -Zofran 4mg IVP Q4H PRN for N/V -Normal Saline at 100mls/hr -NPO Diet (with ice chips) -Will consider NGT should symptoms worsen or persist -Surgery consulted, all recommendations appreciated GI Prophylaxis: Protonix DVT Prophylaxis: Lovenox and SCD's Patient seen and case discussed with attending, Dr. Valdez. - Date & Time Date: 01/14/18 Time: 15:11 Decision To Admit - Pt Status Changed To: Hospital Disposition Of: Inpatient Admission - Admit Certification Admit to Inpatient:: After my assessment, the patient will require hospitalization for at least two midnights. This is because of the severity of symptoms shown, intensity of services needed, and/or the medical risk in this patient being treated as an outpatient. - . Bed Request Type: Med/Surg <Javier Valdez - Last Filed: 01/14/18 16:20> Results - Vital Signs Recent Vital Signs: Last Vital Signs Temp 98.7 F 01/14/18 14:40 Pulse 71 01/14/18 14:40 Resp 18 01/14/18 14:40 BP 118/79 01/14/18 14:40 Pulse Ox 96 01/14/18 14:00 - Labs Result Diagrams: 01/14/18 04:08 01/14/18 04:08 Attending/Attestation - Attestation I have personally seen and examined this patient.: Yes I have fully participated in the care of the patient.: Yes I have reviewed all pertinent clinical information: Yes Notes (Text): 01/14/18 16:15 Attending note; Patient seen and examined with resident. Patient is a 62 year old male with a past medical history significant for Crohn 's disease, colectomy, gastric ulcer, BPH and iron deficiency anemia who presents with one day of worsening diffuse sharp abdominal pain. Abdomen is mildly distended. CT abdomen and pelvis showed mild to distal small bowel obstruction with transition point in the right mid abdomen. Patient was evaluated by surgery. Nothing by mouth. IV fluids. Will consider NG tube placement if patient continues to have abdominal distention, nausea, vomiting. Monitor for bowel movement. Pain control with morphine when necessary only. GI prophylaxis with Protonix. Lovenox for DVT prophylaxis. We'll follow up closely with surgery. upOn discharge the patient will follow-up with PMD Dr. Lindo. 01/14/18 16:20
[2018-01-14] MEDS ORDERED: Influenza Vaccine 60 mcg/0.5 mL SYR (4YR UP) IM ONE (15:28)
[2018-01-14] MEDS ORDERED: Pneumococcal 23-Valent Vaccine IM ONE (15:28)
[2018-01-15] MEDS: Sodium Chloride 0.9% 1,000 ML IV SCH ×2 (06:06→17:26)
[2018-01-15 07:27] LABS: BASO # 0.02 K/mm3 (0.0-2.0); BASO % 0.2 % (0.0-3.0); EOS # 0.1 (0.0-0.7); EOS % 0.8 % (1.5-5.0); GRAN # 6.48 (1.4-6.5); GRAN % 67.3 % (50.0-68.0); HEMOGLOBIN 13.9 g/dL (14.0-18.0); LYMPH # 1.6 (1.2-3.4); LYMPH % 16.4 % (22.0-35.0); MEAN CELL VOLUME 82.3 fl (80.0-105.0); MEAN CORPUSCULAR HEMOGLOBIN 28.5 pg (25.0-35.0); MEAN CORPUSCULAR HGB CONC 34.7 g/dl (31.0-37.0); MEAN PLATELET VOLUME 10.3 fl (7.0-11.0); MONO # 1.5 (0.1-0.6); MONO % 15.3 % (1.0-6.0); RBC 4.87 10^6/uL (3.5-6.1); WHITE BLOOD COUNT 9.6 10^3/ul (4.5-11.0)
[2018-01-15 08:08] LABS: ALB/GLOB RATIO 1.1 (1.1-1.8); ALBUMIN 3.6 g/dL (3.0-4.8); ALT/SGPT 25 U/L (7-56); AST/SGOT 20 U/L (17-59); BLOOD UREA NITROGEN 12 mg/dL (7-21); CALCIUM 9.1 mg/dL (8.4-10.5); GFR AFRICAN-AMERICAN > 60; GFR NON-AFRICAN AMERICAN > 60
--- NOTE | 2018-01-15 09:39 | CP.PCM.PN ---
Subjective - Date & Time of Evaluation Date of Evaluation: 01/15/18 Time of Evaluation: 09:37 - Subjective Subjective: Surgery: Dr. Leone Pt seen and examined. Pain improved. Passing flatus, +BM. would like to eat. Objective - Vital Signs/Intake and Output Vital Signs (last 24 hours): Temp Pulse Resp BP Pulse Ox 98.5 F 72 20 121/76 95 01/15/18 07:27 01/15/18 07:27 01/15/18 07:27 01/15/18 07:27 01/15/18 07:27 Intake and Output: 01/15/18 01/15/18 06:59 18:59 Intake Total 1200 Balance 1200 - Medications Medications: Current Medications Enoxaparin Sodium (Lovenox) 30 mg SC DAILY [facility] PRN Reason: Protocol Last Admin: 01/14/18 12:11 Dose: 30 mg Sodium Chloride (Sodium Chloride 0.9%) 1,000 mls @ 100 mls/hr IV .Q10H [facility] Last Admin: 01/15/18 06:06 Dose: 100 mls/hr Metoclopramide HCl (Reglan) 5 mg IVP Q8 [facility] Last Admin: 01/15/18 06:00 Dose: 5 mg Morphine Sulfate (Morphine) 4 mg IVP Q4H PRN PRN Reason: Pain, moderate (4-7) Ondansetron HCl (Zofran Inj) 4 mg IVP Q4H PRN PRN Reason: Nausea/Vomiting Pantoprazole Sodium (Protonix Inj) 40 mg IVP DAILY [facility] Last Admin: 01/14/18 12:10 Dose: 40 mg Vitamin A (Vitamin A & D Oint Ud Foilpak) 1 ea TOP Q2 PRN PRN Reason: Dry mouth - Labs Labs: 01/15/18 07:00 01/15/18 07:00 PT 11.8 SECONDS (9.4-12.5) 01/14/18 04:08 INR 1.03 (0.93-1.08) 01/14/18 04:08 APTT 26.4 Seconds (25.1-36.5) 01/14/18 04:08 - Constitutional Appears: Non-toxic, No Acute Distress - Head Exam Head Exam: ATRAUMATIC, NORMOCEPHALIC - Eye Exam Eye Exam: EOMI - ENT Exam ENT Exam: Mucous Membranes Moist - Neck Exam Neck Exam: Full ROM - Respiratory Exam Respiratory Exam: NORMAL BREATHING PATTERN. absent: Accessory Muscle Use, Respiratory Distress - GI/Abdominal Exam GI & Abdominal Exam: Soft. absent: Distended, Firm, Guarding, Rigid, Tenderness , Rebound - Extremities Exam Extremities Exam: absent: Calf Tenderness, Pedal Edema - Neurological Exam Neurological Exam: Alert, Awake, Oriented x3 Assessment and Plan - Assessment and Plan (Free Text) Assessment: 62M w. SBO, resolving Plan: -will start CLD -ADAT -serial abd exams -d/w attending Zemaitis PGY3
[2018-01-15] MEDS: Enoxaparin 30 mg Syringe SC SCH (11:04)
--- NOTE | 2018-01-15 15:07 | CP.PCM.PN ---
<Kodak Leone - Last Filed: 01/15/18 15:03> Subjective - Date & Time of Evaluation Date of Evaluation: 01/15/18 Time of Evaluation: 15:03 - Subjective Subjective: Medicine Progress Note: Patient seen and assessed at bedside. No acute events overnight reported by patient or nursing staff. Patient reports that his abdominal pain has significantly improved since yesterday and also reports that he had multiple bowel movements over night and through the morning. He denies any other complaints at this time including fever, chills, headache, chest pain, SOB, N/V/ D/C, pain with urination, skin changes or any numbness/tingling/weakness of any extremity. Objective - Vital Signs/Intake and Output Vital Signs (last 24 hours): Temp Pulse Resp BP Pulse Ox 98.2 F 68 20 101/65 97 01/15/18 13:46 01/15/18 13:46 01/15/18 13:46 01/15/18 13:46 01/15/18 13:46 Intake and Output: 01/15/18 01/15/18 06:59 18:59 Intake Total 1200 780 Balance 1200 780 - Medications Medications: Current Medications Enoxaparin Sodium (Lovenox) 30 mg SC DAILY [facility] PRN Reason: Protocol Last Admin: 01/15/18 11:04 Dose: Not Given Sodium Chloride (Sodium Chloride 0.9%) 1,000 mls @ 100 mls/hr IV .Q10H [facility] Last Admin: 01/15/18 06:06 Dose: 100 mls/hr Metoclopramide HCl (Reglan) 5 mg IVP Q8 [facility] Last Admin: 01/15/18 06:00 Dose: 5 mg Morphine Sulfate (Morphine) 4 mg IVP Q4H PRN PRN Reason: Pain, moderate (4-7) Ondansetron HCl (Zofran Inj) 4 mg IVP Q4H PRN PRN Reason: Nausea/Vomiting Pantoprazole Sodium (Protonix Inj) 40 mg IVP DAILY [facility] Last Admin: 01/15/18 11:04 Dose: 40 mg Vitamin A (Vitamin A & D Oint Ud Foilpak) 1 ea TOP Q2 PRN PRN Reason: Dry mouth - Labs Labs: 01/15/18 07:00 01/15/18 07:00 PT 11.8 SECONDS (9.4-12.5) 01/14/18 04:08 INR 1.03 (0.93-1.08) 01/14/18 04:08 APTT 26.4 Seconds (25.1-36.5) 01/14/18 04:08 - Constitutional Appears: Non-toxic, No Acute Distress - Head Exam Head Exam: ATRAUMATIC, NORMOCEPHALIC - Eye Exam Eye Exam: EOMI, Normal appearance Pupil Exam: NORMAL ACCOMODATION, PERRL - ENT Exam ENT Exam: Mucous Membranes Moist, Normal Exam - Neck Exam Neck Exam: Full ROM, Normal Inspection. absent: Lymphadenopathy - Respiratory Exam Respiratory Exam: Clear to Ausculation Bilateral, NORMAL BREATHING PATTERN - Cardiovascular Exam Cardiovascular Exam: REGULAR RHYTHM, RRR, +S1, +S2 - GI/Abdominal Exam GI & Abdominal Exam: Soft, Tenderness (Mild TTP diffusely; Improved since previous examination), Normal Bowel Sounds. absent: Bruit, Distended, Firm, Guarding, Rigid, Diminished Bowel Sounds, Hernia, Hyperactive Bowel Sounds, Hypoactive Bowel Sounds, Mass, Organomegaly, Pulsatile Mass, Rebound - Extremities Exam Extremities Exam: Full ROM, Normal Capillary Refill, Normal Inspection. absent : Calf Tenderness, Joint Swelling, Pedal Edema, Tenderness - Neurological Exam Neurological Exam: Alert, Awake, CN II-XII Intact, Normal Gait, Oriented x3 - Psychiatric Exam Psychiatric exam: Normal Affect, Normal Mood - Skin Skin Exam: Dry, Intact, Normal Color, Warm Assessment and Plan - Assessment and Plan (Free Text) Assessment: 62 year old male with a past medical history significant for BPH, Ulcerative Colitis, Crohn's disease, GIB, gastric ulcer, and iron deficiency anemia who presents with one day of worsening diffuse sharp abdominal pain that is constant and failure to pass flatus or stool. Patient had a CT abdomen/pelvis done in the ED which showed mid to distal SBO with transition point in the right midabdomen. Patient reports that he has significant reduction in his abdominal pain and also reports passing multiple BM's overnight. Plan: 1. SBO -CT Abdomen/Pelvis showed mid to distal SBO with transition point in the right midabdomen -Continue Reglan 5mg IVP Q8 and Morphine 4mg IVP Q4H PRN for pain control -Continue Zofran 4mg IVP Q4H PRN for N/V -Continue Normal Saline at 100mls/hr -Clear liquid diet and will advance as tolerated -Surgery consulted, all recommendations appreciated GI Prophylaxis: Protonix DVT Prophylaxis: Lovenox and SCD's Patient seen and case discussed with attending, Dr. Valdez. <Javier Valdez - Last Filed: 01/15/18 16:18> Objective - Vital Signs/Intake and Output Vital Signs (last 24 hours): Temp Pulse Resp BP Pulse Ox 98.2 F 68 20 101/65 97 01/15/18 13:46 01/15/18 13:46 01/15/18 13:46 01/15/18 13:46 01/15/18 13:46 Intake and Output: 01/15/18 01/15/18 06:59 18:59 Intake Total 1200 780 Balance 1200 780 - Medications Medications: Current Medications Enoxaparin Sodium (Lovenox) 30 mg SC DAILY [facility] PRN Reason: Protocol Last Admin: 01/15/18 11:04 Dose: Not Given Sodium Chloride (Sodium Chloride 0.9%) 1,000 mls @ 100 mls/hr IV .Q10H [facility] Last Admin: 01/15/18 06:06 Dose: 100 mls/hr Metoclopramide HCl (Reglan) 5 mg IVP Q8 [facility] Last Admin: 01/15/18 06:00 Dose: 5 mg Morphine Sulfate (Morphine) 4 mg IVP Q4H PRN PRN Reason: Pain, moderate (4-7) Ondansetron HCl (Zofran Inj) 4 mg IVP Q4H PRN PRN Reason: Nausea/Vomiting Pantoprazole Sodium (Protonix Inj) 40 mg IVP DAILY [facility] Last Admin: 01/15/18 11:04 Dose: 40 mg Vitamin A (Vitamin A & D Oint Ud Foilpak) 1 ea TOP Q2 PRN PRN Reason: Dry mouth - Labs Labs: 01/15/18 07:00 01/15/18 07:00 PT 11.8 SECONDS (9.4-12.5) 01/14/18 04:08 INR 1.03 (0.93-1.08) 01/14/18 04:08 APTT 26.4 Seconds (25.1-36.5) 01/14/18 04:08 Attending/Attestation - Attestation I have personally seen and examined this patient.: Yes I have fully participated in the care of the patient.: Yes I have reviewed all pertinent clinical information, including history, physical exam and plan: Yes Notes (Text): 01/15/18 16:13 Attending note; Patient seen and examined with resident. Patient is a 62 year old male with a past medical history significant for Crohn 's disease, colectomy, gastric ulcer, BPH and iron deficiency anemia who presents with one day of worsening diffuse sharp abdominal pain. CT abdomen and pelvis showed mild to distal small bowel obstruction with transition point in the right mid abdomen. patient had few [facility] yesterday. Abdomen is much softer. Started on clear liquid diet. Monitor closely. surgery evaluation Appreciated. GI prophylaxis with Protonix. Lovenox for DVT prophylaxis. upon discharge the patient will follow-up with PMD Dr. Lindo. Patient will follow-up with his primary GI upon discharge. 01/15/18 16:15
[2018-01-16 07:39] LABS: BASO # 0.03 K/mm3 (0.0-2.0); BASO % 0.5 % (0.0-3.0); EOS # 0.1 (0.0-0.7); EOS % 1.9 % (1.5-5.0); GRAN # 3.49 (1.4-6.5); GRAN % 56.1 % (50.0-68.0); HEMOGLOBIN 13.3 g/dL (14.0-18.0); LYMPH # 1.4 (1.2-3.4); LYMPH % 22.5 % (22.0-35.0); MEAN CELL VOLUME 82.5 fl (80.0-105.0); MEAN CORPUSCULAR HEMOGLOBIN 28.4 pg (25.0-35.0); MEAN CORPUSCULAR HGB CONC 34.5 g/dl (31.0-37.0); MEAN PLATELET VOLUME 10.5 fl (7.0-11.0); MONO # 1.2 (0.1-0.6); RBC 4.68 10^6/uL (3.5-6.1); RED CELL DISTRIBUTION WIDTH 13.1 % (11.5-14.5); WHITE BLOOD COUNT 6.2 10^3/ul (4.5-11.0)
[2018-01-16 07:55] LABS: ALB/GLOB RATIO 1.1 (1.1-1.8); ALBUMIN 3.5 g/dL (3.0-4.8); ALT/SGPT 28 U/L (7-56); AST/SGOT 23 U/L (17-59); BLOOD UREA NITROGEN 11 mg/dL (7-21); CALCIUM 9.2 mg/dL (8.4-10.5); GFR AFRICAN-AMERICAN > 60; GFR NON-AFRICAN AMERICAN > 60
[2018-01-16] MEDS: Enoxaparin 30 mg Syringe SC SCH (10:22)
--- NOTE | 2018-01-16 11:09 | CP.PCM.PN ---
Subjective - Date & Time of Evaluation Date of Evaluation: 01/16/18 Time of Evaluation: 11:06 - Subjective Subjective: Surgery: Dr. Leone Pt seen and examined. Diet was advanced to regular yesterday. Pt had complaints of increased abd pain this AM. He is still passing flatus and having BM. No nausea or vomiting. Objective - Vital Signs/Intake and Output Vital Signs (last 24 hours): Temp Pulse Resp BP Pulse Ox 98.8 F 63 20 120/76 97 01/16/18 07:37 01/16/18 07:37 01/16/18 07:37 01/16/18 07:37 01/16/18 07:37 Intake and Output: 01/16/18 01/16/18 06:59 18:59 Intake Total 1620 Balance 1620 - Medications Medications: Current Medications Enoxaparin Sodium (Lovenox) 30 mg SC DAILY [facility] PRN Reason: Protocol Last Admin: 01/16/18 10:22 Dose: Not Given Sodium Chloride (Sodium Chloride 0.9%) 1,000 mls @ 100 mls/hr IV .Q10H [facility] Last Admin: 01/15/18 17:26 Dose: 100 mls/hr Metoclopramide HCl (Reglan) 5 mg IVP Q8 [facility] Last Admin: 01/16/18 06:22 Dose: 5 mg Morphine Sulfate (Morphine) 4 mg IVP Q4H PRN PRN Reason: Pain, moderate (4-7) Ondansetron HCl (Zofran Inj) 4 mg IVP Q4H PRN PRN Reason: Nausea/Vomiting Pantoprazole Sodium (Protonix Inj) 40 mg IVP DAILY [facility] Last Admin: 01/16/18 10:04 Dose: 40 mg Vitamin A (Vitamin A & D Oint Ud Foilpak) 1 ea TOP Q2 PRN PRN Reason: Dry mouth - Labs Labs: 01/16/18 06:50 01/16/18 06:50 PT 11.8 SECONDS (9.4-12.5) 01/14/18 04:08 INR 1.03 (0.93-1.08) 01/14/18 04:08 APTT 26.4 Seconds (25.1-36.5) 01/14/18 04:08 - Constitutional Appears: Non-toxic, No Acute Distress - Head Exam Head Exam: ATRAUMATIC, NORMOCEPHALIC - Eye Exam Eye Exam: EOMI - ENT Exam ENT Exam: Mucous Membranes Moist - Neck Exam Neck Exam: Full ROM - Respiratory Exam Respiratory Exam: NORMAL BREATHING PATTERN. absent: Accessory Muscle Use, Respiratory Distress - GI/Abdominal Exam GI & Abdominal Exam: Soft, Tenderness. absent: Distended, Firm, Guarding, Rigid - Extremities Exam Extremities Exam: absent: Calf Tenderness, Pedal Edema - Neurological Exam Neurological Exam: Alert, Awake, Oriented x3 Assessment and Plan - Assessment and Plan (Free Text) Assessment: 62M w. SBO, pain worsening -Will put pt on CLD -serial abd exams -ADAT -will d.w attending Zemaitis PGY3
--- NOTE | 2018-01-16 12:00 | CP.PCM.PN ---
<LeoneKodak - Last Filed: 01/16/18 11:56> Subjective - Date & Time of Evaluation Date of Evaluation: 01/16/18 Time of Evaluation: 11:59 - Subjective Subjective: Medicine Progress Note: Patient seen and assessed at bedside. No acute events overnight reported by patient or nursing staff. Patient reports that his abdominal pain has significantly improved and that he has had multiple bowel movements. He does however report that he did not tolerate his regular diet for dinner, specifically reporting that he had difficulty with the chicken which caused him to have abdominal pain that has since mostly resolved. He denies any other complaints at this time including fever, chills, headache, chest pain, SOB, N/V/ D/C, pain with urination, skin changes or any numbness/tingling/weakness of any extremity. Objective - Vital Signs/Intake and Output Vital Signs (last 24 hours): Temp Pulse Resp BP Pulse Ox 98.8 F 63 20 120/76 97 01/16/18 07:37 01/16/18 07:37 01/16/18 07:37 01/16/18 07:37 01/16/18 07:37 Intake and Output: 01/16/18 01/16/18 06:59 18:59 Intake Total 1620 Balance 1620 - Medications Medications: Current Medications Enoxaparin Sodium (Lovenox) 30 mg SC DAILY [facility] PRN Reason: Protocol Last Admin: 01/16/18 10:22 Dose: Not Given Sodium Chloride (Sodium Chloride 0.9%) 1,000 mls @ 100 mls/hr IV .Q10H [facility] Last Admin: 01/15/18 17:26 Dose: 100 mls/hr Metoclopramide HCl (Reglan) 5 mg IVP Q8 [facility] Last Admin: 01/16/18 06:22 Dose: 5 mg Morphine Sulfate (Morphine) 4 mg IVP Q4H PRN PRN Reason: Pain, moderate (4-7) Ondansetron HCl (Zofran Inj) 4 mg IVP Q4H PRN PRN Reason: Nausea/Vomiting Pantoprazole Sodium (Protonix Inj) 40 mg IVP DAILY [facility] Last Admin: 01/16/18 10:04 Dose: 40 mg Vitamin A (Vitamin A & D Oint Ud Foilpak) 1 ea TOP Q2 PRN PRN Reason: Dry mouth - Labs Labs: 01/16/18 06:50 01/16/18 06:50 PT 11.8 SECONDS (9.4-12.5) 01/14/18 04:08 INR 1.03 (0.93-1.08) 01/14/18 04:08 APTT 26.4 Seconds (25.1-36.5) 01/14/18 04:08 - Constitutional Appears: Non-toxic, No Acute Distress - Head Exam Head Exam: ATRAUMATIC, NORMOCEPHALIC - Eye Exam Eye Exam: EOMI, Normal appearance Pupil Exam: NORMAL ACCOMODATION, PERRL - ENT Exam ENT Exam: Mucous Membranes Moist, Normal Exam - Neck Exam Neck Exam: Full ROM, Normal Inspection. absent: Lymphadenopathy - Respiratory Exam Respiratory Exam: Clear to Ausculation Bilateral, NORMAL BREATHING PATTERN. absent: Accessory Muscle Use, Chest Wall Tenderness, Decreased Breath Sounds, Prolonged Expiratory Phase, Rales, Rhonchi, Wheezes, Respiratory Distress, Stridor - Cardiovascular Exam Cardiovascular Exam: REGULAR RHYTHM, RRR, +S1, +S2. absent: Bradycardia, Tachycardia, Clicks, Diastolic murmur, Gallop, Irregular Rhythm, JVD, Rubs, +S4 , Murmur - GI/Abdominal Exam GI & Abdominal Exam: Soft, Normal Bowel Sounds. absent: Distended, Firm, Guarding, Rigid, Tenderness, Rebound - Extremities Exam Extremities Exam: Full ROM, Normal Capillary Refill, Normal Inspection. absent : Calf Tenderness, Joint Swelling, Pedal Edema, Tenderness - Back Exam Back Exam: NORMAL INSPECTION. absent: CVA tenderness (L), CVA tenderness (R), Full ROM, muscle spasm, paraspinal tenderness, rash noted, tenderness, vertebral tenderness - Neurological Exam Neurological Exam: Alert, Awake, CN II-XII Intact, Normal Gait, Oriented x3. absent: Abnormal Gait, Altered, Motor Sensory Deficit, Reflexes Normal - Psychiatric Exam Psychiatric exam: Normal Affect, Normal Mood - Skin Skin Exam: Dry, Intact, Normal Color, Warm Assessment and Plan - Assessment and Plan (Free Text) Assessment: 62 year old male with a past medical history significant for BPH, Ulcerative Colitis, Crohn's disease, GIB, gastric ulcer, and iron deficiency anemia who presents with one day of worsening diffuse sharp abdominal pain that is constant and failure to pass flatus or stool. Patient had a CT abdomen/pelvis done in the ED which showed mid to distal SBO with transition point in the right midabdomen. Patient has passed stool and flatus since admission but has failed diet progression to solid PO intake and currently tolerating full liquid diet. Plan: 1. SBO -CT Abdomen/Pelvis showed mid to distal SBO with transition point in the right midabdomen -Continue Reglan 5mg IVP Q8 and Morphine 4mg IVP Q4H PRN for pain control -Continue Zofran 4mg IVP Q4H PRN for N/V -Continue Normal Saline at 100mls/hr -Full liquid diet and will advance as tolerated -Surgery consulted, all recommendations appreciated GI Prophylaxis: Protonix DVT Prophylaxis: Lovenox and SCD's Patient seen and case discussed with attending, Dr. Valdez. <Javier Valdez - Last Filed: 01/16/18 16:33> Objective - Vital Signs/Intake and Output Vital Signs (last 24 hours): Temp Pulse Resp BP Pulse Ox 98.8 F 63 20 120/76 97 01/16/18 07:37 01/16/18 07:37 01/16/18 07:37 01/16/18 07:37 01/16/18 07:37 Intake and Output: 01/16/18 01/16/18 06:59 18:59 Intake Total 1620 540 Output Total 3 Balance 1620 537 - Medications Medications: Current Medications Enoxaparin Sodium (Lovenox) 30 mg SC DAILY [facility] PRN Reason: Protocol Last Admin: 01/16/18 10:22 Dose: Not Given Lactated Ringer's (Lactated Ringer's) 1,000 mls @ 110 mls/hr IV .Q9H6M [facility] Last Admin: 01/16/18 16:02 Dose: 110 mls/hr Metoclopramide HCl (Reglan) 5 mg IVP Q8 [facility] Last Admin: 01/16/18 13:36 Dose: 5 mg Ondansetron HCl (Zofran Inj) 4 mg IVP Q4H PRN PRN Reason: Nausea/Vomiting Pantoprazole Sodium (Protonix Inj) 40 mg IVP DAILY [facility] Last Admin: 01/16/18 10:04 Dose: 40 mg Vitamin A (Vitamin A & D Oint Ud Foilpak) 1 ea TOP Q2 PRN PRN Reason: Dry mouth - Labs Labs: 01/16/18 06:50 01/16/18 06:50 PT 11.8 SECONDS (9.4-12.5) 01/14/18 04:08 INR 1.03 (0.93-1.08) 01/14/18 04:08 APTT 26.4 Seconds (25.1-36.5) 01/14/18 04:08 Attending/Attestation - Attestation I have personally seen and examined this patient.: Yes I have fully participated in the care of the patient.: Yes I have reviewed all pertinent clinical information, including history, physical exam and plan: Yes Notes (Text): 01/16/18 16:32 Attending note; Patient seen and examined with resident. Patient is a 62 year old male with a past medical history significant for Crohn 's disease, colectomy, gastric ulcer, BPH and iron deficiency anemia who presents with one day of worsening diffuse sharp abdominal pain. CT abdomen and pelvis showed mild to distal small bowel obstruction with transition point in the right mid abdomen. Abdomen is much softer. Started on clear liquid diet. Advance to soft diet. Patient complaining of abdominal discomfort. Still having bowel movement. surgery evaluation Appreciated. Placed on nothing by mouth. Continue IV fluids. Monitor closely with surgery. GI prophylaxis with Protonix. Lovenox for DVT prophylaxis. upon discharge the patient will follow-up with PMD Dr. Lindo. Patient will follow-up with his primary GI upon discharge. Case discussed with him in detail.
[2018-01-16] MEDS: Sodium Chloride 0.9% 1,000 ML IV SCH (12:31)
[2018-01-16] MEDS: Lactated Ringer's 1,000 ML IV SCH (16:02)
[2018-01-17] MEDS: Lactated Ringer's 1,000 ML IV SCH ×3 (01:59→19:36)
[2018-01-17 07:18] LABS: BASO # 0.03 K/mm3 (0.0-2.0); BASO % 0.4 % (0.0-3.0); EOS # 0.2 (0.0-0.7); EOS % 1.9 % (1.5-5.0); GRAN # 4.74 (1.4-6.5); HEMOGLOBIN 13.4 g/dL (14.0-18.0); LYMPH # 1.7 (1.2-3.4); MEAN CELL VOLUME 82.3 fl (80.0-105.0); MEAN CORPUSCULAR HEMOGLOBIN 28.3 pg (25.0-35.0); MEAN CORPUSCULAR HGB CONC 34.4 g/dl (31.0-37.0); MEAN PLATELET VOLUME 10.7 fl (7.0-11.0); MONO # 1.1 (0.1-0.6); MONO % 14.7 % (1.0-6.0); RBC 4.74 10^6/uL (3.5-6.1); RED CELL DISTRIBUTION WIDTH 13.1 % (11.5-14.5); WHITE BLOOD COUNT 7.8 10^3/ul (4.5-11.0)
[2018-01-17 07:57] LABS: ALB/GLOB RATIO 1.1 (1.1-1.8); ALBUMIN 3.7 g/dL (3.0-4.8); ALT/SGPT 33 U/L (7-56); AST/SGOT 27 U/L (17-59); BLOOD UREA NITROGEN 7 mg/dL (7-21); CALCIUM 9.5 mg/dL (8.4-10.5); GFR AFRICAN-AMERICAN > 60; GFR NON-AFRICAN AMERICAN > 60
--- NOTE | 2018-01-17 08:08 | CP.PCM.PN ---
Subjective - Date & Time of Evaluation Date of Evaluation: 01/17/18 Time of Evaluation: 07:57 - Subjective Subjective: Surgery Progress Note: Patient seen and examined at bedside. NGT clamped at bedside, given clear liquid diet. Pt reports that he is passing flatus. Denies nausea, vomiting, fever, chills. Objective - Vital Signs/Intake and Output Vital Signs (last 24 hours): Temp Pulse Resp BP Pulse Ox 98.5 F 84 20 121/77 96 01/16/18 22:00 01/16/18 22:00 01/16/18 22:00 01/16/18 22:00 01/16/18 22:00 Intake and Output: 01/17/18 01/17/18 06:59 18:59 Intake Total 1320 Balance 1320 - Medications Medications: Current Medications Enoxaparin Sodium (Lovenox) 30 mg SC DAILY [facility] PRN Reason: Protocol Last Admin: 01/16/18 10:22 Dose: Not Given Lactated Ringer's (Lactated Ringer's) 1,000 mls @ 110 mls/hr IV .Q9H6M [facility] Last Admin: 01/17/18 01:59 Dose: 110 mls/hr Metoclopramide HCl (Reglan) 5 mg IVP Q8 [facility] Last Admin: 01/17/18 06:04 Dose: 5 mg Ondansetron HCl (Zofran Inj) 4 mg IVP Q4H PRN PRN Reason: Nausea/Vomiting Pantoprazole Sodium (Protonix Inj) 40 mg IVP DAILY [facility] Last Admin: 01/16/18 10:04 Dose: 40 mg Vitamin A (Vitamin A & D Oint Ud Foilpak) 1 ea TOP Q2 PRN PRN Reason: Dry mouth - Labs Labs: 01/17/18 06:30 01/16/18 06:50 PT 11.8 SECONDS (9.4-12.5) 01/14/18 04:08 INR 1.03 (0.93-1.08) 01/14/18 04:08 APTT 26.4 Seconds (25.1-36.5) 01/14/18 04:08 - Constitutional Appears: Non-toxic, No Acute Distress - Head Exam Head Exam: ATRAUMATIC, NORMOCEPHALIC - Eye Exam Eye Exam: Conjunctival injection, EOMI, PERRL. absent: Nystagmus, Scleral icterus Pupil Exam: NORMAL ACCOMODATION, PERRL. absent: Irregular, Unequal - ENT Exam ENT Exam: Mucous Membranes Moist - Neck Exam Neck Exam: Full ROM, Normal Inspection - Respiratory Exam Respiratory Exam: Clear to Ausculation Bilateral - Cardiovascular Exam Cardiovascular Exam: RRR, +S1, +S2. absent: Murmur - GI/Abdominal Exam GI & Abdominal Exam: Soft, Tenderness. absent: Firm, Rigid, Mass, Organomegaly , Rebound - Extremities Exam Extremities Exam: Normal Inspection. absent: Calf Tenderness, Pedal Edema - Back Exam Back Exam: NORMAL INSPECTION - Neurological Exam Neurological Exam: Alert, Awake, Oriented x3 - Psychiatric Exam Psychiatric exam: Normal Affect, Normal Mood - Skin Skin Exam: Dry, Normal Color, Warm Assessment and Plan - Assessment and Plan (Free Text) Assessment: 62 year old male with SBO, pain worsening: - CLD. If tolerating, will advance diet. NGT clamped currently. - Small bowel series - please have patient drink PO contrast, not thru NGT. - serial abd exams - Discussed with attending.
--- NOTE | 2018-01-17 08:08 | RAD ---
HISTORY: s/p NGT COMPARISON: 01/14/2018 FINDINGS: LUNGS: No active pulmonary disease. PLEURA: No significant pleural effusion identified, no pneumothorax apparent. CARDIOVASCULAR: Normal. OSSEOUS STRUCTURES: No significant abnormalities. VISUALIZED UPPER ABDOMEN: Nasogastric tube in satisfactory position OTHER FINDINGS: None. IMPRESSION: Nasogastric tube in satisfactory position
[2018-01-17] MEDS ORDERED: Potassium Chloride 40 mEq/30 ml LIQ UD PO ONE (08:41)
[2018-01-17] MEDS: Enoxaparin 30 mg Syringe SC SCH ×2 (09:51→09:58)
[2018-01-17] MEDS ORDERED: Barium Sulfate Susp 2.1% w/v, 2.0% w/w 450 mL Bottle PO ONE (12:52)
--- NOTE | 2018-01-17 14:19 | CP.PCM.PN ---
<Kodak Leone - Last Filed: 01/17/18 14:10> Subjective - Date & Time of Evaluation Date of Evaluation: 01/17/18 Time of Evaluation: 14:10 - Subjective Subjective: Medicine Progress Note: Patient seen and assessed at bedside. Overnight, patient failed soft PO trial and an NGT was placed with approximately 25cc of fluid drained. This was clamped this AM and patient was placed on clear liquid diet for breakfast. Patient reports that he became nauseous and bloated around 1700 which prompted an evaluation from surgical team and NGT placement. Patient denies these feelings after breakfast and endorses multiple normal colored and caliber stools. Patient denies fever, chills, headache, chest pain, SOB, D/C, urinary changes, skin changes, or any numbness/tingling/weakness of any extremity. Objective - Vital Signs/Intake and Output Vital Signs (last 24 hours): Temp Pulse Resp BP Pulse Ox 98.0 F 69 19 127/75 97 01/17/18 06:00 01/17/18 06:00 01/17/18 06:00 01/17/18 06:00 01/17/18 06:00 Intake and Output: 01/17/18 01/17/18 06:59 18:59 Intake Total 1320 Balance 1320 - Medications Medications: Current Medications Enoxaparin Sodium (Lovenox) 30 mg SC DAILY [facility] PRN Reason: Protocol Last Admin: 01/17/18 09:58 Dose: Not Given Lactated Ringer's (Lactated Ringer's) 1,000 mls @ 110 mls/hr IV .Q9H6M [facility] Last Admin: 01/17/18 09:50 Dose: 110 mls/hr Metoclopramide HCl (Reglan) 5 mg IVP Q8 [facility] Last Admin: 01/17/18 06:04 Dose: 5 mg Ondansetron HCl (Zofran Inj) 4 mg IVP Q4H PRN PRN Reason: Nausea/Vomiting Pantoprazole Sodium (Protonix Inj) 40 mg IVP DAILY [facility] Last Admin: 01/17/18 09:50 Dose: 40 mg Vitamin A (Vitamin A & D Oint Ud Foilpak) 1 ea TOP Q2 PRN PRN Reason: Dry mouth Last Admin: 01/17/18 09:50 Dose: 1 ea - Labs Labs: 01/17/18 06:30 01/17/18 06:30 PT 11.8 SECONDS (9.4-12.5) 01/14/18 04:08 INR 1.03 (0.93-1.08) 01/14/18 04:08 APTT 26.4 Seconds (25.1-36.5) 01/14/18 04:08 - Constitutional Appears: Non-toxic, No Acute Distress - Head Exam Head Exam: ATRAUMATIC, NORMOCEPHALIC - Eye Exam Eye Exam: EOMI, Normal appearance Pupil Exam: NORMAL ACCOMODATION, PERRL - ENT Exam ENT Exam: Mucous Membranes Moist, Normal Exam Additional comments: NGT in place in nasopharynx - Neck Exam Neck Exam: Full ROM, Normal Inspection. absent: Lymphadenopathy, Tenderness - Respiratory Exam Respiratory Exam: Clear to Ausculation Bilateral, NORMAL BREATHING PATTERN - Cardiovascular Exam Cardiovascular Exam: REGULAR RHYTHM, +S1, +S2. absent: Murmur - GI/Abdominal Exam GI & Abdominal Exam: Soft, Tenderness (Mild TTP in lower quadrants/periumbilical ), Normal Bowel Sounds. absent: Distended, Firm, Guarding, Rigid, Rebound - Extremities Exam Extremities Exam: Full ROM, Normal Capillary Refill, Normal Inspection. absent : Calf Tenderness, Joint Swelling, Pedal Edema, Tenderness - Back Exam Back Exam: NORMAL INSPECTION - Neurological Exam Neurological Exam: Alert, Awake, CN II-XII Intact, Normal Gait, Oriented x3 - Psychiatric Exam Psychiatric exam: Normal Affect, Normal Mood - Skin Skin Exam: Dry, Intact, Normal Color, Warm Assessment and Plan - Assessment and Plan (Free Text) Assessment: 62 year old male with a past medical history significant for BPH, Ulcerative Colitis, Crohn's disease, GIB, gastric ulcer, and iron deficiency anemia who presents with one day of worsening diffuse sharp abdominal pain that is constant and failure to pass flatus or stool. Patient had a CT abdomen/pelvis done in the ED which showed mid to distal SBO with transition point in the right midabdomen. Patient has passed stool and flatus since admission but has failed diet progression requiring NGT. GI was consulted and is to have CT Abdomen/Pelvis with PO and IV contrast. Plan: 1. SBO -CT Abdomen/Pelvis showed mid to distal SBO with transition point in the right midabdomen -CT Abdomen/Pelvis with PO and IV contrast pending -Continue Reglan 5mg IVP Q8 and Morphine 4mg IVP Q4H PRN for pain control -Continue Zofran 4mg IVP Q4H PRN for N/V -Continue LR at 110mls/hr -NGT, per surgery team -Clear Liquid Diet; Advance as tolerated -GI and Surgery consulted, all recommendations appreciated GI Prophylaxis: Protonix DVT Prophylaxis: Lovenox and SCD's Patient seen and case discussed with attending, Dr. Valdez. <Javier Valdez - Last Filed: 01/18/18 07:38> Objective - Vital Signs/Intake and Output Vital Signs (last 24 hours): Temp Pulse Resp BP Pulse Ox 97.9 F 71 20 144/83 99 01/17/18 14:00 01/17/18 14:00 01/17/18 14:00 01/17/18 14:00 01/17/18 14:00 Intake and Output: 01/18/18 01/18/18 06:59 18:59 Intake Total 600 Output Total 4 Balance 596 - Medications Medications: Current Medications Enoxaparin Sodium (Lovenox) 30 mg SC DAILY [facility] PRN Reason: Protocol Last Admin: 01/17/18 09:58 Dose: Not Given Lactated Ringer's (Lactated Ringer's) 1,000 mls @ 110 mls/hr IV .Q9H6M [facility] Last Admin: 01/18/18 04:51 Dose: 110 mls/hr Metoclopramide HCl (Reglan) 5 mg IVP Q8 [facility] Last Admin: 01/18/18 05:36 Dose: 5 mg Ondansetron HCl (Zofran Inj) 4 mg IVP Q4H PRN PRN Reason: Nausea/Vomiting Pantoprazole Sodium (Protonix Inj) 40 mg IVP DAILY [facility] Last Admin: 01/17/18 09:50 Dose: 40 mg Vitamin A (Vitamin A & D Oint Ud Foilpak) 1 ea TOP Q2 PRN PRN Reason: Dry mouth Last Admin: 01/17/18 09:50 Dose: 1 ea - Labs Labs: 01/17/18 06:30 01/17/18 06:30 PT 11.8 SECONDS (9.4-12.5) 01/14/18 04:08 INR 1.03 (0.93-1.08) 01/14/18 04:08 APTT 26.4 Seconds (25.1-36.5) 01/14/18 04:08 Attending/Attestation - Attestation I have personally seen and examined this patient.: Yes I have fully participated in the care of the patient.: Yes I have reviewed all pertinent clinical information, including history, physical exam and plan: Yes Notes (Text): 01/18/18 07:37 Attending note; Patient seen and examined with resident. Patient is a 62 year old male with a past medical history significant for Crohn 's disease, colectomy, gastric ulcer, BPH and iron deficiency anemia who presents with one day of worsening diffuse sharp abdominal pain. CT abdomen and pelvis showed mild to distal small bowel obstruction with transition point in the right mid abdomen. Patient had abdominal pain yesterday. NG tube placed by surgery. Minimal drainage noted. Still having bowel movement. surgery evaluation Appreciated. GI evaluation with Dr. Pradhan appreciated. CT enterography/CT abdomen and pelvis requested. Started on clear liquid diet by surgery. Monitor closely. GI prophylaxis with Protonix. Lovenox for DVT prophylaxis. upon discharge the patient will follow-up with PMD Dr. Lindo. Patient will follow-up with his primary GI upon discharge. Case discussed with him in detail.
[2018-01-17] MEDS ORDERED: Iohexol 350 MG/100 ML VIAL ONE (14:38)
--- NOTE | 2018-01-17 16:53 | CT ---
PROCEDURE: CT Abdomen and Pelvis with contrast HISTORY: attention to small bowel, poss crohn stricture COMPARISON: CT 01/14/2018 TECHNIQUE: Contrast dose: 100 cc of Omni 350 Radiation dose: Total exam DLP = 381 mGy-cm. This CT exam was performed using one or more of the following dose reduction techniques: Automated exposure control, adjustment of the mA and/or kV according to patient size, and/or use of iterative reconstruction technique. FINDINGS: LOWER THORAX: Unremarkable. LIVER: Unremarkable. No gross lesion or ductal dilatation. GALLBLADDER AND BILE DUCTS: There is a gallstone. There is a small amount of fluid around the gallbladder. PANCREAS: Unremarkable. No gross lesion or ductal dilatation. SPLEEN: Unremarkable. ADRENALS: Unremarkable. No mass. KIDNEYS AND URETERS: Unremarkable. No hydronephrosis. No solid mass. VASCULATURE: Unremarkable BOWEL: There is persistent mild to moderate dilatation of small bowel. There is mild mural thickening of the small bowel consistent with the history of Crohn's disease. There is no focal stricture identified. Previous surgery has been performed with a suture line in the lower rectum. The colon has been resected APPENDIX: Normal appendix. PERITONEUM: Unremarkable. No free fluid. No free air. LYMPH NODES: Unremarkable. No enlarged lymph nodes. BLADDER: Unremarkable. REPRODUCTIVE: Unremarkable. BONES: No acute fracture. OTHER FINDINGS: None. IMPRESSION: There is persistent mild to moderate dilatation of small bowel. There is mild mural thickening of the small bowel consistent with the history of Crohn's disease. There is no focal stricture identified.
[2018-01-18] MEDS: Lactated Ringer's 1,000 ML IV SCH ×2 (04:51→17:16)
--- NOTE | 2018-01-18 06:38 | CON ---
DATE:01/17/2018 HISTORY OF PRESENT ILLNESS: This patient was seen and evaluated earlier today. This 62-year-old patient with history of Crohn's disease, on Entyvio, admitted with acute onset of abdominal pain and vomiting, suggestive of small bowel obstruction. The patient was initially treated conservatively. The patient improved. The patient was started on diet yesterday, solid food, recurrence of the abdominal distention and abdominal cramp. NG tube was placed, decompression. Today feeling better. GI was consult was requested in view of this recurrent small bowel obstruction. PAST MEDICAL HISTORY: Other past medical history is significant for Crohn's disease, small bowel ulceration, history of gastric ulcers. The patient had a total colectomy in 2011. PAST SURGICAL HISTORY: Significant for TURP, cataract surgery and left cardiac catheterization. SOCIAL HISTORY: Social alcohol use. Denies smoking. FAMILY HISTORY: Noncontributory. ALLERGIES: NO KNOWN DRUG ALLERGIES. PHYSICAL EXAMINATION: GENERAL: The patient is lying on the bed. Surgical scar present. The patient has an NG tube. EXTREMITIES: No edema. No cyanosis. LABORATORY DATA: Hemoglobin is 13.4, hematocrit 39, WBC 7.4, and platelets 177. Chemistry is essentially unremarkable except potassium is 3.5. DIAGNOSTIC DATA: CAT scan of the abdomen and pelvis done, was reviewed before. It showed diffuse small bowel distention and transition point in the right mid abdomen; hypodensity in the liver, too small, probably cystic. IMPRESSION: This 62-year-old patient with Crohn's disease admitted with small bowel obstruction, was initially clinically improving, has recurrence of the obstruction symptoms. NG tube placed, now he is clinically improving. The concern is now the obstruction probably is secondary to the crohns stricture versus adhesion. PLAN: Would recommend CT enterography. I had a detail discussion with the medical team. We will continue to closely follow up his care. We will follow up the CT scan and recommend further management based on the clinical course. The patient was taking meloxicam at home. The patient was advised to avoid . Would continue the PPI. Thank you very much for allowing us to participate in the care of the patient. Rosa Albarran MD [facility] # [id number] MTDJuan Jose
[2018-01-18 07:38] LABS: BASO # 0.03 K/mm3 (0.0-2.0); BASO % 0.5 % (0.0-3.0); EOS # 0.1 (0.0-0.7); EOS % 2.1 % (1.5-5.0); GRAN # 3.48 (1.4-6.5); GRAN % 55.2 % (50.0-68.0); HEMOGLOBIN 12.9 g/dL (14.0-18.0); LYMPH # 1.5 (1.2-3.4); LYMPH % 23.5 % (22.0-35.0); MEAN CELL VOLUME 81.7 fl (80.0-105.0); MEAN CORPUSCULAR HEMOGLOBIN 28.4 pg (25.0-35.0); MEAN CORPUSCULAR HGB CONC 34.8 g/dl (31.0-37.0); MEAN PLATELET VOLUME 10.6 fl (7.0-11.0); MONO # 1.2 (0.1-0.6); MONO % 18.7 % (1.0-6.0); RBC 4.54 10^6/uL (3.5-6.1); RED CELL DISTRIBUTION WIDTH 12.9 % (11.5-14.5); WHITE BLOOD COUNT 6.3 10^3/ul (4.5-11.0)
[2018-01-18 08:04] LABS: BLOOD UREA NITROGEN 5 mg/dL (7-21); CALCIUM 9.8 mg/dL (8.4-10.5); GFR AFRICAN-AMERICAN > 60; GFR NON-AFRICAN AMERICAN > 60
[2018-01-18] MEDS: Enoxaparin 30 mg Syringe SC SCH (09:53)
--- NOTE | 2018-01-18 10:32 | CP.PCM.PN ---
<Kodak Leone - Last Filed: 01/18/18 10:29> Subjective - Date & Time of Evaluation Date of Evaluation: 01/18/18 Time of Evaluation: 10:29 - Subjective Subjective: Medicine Progress Note: Patient seen and assessed at bedside. Overnight, patient endorses multiple normal colored and caliber stools. He reports that he has tolerated his clear liquid diet well without N/V or abdominal pain. Patient denies fever, chills, headache, chest pain, SOB, abdominal pain, N/V/D/C, urinary changes, skin changes, or any numbness/tingling/weakness of any extremity. Objective - Vital Signs/Intake and Output Vital Signs (last 24 hours): Temp Pulse Resp BP Pulse Ox 98.1 F 66 18 105/65 96 01/18/18 08:00 01/18/18 08:00 01/18/18 08:00 01/18/18 08:00 01/18/18 08:00 Intake and Output: 01/18/18 01/18/18 06:59 18:59 Intake Total 600 Output Total 4 Balance 596 - Medications Medications: Current Medications Enoxaparin Sodium (Lovenox) 30 mg SC DAILY [facility] PRN Reason: Protocol Last Admin: 01/18/18 09:53 Dose: 30 mg Lactated Ringer's (Lactated Ringer's) 1,000 mls @ 110 mls/hr IV .Q9H6M [facility] Last Admin: 01/18/18 04:51 Dose: 110 mls/hr Metoclopramide HCl (Reglan) 5 mg IVP Q8 [facility] [place] Last Admin: 01/18/18 05:36 Dose: 5 mg Ondansetron HCl (Zofran Inj) 4 mg IVP Q4H PRN PRN Reason: Nausea/Vomiting Pantoprazole Sodium (Protonix Inj) 40 mg IVP DAILY [facility] [place] Last Admin: 01/18/18 09:53 Dose: 40 mg Vitamin A (Vitamin A & D Oint Ud Foilpak) 1 ea TOP Q2 PRN PRN Reason: Dry mouth Last Admin: 01/17/18 09:50 Dose: 1 ea - Labs Labs: 01/18/18 06:30 01/18/18 06:30 PT 11.8 SECONDS (9.4-12.5) 01/14/18 04:08 INR 1.03 (0.93-1.08) 01/14/18 04:08 APTT 26.4 Seconds (25.1-36.5) 01/14/18 04:08 - Constitutional Appears: Non-toxic, No Acute Distress - Head Exam Head Exam: ATRAUMATIC, NORMOCEPHALIC - Eye Exam Eye Exam: EOMI, Normal appearance Pupil Exam: NORMAL ACCOMODATION, PERRL - ENT Exam ENT Exam: Mucous Membranes Moist, Normal Exam - Neck Exam Neck Exam: Full ROM, Normal Inspection. absent: Lymphadenopathy, Tenderness - Respiratory Exam Respiratory Exam: Clear to Ausculation Bilateral, NORMAL BREATHING PATTERN - Cardiovascular Exam Cardiovascular Exam: REGULAR RHYTHM, +S1, +S2. absent: Murmur - GI/Abdominal Exam GI & Abdominal Exam: Soft, Normal Bowel Sounds. absent: Distended, Firm, Guarding, Tenderness, Rebound - Extremities Exam Extremities Exam: Full ROM, Normal Capillary Refill, Normal Inspection. absent : Calf Tenderness, Joint Swelling, Pedal Edema, Tenderness - Back Exam Back Exam: NORMAL INSPECTION. absent: CVA tenderness (L), CVA tenderness (R) - Neurological Exam Neurological Exam: Alert, Awake, CN II-XII Intact, Normal Gait, Oriented x3 - Psychiatric Exam Psychiatric exam: Normal Affect, Normal Mood - Skin Skin Exam: Dry, Intact, Normal Color, Warm Assessment and Plan - Assessment and Plan (Free Text) Assessment: 62 year old male with a past medical history significant for BPH, Ulcerative Colitis, Crohn's disease, GIB, gastric ulcer, and iron deficiency anemia who presents with one day of worsening diffuse sharp abdominal pain that is constant and failure to pass flatus or stool. Patient had a CT abdomen/pelvis done in the ED which showed mid to distal SBO with transition point in the right midabdomen. Patient has passed stool and flatus since admission but has failed diet progression requiring NGT, which has since been discontinued. GI was consulted and CT Abdomen/Pelvis with PO and IV contrast showed no focal obstructing strictures and mild dilatation of small bowel. Plan: 1. SBO -CT Abdomen/Pelvis showed mid to distal SBO with transition point in the right midabdomen -Repeat CT Abdomen/Pelvis with PO and IV contrast showing no focal obstructing stricture and mild dilatation of small bowel -Continue Reglan 5mg IVP Q8 and Morphine 4mg IVP Q4H PRN for pain control -Continue Zofran 4mg IVP Q4H PRN for N/V -Continue LR at 110mls/hr -Clear Liquid Diet; Advance as tolerated -GI and Surgery consulted, all recommendations appreciated GI Prophylaxis: Protonix DVT Prophylaxis: Lovenox and SCD's Patient seen and case discussed with attending, Dr. Valdez. <Javier Valdez - Last Filed: 01/18/18 14:52> Objective - Vital Signs/Intake and Output Vital Signs (last 24 hours): Temp Pulse Resp BP Pulse Ox 98.1 F 66 18 105/65 96 01/18/18 08:00 01/18/18 08:00 01/18/18 08:00 01/18/18 08:00 01/18/18 08:00 Intake and Output: 01/18/18 01/18/18 06:59 18:59 Intake Total 600 Output Total 4 Balance 596 - Medications Medications: Current Medications Enoxaparin Sodium (Lovenox) 30 mg SC DAILY [facility] PRN Reason: Protocol Last Admin: 01/18/18 09:53 Dose: 30 mg Lactated Ringer's (Lactated Ringer's) 1,000 mls @ 110 mls/hr IV .Q9H6M [facility] [place] Last Admin: 01/18/18 04:51 Dose: 110 mls/hr Metoclopramide HCl (Reglan) 5 mg IVP Q8 [facility] [place] Last Admin: 01/18/18 13:20 Dose: 5 mg Ondansetron HCl (Zofran Inj) 4 mg IVP Q4H PRN PRN Reason: Nausea/Vomiting Pantoprazole Sodium (Protonix Inj) 40 mg IVP DAILY [facility] [place] Last Admin: 01/18/18 09:53 Dose: 40 mg Vitamin A (Vitamin A & D Oint Ud Foilpak) 1 ea TOP Q2 PRN PRN Reason: Dry mouth Last Admin: 01/17/18 09:50 Dose: 1 ea - Labs Labs: 01/18/18 06:30 01/18/18 06:30 PT 11.8 SECONDS (9.4-12.5) 01/14/18 04:08 INR 1.03 (0.93-1.08) 01/14/18 04:08 APTT 26.4 Seconds (25.1-36.5) 01/14/18 04:08 Attending/Attestation - Attestation I have personally seen and examined this patient.: Yes I have fully participated in the care of the patient.: Yes I have reviewed all pertinent clinical information, including history, physical exam and plan: Yes Notes (Text): 01/18/18 14:51 Attending note; Patient seen and examined with resident. Patient is a 62 year old male with a past medical history significant for Crohn 's disease, colectomy, gastric ulcer, BPH and iron deficiency anemia who presents with one day of worsening diffuse sharp abdominal pain. CT abdomen and pelvis showed mild to distal small bowel obstruction with transition point in the right mid abdomen. NG tube removed yesterday. Tolerating liquid diet. started on pure diet. Still having bowel movement. surgery evaluation Appreciated. GI evaluation with Dr. Albarran appreciated. CT enterography/CT abdomen and pelvis showed dilated bowel loop without significant obstruction. GI prophylaxis with Protonix. Lovenox for DVT prophylaxis. upon discharge the patient will follow-up with PMD Dr. Lindo. Patient will follow-up with his primary GI upon discharge. Case discussed with him in detail.
--- NOTE | 2018-01-18 11:29 | CP.PCM.PN ---
<Mariah Acuna - Last Filed: 01/18/18 11:22> Subjective - Date & Time of Evaluation Date of Evaluation: 01/18/18 Time of Evaluation: 09:50 - Subjective Subjective: S&E at bedside, chart reviewed. No acute overnight events reported. NGTube dc's last night. Tolerating liquid diet. Had 5 loose BM last night and 2 so far this am, no overt GI bleeding. No N/V or abdominal pain. Ct scan report reviewed; mild to moderated dilation of small bowel, mural thickeningnoted consistent with Chron's disease, no focal stricture. Objective - Vital Signs/Intake and Output Vital Signs (last 24 hours): Temp Pulse Resp BP Pulse Ox 98.1 F 66 18 105/65 96 01/18/18 08:00 01/18/18 08:00 01/18/18 08:00 01/18/18 08:00 01/18/18 08:00 Intake and Output: 01/18/18 01/18/18 06:59 18:59 Intake Total 600 Output Total 4 Balance 596 - Medications Medications: Current Medications Enoxaparin Sodium (Lovenox) 30 mg SC DAILY [facility] PRN Reason: Protocol Last Admin: 01/18/18 09:53 Dose: 30 mg Lactated Ringer's (Lactated Ringer's) 1,000 mls @ 110 mls/hr IV .Q9H6M [facility] Last Admin: 01/18/18 04:51 Dose: 110 mls/hr Metoclopramide HCl (Reglan) 5 mg IVP Q8 [facility] Last Admin: 01/18/18 05:36 Dose: 5 mg Ondansetron HCl (Zofran Inj) 4 mg IVP Q4H PRN PRN Reason: Nausea/Vomiting Pantoprazole Sodium (Protonix Inj) 40 mg IVP DAILY [facility] Last Admin: 01/18/18 09:53 Dose: 40 mg Vitamin A (Vitamin A & D Oint Ud Foilpak) 1 ea TOP Q2 PRN PRN Reason: Dry mouth Last Admin: 01/17/18 09:50 Dose: 1 ea - Labs Labs: 01/18/18 06:30 01/18/18 06:30 PT 11.8 SECONDS (9.4-12.5) 01/14/18 04:08 INR 1.03 (0.93-1.08) 01/14/18 04:08 APTT 26.4 Seconds (25.1-36.5) 01/14/18 04:08 - Constitutional Appears: No Acute Distress - Head Exam Head Exam: NORMOCEPHALIC - Eye Exam Eye Exam: Normal appearance. absent: Scleral icterus - ENT Exam ENT Exam: Mucous Membranes Moist - Neck Exam Neck Exam: Normal Inspection - Respiratory Exam Respiratory Exam: NORMAL BREATHING PATTERN. absent: Respiratory Distress - Cardiovascular Exam Cardiovascular Exam: +S1, +S2 - GI/Abdominal Exam GI & Abdominal Exam: Soft, Normal Bowel Sounds. absent: Guarding, Tenderness, Organomegaly, Rebound - Extremities Exam Extremities Exam: absent: Calf Tenderness - Neurological Exam Neurological Exam: Alert, Awake, Oriented x3 - Skin Skin Exam: Dry, Warm Assessment and Plan - Assessment and Plan (Free Text) Assessment: ASSESSMENT: SBO Crohn' s disease H/O Gastric ulcer Total colectomy PLAN: on clear liquid continue PPI monitor electrolytes/h/h on Lovenox Zofran prn on Reglan, would recommend short course as per patient on [place] following Patient GI doctor is : Dr. Daquan Gunderson [phone] Seen and discussed w/ Dr. Albarran. <Rosa Albarran V - Last Filed: 01/18/18 23:54> Objective - Vital Signs/Intake and Output Vital Signs (last 24 hours): Temp Pulse Resp BP Pulse Ox 99.0 F 71 18 102/50 L 94 L 01/18/18 22:00 01/18/18 22:00 01/18/18 22:00 01/18/18 22:00 01/18/18 22:00 Intake and Output: 01/18/18 01/19/18 18:59 06:59 Intake Total 480 Balance 480 - Medications Medications: Current Medications Enoxaparin Sodium (Lovenox) 30 mg SC DAILY [facility] PRN Reason: Protocol Last Admin: 01/18/18 09:53 Dose: 30 mg Lactated Ringer's (Lactated Ringer's) 1,000 mls @ 110 mls/hr IV .Q9H6M [facility] Last Admin: 01/18/18 17:16 Dose: 110 mls/hr Metoclopramide HCl (Reglan) 5 mg IVP Q8 [facility] Last Admin: 01/18/18 21:51 Dose: 5 mg Ondansetron HCl (Zofran Inj) 4 mg IVP Q4H PRN PRN Reason: Nausea/Vomiting Pantoprazole Sodium (Protonix Inj) 40 mg IVP DAILY [facility] Last Admin: 01/18/18 09:53 Dose: 40 mg Vitamin A (Vitamin A & D Oint Ud Foilpak) 1 ea TOP Q2 PRN PRN Reason: Dry mouth Last Admin: 01/17/18 09:50 Dose: 1 ea - Labs Labs: 01/18/18 06:30 01/18/18 06:30 PT 11.8 SECONDS (9.4-12.5) 01/14/18 04:08 INR 1.03 (0.93-1.08) 01/14/18 04:08 APTT 26.4 Seconds (25.1-36.5) 01/14/18 04:08 Attending/Attestation - Attestation I have personally seen and examined this patient.: Yes I have fully participated in the care of the patient.: Yes I have reviewed all pertinent clinical information, including history, physical exam and plan: Yes
--- NOTE | 2018-01-18 13:49 | CP.PCM.PN ---
<RadhajolieJr - Last Filed: 01/18/18 13:46> Subjective - Date & Time of Evaluation Date of Evaluation: 01/18/18 Time of Evaluation: 13:46 - Subjective Subjective: Surgery: Dr. Leone Pt seen and examined. Resting comfortably in bed. Pain is improved. Pt tolerated CLD. He is passing flatus and having BM. No N/V. Objective - Vital Signs/Intake and Output Vital Signs (last 24 hours): Temp Pulse Resp BP Pulse Ox 98.1 F 66 18 105/65 96 01/18/18 08:00 01/18/18 08:00 01/18/18 08:00 01/18/18 08:00 01/18/18 08:00 Intake and Output: 01/18/18 01/18/18 06:59 18:59 Intake Total 600 Output Total 4 Balance 596 - Medications Medications: Current Medications Enoxaparin Sodium (Lovenox) 30 mg SC DAILY [facility] PRN Reason: Protocol Last Admin: 01/18/18 09:53 Dose: 30 mg Lactated Ringer's (Lactated Ringer's) 1,000 mls @ 110 mls/hr IV .Q9H6M [facility] Last Admin: 01/18/18 04:51 Dose: 110 mls/hr Metoclopramide HCl (Reglan) 5 mg IVP Q8 [facility] Last Admin: 01/18/18 13:20 Dose: 5 mg Ondansetron HCl (Zofran Inj) 4 mg IVP Q4H PRN PRN Reason: Nausea/Vomiting Pantoprazole Sodium (Protonix Inj) 40 mg IVP DAILY [facility] Last Admin: 01/18/18 09:53 Dose: 40 mg Vitamin A (Vitamin A & D Oint Ud Foilpak) 1 ea TOP Q2 PRN PRN Reason: Dry mouth Last Admin: 01/17/18 09:50 Dose: 1 ea - Labs Labs: 01/18/18 06:30 01/18/18 06:30 PT 11.8 SECONDS (9.4-12.5) 01/14/18 04:08 INR 1.03 (0.93-1.08) 01/14/18 04:08 APTT 26.4 Seconds (25.1-36.5) 01/14/18 04:08 - Constitutional Appears: Non-toxic, No Acute Distress - Head Exam Head Exam: ATRAUMATIC, NORMOCEPHALIC - Eye Exam Eye Exam: EOMI - ENT Exam ENT Exam: Mucous Membranes Moist - Neck Exam Neck Exam: Full ROM - Respiratory Exam Respiratory Exam: NORMAL BREATHING PATTERN. absent: Accessory Muscle Use, Respiratory Distress - GI/Abdominal Exam GI & Abdominal Exam: Soft. absent: Distended, Firm, Guarding, Rigid, Tenderness , Rebound - Extremities Exam Extremities Exam: absent: Calf Tenderness, Pedal Edema - Neurological Exam Neurological Exam: Alert, Awake, Oriented x3 Assessment and Plan - Assessment and Plan (Free Text) Assessment: 62M w. crohn's flare, improving Plan: -Diet advanced to puree -If diet tolerated, pt clear for D/C from surgical standpoint -no plans for surgical intervention at this time -d/w attending Radhaitis PGY3 <Irene Leone - Last Filed: 01/18/18 16:36> Objective - Vital Signs/Intake and Output Vital Signs (last 24 hours): Temp Pulse Resp BP Pulse Ox 98.4 F 65 18 120/78 98 01/18/18 14:00 01/18/18 14:00 01/18/18 14:00 01/18/18 14:00 01/18/18 14:00 Intake and Output: 01/18/18 01/18/18 06:59 18:59 Intake Total 600 480 Output Total 4 Balance 596 480 - Medications Medications: Current Medications Enoxaparin Sodium (Lovenox) 30 mg SC DAILY [facility] PRN Reason: Protocol Last Admin: 01/18/18 09:53 Dose: 30 mg Lactated Ringer's (Lactated Ringer's) 1,000 mls @ 110 mls/hr IV .Q9H6M [facility] Last Admin: 01/18/18 04:51 Dose: 110 mls/hr Metoclopramide HCl (Reglan) 5 mg IVP Q8 [facility] Last Admin: 01/18/18 13:20 Dose: 5 mg Ondansetron HCl (Zofran Inj) 4 mg IVP Q4H PRN PRN Reason: Nausea/Vomiting Pantoprazole Sodium (Protonix Inj) 40 mg IVP DAILY [facility] Last Admin: 01/18/18 09:53 Dose: 40 mg Vitamin A (Vitamin A & D Oint Ud Foilpak) 1 ea TOP Q2 PRN PRN Reason: Dry mouth Last Admin: 01/17/18 09:50 Dose: 1 ea - Labs Labs: 01/18/18 06:30 01/18/18 06:30 PT 11.8 SECONDS (9.4-12.5) 01/14/18 04:08 INR 1.03 (0.93-1.08) 01/14/18 04:08 APTT 26.4 Seconds (25.1-36.5) 01/14/18 04:08 Attending/Attestation - Attestation I have personally seen and examined this patient.: Yes I have fully participated in the care of the patient.: Yes I have reviewed all pertinent clinical information, including history, physical exam and plan: Yes Notes (Text): 01/18/18 16:[address] scan with no localized obstruction. Patient is moving bowels, denies pain. To advance diet as tolerted
[2018-01-18 22:49] VITALS: RESP 18
[2018-01-19] MEDS: Lactated Ringer's 1,000 ML IV SCH (02:12)
--- NOTE | 2018-01-19 07:32 | CP.PCM.PN ---
Subjective - Date & Time of Evaluation Date of Evaluation: 01/19/18 Time of Evaluation: 07:29 - Subjective Subjective: Surgery Pt s&e. NAEON. Tolerating reg diet. Reports BM. Denies Abd pain. + amb. + void. Objective - Vital Signs/Intake and Output Vital Signs (last 24 hours): Temp Pulse Resp BP Pulse Ox 99.0 F 71 18 102/50 L 94 L 01/18/18 22:00 01/18/18 22:00 01/18/18 22:00 01/18/18 22:00 01/18/18 22:00 Intake and Output: 01/19/18 01/19/18 06:59 18:59 Intake Total 100 Balance 100 - Medications Medications: Current Medications Enoxaparin Sodium (Lovenox) 30 mg SC DAILY [facility] PRN Reason: Protocol Last Admin: 01/18/18 09:53 Dose: 30 mg Lactated Ringer's (Lactated Ringer's) 1,000 mls @ 110 mls/hr IV .Q9H6M [facility] Last Admin: 01/19/18 02:12 Dose: 110 mls/hr Metoclopramide HCl (Reglan) 5 mg IVP Q8 [facility] Last Admin: 01/19/18 05:43 Dose: 5 mg Ondansetron HCl (Zofran Inj) 4 mg IVP Q4H PRN PRN Reason: Nausea/Vomiting Pantoprazole Sodium (Protonix Inj) 40 mg IVP DAILY [facility] Last Admin: 01/18/18 09:53 Dose: 40 mg Vitamin A (Vitamin A & D Oint Ud Foilpak) 1 ea TOP Q2 PRN PRN Reason: Dry mouth Last Admin: 01/17/18 09:50 Dose: 1 ea - Labs Labs: 01/18/18 06:30 01/18/18 06:30 PT 11.8 SECONDS (9.4-12.5) 01/14/18 04:08 INR 1.03 (0.93-1.08) 01/14/18 04:08 APTT 26.4 Seconds (25.1-36.5) 01/14/18 04:08 - Constitutional Appears: No Acute Distress - Head Exam Head Exam: ATRAUMATIC, NORMAL INSPECTION, NORMOCEPHALIC - Eye Exam Eye Exam: EOMI, Normal appearance, PERRL Pupil Exam: NORMAL ACCOMODATION, PERRL - ENT Exam ENT Exam: Mucous Membranes Moist, Normal Exam - Neck Exam Neck Exam: Full ROM, Normal Inspection. absent: Lymphadenopathy - Respiratory Exam Respiratory Exam: Clear to Ausculation Bilateral, NORMAL BREATHING PATTERN - Cardiovascular Exam Cardiovascular Exam: REGULAR RHYTHM, +S1, +S2. absent: Murmur - GI/Abdominal Exam GI & Abdominal Exam: Soft, Normal Bowel Sounds. absent: Distended, Firm, Guarding, Rigid, Tenderness, Mass, Organomegaly, Rebound Additional comments: Well healed scar noted. - Rectal Exam Rectal Exam: NORMAL INSPECTION - Exam Exam: NORMAL INSPECTION - Extremities Exam Extremities Exam: Full ROM, Normal Capillary Refill, Normal Inspection. absent : Joint Swelling, Pedal Edema - Back Exam Back Exam: NORMAL INSPECTION - Neurological Exam Neurological Exam: Alert, Awake, CN II-XII Intact, Normal Gait, Oriented x3 - Psychiatric Exam Psychiatric exam: Normal Affect, Normal Mood - Skin Skin Exam: Dry, Intact, Normal Color, Warm Assessment and Plan - Assessment and Plan (Free Text) Assessment: 62M w. crohn's flare, SBO improved Plan: -Diet advanced to puree -If diet tolerated, pt clear for D/C from surgical standpoint -no plans for surgical intervention at this time -Will d/w attending
[2018-01-19 07:33] LABS: BASO # 0.04 K/mm3 (0.0-2.0); BASO % 0.6 % (0.0-3.0); EOS # 0.2 (0.0-0.7); EOS % 3.4 % (1.5-5.0); GRAN # 3.07 (1.4-6.5); GRAN % 49.7 % (50.0-68.0); HEMOGLOBIN 13.8 g/dL (14.0-18.0); LYMPH # 1.8 (1.2-3.4); LYMPH % 29.6 % (22.0-35.0); MEAN CELL VOLUME 81.9 fl (80.0-105.0); MEAN CORPUSCULAR HEMOGLOBIN 28.8 pg (25.0-35.0); MEAN CORPUSCULAR HGB CONC 35.1 g/dl (31.0-37.0); MEAN PLATELET VOLUME 11.1 fl (7.0-11.0); MONO % 16.7 % (1.0-6.0); RBC 4.8 10^6/uL (3.5-6.1); WHITE BLOOD COUNT 6.2 10^3/ul (4.5-11.0)
[2018-01-19 07:59] LABS: BLOOD UREA NITROGEN 7 mg/dL (7-21); CALCIUM 9.6 mg/dL (8.4-10.5); GFR AFRICAN-AMERICAN > 60; GFR NON-AFRICAN AMERICAN > 60
[2018-01-19 08:39] VITALS: BP 99/68; PULSE 63; TEMP 98.5; O2SAT 96
[2018-01-19] MEDS: Enoxaparin 30 mg Syringe SC SCH (09:04)
--- NOTE | 2018-01-19 13:00 | CP.PCM.DIS ---
<Koadk Leone - Last Filed: 01/19/18 12:50> Provider - Provider Date of Admission: 01/14/18 06:18 Attending physician: Javier Valdez MD Primary care physician: Douglas Lindo MD Consults: Surgery: Vasu GI: Avis Time Spent in preparation of Discharge (in minutes): 49 Diagnosis - Discharge Diagnosis (1) Small bowel obstruction Status: Acute Hospital Course - Lab Results Lab Results: Most Recent Lab Values WBC 6.2 10^3/ul (4.5-11.0) 01/19/18 06:30 RBC 4.80 10^6/uL (3.5-6.1) 01/19/18 06:30 Hgb 13.8 g/dL (14.0-18.0) L 01/19/18 06:30 Hct 39.3 % (42.0-52.0) L 01/19/18 06:30 MCV 81.9 fl (80.0-105.0) 01/19/18 06:30 MCH 28.8 pg (25.0-35.0) 01/19/18 06:30 MCHC 35.1 g/dl (31.0-37.0) 01/19/18 06:30 RDW 13.0 % (11.5-14.5) 01/19/18 06:30 Plt Count 185 10^3/uL (120.0-450.0) 01/19/18 06:30 MPV 11.1 fl (7.0-11.0) H 01/19/18 06:30 Gran % 49.7 % (50.0-68.0) L 01/19/18 06:30 Lymph % (Auto) 29.6 % (22.0-35.0) 01/19/18 06:30 Mineral % (Auto) 16.7 % (1.0-6.0) H 01/19/18 06:30 Eos % (Auto) 3.4 % (1.5-5.0) 01/19/18 06:30 Baso % (Auto) 0.6 % (0.0-3.0) 01/19/18 06:30 Gran # 3.07 (1.4-6.5) 01/19/18 06:30 Lymph # (Auto) 1.8 (1.2-3.4) 01/19/18 06:30 Mineral # (Auto) 1.0 (0.1-0.6) H 01/19/18 06:30 Eos # (Auto) 0.2 (0.0-0.7) 01/19/18 06:30 Baso # (Auto) 0.04 K/mm3 (0.0-2.0) 01/19/18 06:30 PT 11.8 SECONDS (9.4-12.5) 01/14/18 04:08 INR 1.03 (0.93-1.08) 01/14/18 04:08 APTT 26.4 Seconds (25.1-36.5) 01/14/18 04:08 Sodium 142 mmol/L (132-148) 01/19/18 06:30 Potassium 3.9 mmol/L (3.6-5.0) 01/19/18 06:30 Chloride 105 mmol/L (98-107) 01/19/18 06:30 Carbon Dioxide 25 mmol/L (21-33) 01/19/18 06:30 Anion Gap 16 (10-20) 01/19/18 06:30 BUN 7 mg/dL (7-21) 01/19/18 06:30 Creatinine 0.9 mg/dl (0.8-1.5) 01/19/18 06:30 Est GFR ( Amer) > 60 01/19/18 06:30 Est GFR (Non-Af Amer) > 60 01/19/18 06:30 Random Glucose 90 mg/dL (70-110) 01/19/18 06:30 Lactic Acid 1.8 mmol/L (0.7-2.1) 01/14/18 04:08 Calcium 9.6 mg/dL (8.4-10.5) 01/19/18 06:30 Magnesium 2.2 mg/dL (1.7-2.2) 01/14/18 04:08 Total Bilirubin 0.6 mg/dL (0.2-1.3) 01/17/18 06:30 AST 27 U/L (17-59) 01/17/18 06:30 ALT 33 U/L (7-56) 01/17/18 06:30 Alkaline Phosphatase 56 U/L (38-126) 01/17/18 06:30 Lactate Dehydrogenase 396 U/L (333-699) 01/14/18 04:08 Total Creatine Kinase 103 U/L (35-230) 01/14/18 04:08 Troponin I < 0.01 ng/mL 01/14/18 04:08 Total Protein 7.1 g/dL (5.8-8.3) 01/17/18 06:30 Albumin 3.7 g/dL (3.0-4.8) 01/17/18 06:30 Globulin 3.4 gm/dL 01/17/18 06:30 Albumin/Globulin Ratio 1.1 (1.1-1.8) 01/17/18 06:30 Amylase 89 U/L (35-125) 01/14/18 04:08 Lipase 213 U/L (23-300) 01/14/18 04:08 Urine Color Yellow (YELLOW) 01/14/18 06:04 Urine Appearance Clear (CLEAR) 01/14/18 06:04 Urine pH 6.0 (4.7-8.0) 01/14/18 06:04 Ur Specific [place] >= 1.030 (1.005-1.035) 01/14/18 06:04 Urine Protein Negative mg/dL (<30 mg/dL) 01/14/18 06:04 Urine Glucose (UA) Negative mg/dL (NEGATIVE) 01/14/18 06:04 Urine Ketones Negative mg/dL (NEGATIVE) 01/14/18 06:04 Urine Blood Negative (NEGATIVE) 01/14/18 06:04 Urine Nitrate Negative (NEGATIVE) 01/14/18 06:04 Urine Bilirubin Negative (NEGATIVE) 01/14/18 06:04 Urine Urobilinogen 0.2 E.U./dL (<1 E.U./dL) 01/14/18 06:04 Ur Leukocyte Esterase Negative Roman/uL (NEGATIVE) 01/14/18 06:04 - Hospital Course Hospital Course: 62 year old male with a past medical history significant for BPH, Ulcerative Colitis, Crohn's disease, GIB, gastric ulcer, and iron deficiency anemia who presents with one day of worsening diffuse sharp abdominal pain that is constant and failure to pass flatus or stool. Surgery and GI were consulted. Patient had a CT abdomen/pelvis without contrast done in the ED which showed mid to distal SBO with transition point in the right midabdomen. Patient passed stool and flatus but has failed diet progression and required NGT. This drained ~50cc of gastric contents and then removed when patient tolerated diet progression without N/V. CT Abdomen/Pelvis with PO and IV contrast showed no focal obstructing strictures and mild dilatation of small bowel. Reglan 5mg IVP Q8 and Morphine 4mg IVP Q4H PRN were started for pain control. Zofran 4mg IVP Q4H PRN was started for N/V. IVF were used for patient when he was NPO. Patient was discharged on 01/19/18 with the following instructions: Please follow up with your primary care doctor within one week Please follow up with your GI doctor within one week Please continue pureed diet. Information regarding this has been included in this paperwork. Please avoid dairy products If your symptoms worsen or persist, please seek emergency medical attention - Date & Time of H&P Date of H&P: 01/14/18 Time of H&P: 15:00 Discharge Exam - Head Exam Head Exam: ATRAUMATIC, NORMAL INSPECTION, NORMOCEPHALIC - Eye Exam Eye Exam: EOMI, Normal appearance Pupil Exam: NORMAL ACCOMODATION, PERRL - ENT Exam ENT Exam: Mucous Membranes Moist, Normal Exam - Neck Exam Neck exam: Full Rom, Normal Inspection - Respiratory Exam Respiratory Exam: Clear to PA & Lateral, NORMAL BREATHING PATTERN, UNREMARKABLE - Cardiovascular Exam Cardiovascular Exam: REGULAR RHYTHM - GI/Abdominal Exam GI & Abdominal Exam: Normal Bowel Sounds, Unremarkable - Extremities Exam Extremities exam: full ROM, normal capillary refill, normal inspection, pedal pulses present - Back Exam Back exam: FULL ROM, NORMAL INSPECTION - Neurological Exam Neurological exam: Alert, CN II-XII Intact, Normal Gait, Oriented x3, Reflexes Normal - Psychiatric Exam Psychiatric exam: Normal Affect, Normal Mood - Skin Skin Exam: Dry, Intact, Normal Color, Warm Discharge Plan - Follow Up Plan Condition: FAIR Disposition: HOME/ ROUTINE Instructions: Crohn's Disease in Adults, Small Bowel Obstruction (DC), Pureed Diet Additional Instructions: Please follow up with your primary care doctor within one week Please follow up with your GI doctor within one week Please continue pureed diet. Information regarding this has been included in this paperwork. Please avoid dairy products If your symptoms worsen or persist, please seek emergency medical attention Referrals: Douglas Lindo MD [Primary Care Provider] - Rosa Albarran MD [Medical Doctor] - <Javier Valdez - Last Filed: 01/19/18 16:18> Provider - Provider Date of Admission: 01/14/18 06:18 Attending physician: Javier Valdez MD Primary care physician: Douglas Lindo MD Hospital Course - Lab Results Lab Results: Most Recent Lab Values WBC 6.2 10^3/ul (4.5-11.0) 01/19/18 06:30 RBC 4.80 10^6/uL (3.5-6.1) 01/19/18 06:30 Hgb 13.8 g/dL (14.0-18.0) L 01/19/18 06:30 Hct 39.3 % (42.0-52.0) L 01/19/18 06:30 MCV 81.9 fl (80.0-105.0) 01/19/18 06:30 MCH 28.8 pg (25.0-35.0) 01/19/18 06:30 MCHC 35.1 g/dl (31.0-37.0) 01/19/18 06:30 RDW 13.0 % (11.5-14.5) 01/19/18 06:30 Plt Count 185 10^3/uL (120.0-450.0) 01/19/18 06:30 MPV 11.1 fl (7.0-11.0) H 01/19/18 06:30 Gran % 49.7 % (50.0-68.0) L 01/19/18 06:30 Lymph % (Auto) 29.6 % (22.0-35.0) 01/19/18 06:30 Mineral % (Auto) 16.7 % (1.0-6.0) H 01/19/18 06:30 Eos % (Auto) 3.4 % (1.5-5.0) 01/19/18 06:30 Baso % (Auto) 0.6 % (0.0-3.0) 01/19/18 06:30 Gran # 3.07 (1.4-6.5) 01/19/18 06:30 Lymph # (Auto) 1.8 (1.2-3.4) 01/19/18 06:30 Mineral # (Auto) 1.0 (0.1-0.6) H 01/19/18 06:30 Eos # (Auto) 0.2 (0.0-0.7) 01/19/18 06:30 Baso # (Auto) 0.04 K/mm3 (0.0-2.0) 01/19/18 06:30 PT 11.8 SECONDS (9.4-12.5) 01/14/18 04:08 INR 1.03 (0.93-1.08) 01/14/18 04:08 APTT 26.4 Seconds (25.1-36.5) 01/14/18 04:08 Sodium 142 mmol/L (132-148) 01/19/18 06:30 Potassium 3.9 mmol/L (3.6-5.0) 01/19/18 06:30 Chloride 105 mmol/L (98-107) 01/19/18 06:30 Carbon Dioxide 25 mmol/L (21-33) 01/19/18 06:30 Anion Gap 16 (10-20) 01/19/18 06:30 BUN 7 mg/dL (7-21) 01/19/18 06:30 Creatinine 0.9 mg/dl (0.8-1.5) 01/19/18 06:30 Est GFR ( Amer) > 60 01/19/18 06:30 Est GFR (Non-Af Amer) > 60 01/19/18 06:30 Random Glucose 90 mg/dL (70-110) 01/19/18 06:30 Lactic Acid 1.8 mmol/L (0.7-2.1) 01/14/18 04:08 Calcium 9.6 mg/dL (8.4-10.5) 01/19/18 06:30 Magnesium 2.2 mg/dL (1.7-2.2) 01/14/18 04:08 Total Bilirubin 0.6 mg/dL (0.2-1.3) 01/17/18 06:30 AST 27 U/L (17-59) 01/17/18 06:30 ALT 33 U/L (7-56) 01/17/18 06:30 Alkaline Phosphatase 56 U/L (38-126) 01/17/18 06:30 Lactate Dehydrogenase 396 U/L (333-699) 01/14/18 04:08 Total Creatine Kinase 103 U/L (35-230) 01/14/18 04:08 Troponin I < 0.01 ng/mL 01/14/18 04:08 Total Protein 7.1 g/dL (5.8-8.3) 01/17/18 06:30 Albumin 3.7 g/dL (3.0-4.8) 01/17/18 06:30 Globulin 3.4 gm/dL 01/17/18 06:30 Albumin/Globulin Ratio 1.1 (1.1-1.8) 01/17/18 06:30 Amylase 89 U/L (35-125) 01/14/18 04:08 Lipase 213 U/L (23-300) 01/14/18 04:08 Urine Color Yellow (YELLOW) 01/14/18 06:04 Urine Appearance Clear (CLEAR) 01/14/18 06:04 Urine pH 6.0 (4.7-8.0) 01/14/18 06:04 Ur Specific [place] >= 1.030 (1.005-1.035) 01/14/18 06:04 Urine Protein Negative mg/dL (<30 mg/dL) 01/14/18 06:04 Urine Glucose (UA) Negative mg/dL (NEGATIVE) 01/14/18 06:04 Urine Ketones Negative mg/dL (NEGATIVE) 01/14/18 06:04 Urine Blood Negative (NEGATIVE) 01/14/18 06:04 Urine Nitrate Negative (NEGATIVE) 01/14/18 06:04 Urine Bilirubin Negative (NEGATIVE) 01/14/18 06:04 Urine Urobilinogen 0.2 E.U./dL (<1 E.U./dL) 01/14/18 06:04 Ur Leukocyte Esterase Negative Roman/uL (NEGATIVE) 01/14/18 06:04 Attending/Attestation - Attestation I have personally seen and examined this patient.: Yes I have fully participated in the care of the patient.: Yes I have reviewed all pertinent clinical information, including history, physical exam and plan: Yes Notes (Text): 01/19/18 16:17 Attending note; Patient seen and examined with resident. Patient is a 62 year old male with a past medical history significant for Crohn 's disease, colectomy, gastric ulcer, BPH and iron deficiency anemia who presents with one day of worsening diffuse sharp abdominal pain. CT abdomen and pelvis showed mild to distal small bowel obstruction with transition point in the right mid abdomen. had NG tube palcement and removal. Tolerating pure diet. Still having bowel movement. surgery evaluation Appreciated. GI evaluation with Dr. Albarran appreciated. CT abdomen and pelvis showed dilated bowel loop without significant obstruction. upon discharge the patient will follow-up with PMD Dr. Lindo. CAT scan results given. Results of CAT scan in a CD given. Patient will follow-up with his primary GI upon discharge. Case discussed with him in detail. Diagnosis Small bowel; bowel obstruction Crohn's disease Colectomy
== END 2018-01-19 09:32 | disposition home or self-care (01) | DRG 181 ==
LOC: ED 02:44 → ERH 06:18 → 5RSO 09:08
PROVIDERS: ADMIT Hospitalist; ATTEND Internal Medicine
DX: K56.50 Intestinal adhesions [bands], unspecified as to partial versus complete obstruction (principal); K50.90 Crohn's disease, unspecified, without complications; K43.9 Ventral hernia without obstruction or gangrene; K51.90 Ulcerative colitis, unspecified, without complications; K76.9 Liver disease, unspecified; K80.20 Calculus of gallbladder without cholecystitis without obstruction; N20.0 Calculus of kidney; N40.0 Benign prostatic hyperplasia without lower urinary tract symptoms; Z79.1 Long term (current) use of non-steroidal anti-inflammatories (NSAID); Z87.11 Personal history of peptic ulcer disease; Z87.442 Personal history of urinary calculi; Z90.49 Acquired absence of other specified parts of digestive tract; D50.9 Iron deficiency anemia, unspecified; Z98.42 Cataract extraction status, left eye; Z98.41 Cataract extraction status, right eye; Z96.1 Presence of intraocular lens

== ENCOUNTER 2018-12-13 08:13 | Outpatient (CLI) | payer MEDICAID | END 2018-12-13 08:14 | disposition home or self-care (01) | LOC: CARDIO 08:13 | DX: I25.10 Atherosclerotic heart disease of native coronary artery without angina pectoris (principal) ==

== ENCOUNTER 2019-01-13 08:16 | Outpatient (CLI) | payer MEDICAID | END 2019-01-13 08:17 | disposition home or self-care (01) | LOC: CARDIO 08:16 | DX: R94.30 Abnormal result of cardiovascular function study, unspecified (principal) ==

== ENCOUNTER 2019-03-06 06:22 | Day surgery (SDC) | payer MEDICAID ==
[2019-01-13 14:01] VITALS: BMI 23.8
[2019-03-06 06:53] LABS: BASO # 0.05 K/mm3 (0.0-2.0); BASO % 0.8 % (0.0-3.0); EOS # 0.1 (0.0-0.7); EOS % 1.3 % (1.5-5.0); HEMOGLOBIN 14.9 g/dL (14.0-18.0); LYMPH # 2.2 (1.2-3.4); LYMPH % 35.3 % (22.0-35.0); MEAN CORPUSCULAR HEMOGLOBIN 30.4 pg (25.0-35.0); MEAN CORPUSCULAR HGB CONC 34.8 g/dl (31.0-37.0); MEAN PLATELET VOLUME 10.2 fl (7.0-11.0); MONO # 0.5 (0.1-0.6); MONO % 8.9 % (1.0-6.0); RBC 4.9 10^6/uL (3.5-6.1); WHITE BLOOD COUNT 6.1 10^3/uL (4.5-11.0)
[2019-03-06] MEDS ORDERED: Lidocaine PF 2% (5 ml) Inj (For Cardiac Arrhy) ONE (06:54)
[2019-03-06] MEDS ORDERED: Iohexol 350mgl/ml 50 ML ONE (06:54)
[2019-03-06] MEDS ORDERED: Iohexol 350 MG/100 ML VIAL ONE (06:54)
[2019-03-06 06:55] LABS: MEAN CELL VOLUME 87.3 fl (80.0-105.0)
[2019-03-06 07:01] LABS: BLOOD UREA NITROGEN 18 mg/dL (7-21); CALCIUM 9.4 mg/dL (8.4-10.5); GFR NON-AFRICAN AMERICAN > 60; HDL CHOLESTEROL 41 mg/dL (29-60)
[2019-03-06 07:04] LABS: INR 1.04; PARTIAL THROMBOPLASTIN TIME 31.8 Seconds (26.9-38.3); PROTHROMBIN TIME 11.8 SECONDS (9.4-12.5)
[2019-03-06 07:12] LABS: LDL CHOLESTEROL 121 mg/dL (0-129)
[2019-03-06] MEDS ORDERED: Midazolam 2 MG/2 ML VIAL ONE ×2 (07:44→07:47)
[2019-03-06] MEDS ORDERED: Sodium Chloride 0.9% 1,000 ML IV SCH (08:15)
[2019-03-06 09:03] VITALS: TEMP 97.5
--- NOTE | 2019-03-06 10:20 | CARDCATH ---
PROCEDURE DATE: 03/06/2019 HISTORY: The patient is a 63-year-old male who presents with recurrent chest pain. He suffers from multiple cardiac risk factors including diabetes mellitus and hypercholesterolemia. His stress test was abnormal. Cardiac catheterization was recommended. PROCEDURE: Left heart catheterization with coronary artery and left ventriculogram. The right femoral artery was cannulated with 6-Ben[place] sheath. There were no complications. I have performed moderate sedation which included the presence of an independent trained observer that assisted in monitoring the patient's level of consciousness and physiologic status. After administration of Versed and fentanyl, my intra service time was 30 minutes. The findings on catheterization revealed a right-dominant circulation. The patient's arteries were thinned; however, the RCA was within normal limits. The left main artery was unremarkable. The LAD and diagonal vessels were free of significant disease. The circumflex artery was unremarkable. LV function was measured in the ALTAMIRANO projection. The ALTAMIRANO projection, wall motion was normal. Estimated ejection fraction was 50%-55%. AngioSeal was used to close the femoral artery site. The patient tolerated the procedure well. In summary, the procedure revealed unremarkable coronary arteries, normal LV function. Given these findings, the patient undergo a cardiac risk reduction program. Because of his altered colitis as well as a history of issues with aspirin, no aspirin to be taken. However, given his LDL of 121, statin therapy should be part of his cardiac risk reduction program. Hau Ramirez MD
--- NOTE | 2019-03-06 10:46 | CARD ---
APPROVED REPORT Date of service: 03/06/2019 EKG Measurement Heart [id number] <Conclusion> Sinus bradycardia Incomplete right bundle branch block Borderline ECG
[2019-03-06 11:16] VITALS: PULSE 53
[2019-03-06 12:11] VITALS: RESP 20; O2SAT 97
[2019-03-06 12:53] VITALS: BP 115/64
== END 2019-03-06 15:00 | disposition home or self-care (01) ==
LOC: CATH 06:22
PROVIDERS: ATTEND Internal Medicine Cardiovascular Disease
DX: I25.118 Atherosclerotic heart disease of native coronary artery with other forms of angina pectoris (principal); E11.9 Type 2 diabetes mellitus without complications; E78.00 Pure hypercholesterolemia, unspecified; R06.09 Other forms of dyspnea; R94.39 Abnormal result of other cardiovascular function study
CPT/HCPCS: 36415; 80048; 80061; 85025; 85610; 85730; 86850; 86900; 93005; 93458; 99152; C1760; C1769; C2629; J1644; J2250; J3010; J7030; Q9967